=== PATIENT | male | born 1955 | race Caucasian/White ===

== ENCOUNTER → 2020-02-21 11:11 | Outpatient (BNVA) | payer MEDICARE, MEDICAID, SELFPAY | PROVIDERS: PCP Internal Medicine; Visit Provider Urology | DX: R97.20 Elevated prostate specific antigen [PSA] (principal); N40.0 Benign prostatic hyperplasia without lower urinary tract symptoms | CPT/HCPCS: 84153 ==

== ENCOUNTER 2020-08-17 19:28 | Inpatient (IN) | payer MEDICARE, MEDICAID, SELFPAY ==
[2020-08-17 19:38] VITALS: BP 152/98; PULSE 106; RESP 22; TEMP 36.5; O2SAT 95; BMI 19.5
--- NOTE | 2020-08-17 20:15 | XRR_ITS ---
PROCEDURE INFORMATION: Exam: XR Abdomen, 1 View Exam date and time: 08/17/2020 8:23 PM Age: 64 years old Clinical indication: Abdominal pain; Generalized; Prior surgery; Surgery date: 6+ months; Surgery type: Hernia; Additional info: Abd pain TECHNIQUE: Imaging protocol: XR of the abdomen. Views: Frontal supine view of the abdomen. 1 View. COMPARISON: CR Upper GI w/ SBS [id number] 11/19/2017 8:17 AM FINDINGS: Gastrointestinal tract: There are dilated loops of small bowel with air-fluid levels compatible with a partial small bowel obstruction. Greatest transverse measurement of the dilated loops of bowel is 5.2 cm. No dilatation of the colon. Bones/joints: Unremarkable. XR/XR KUB portable [id number] IMPRESSION: Partial small bowel obstruction.
[2020-08-17] MEDS: sodium chloride 0.9% 1,000 ML 999 ML IV (20:43)
[2020-08-17 20:49] LABS: Basophils % 0.4 %; Eosinophils % 0.2 %; Hematocrit 44.1 % (42.0-52.0); Hemoglobin 14.5 g/dL (11.7-16.6); Lymphocytes % 18.3 %; Mean Corpuscular HGB Conc 32.9 g/dL (30.0-36.0); Mean Corpuscular Hemoglobin 32.6 pg (28.0-34.0); Mean Corpuscular Volume 99.1 fL (80-94); Mean Platelet Volume 10.4 fL (7.4-10.4); Monocytes # 0.6 10^3/uL (0.2-0.9); Monocytes % 10.5 %; Neutrophils # 3.96 10^3/uL (1.8-7.7); Neutrophils % 70.4 %; Nucleated Red Blood Cells % 0 %; Platelet Count 190 10^3/cmm (130-400); Red Blood Count 4.45 10^6/uL (4.1-5.3); Red Cell Distribution Width 11.8 % (12.1-15.1); White Blood Count 5.6 10^3/uL (4.0-10.0)
[2020-08-17 21:02] VITALS: BP 146/83; PULSE 86; RESP 18; O2SAT 93
[2020-08-17 21:06] LABS: Alanine Aminotransferase 18 U/L (0-41); Alkaline Phosphatase 108 IU/L (40-130); Anion Gap 13.8 (5-19); Aspartate Amino Transferase 18 U/L (0-40); Blood Urea Nitrogen 40 mg/dL (8-23); Calcium 9.5 mg/dL (8.5-10.5); Carbon Dioxide 29 mmol/L (22-29); Chloride 103 mmol/L (98-107); Globulin 3.1 g/dL (1.3-4.6); Glomerular Filtration Rate 97.3 mL/min (90-130); Glucose 133 mg/dL (65-115); Lipase 27 U/L (13-60); Osmolality Calculated 306 mOsm/kg (285-295); Potassium 3.8 mmol/L (3.5-5.1); Sodium 142 mmol/L (136-145); Total Bilirubin 0.7 mg/dL (0.15-1.2); Total Protein 7.1 g/dL (6.6-8.7)
--- NOTE | 2020-08-17 21:08 | PC.NURSE ---
attempt to void, with caregiver. Pt unable to void. Notified provider Pt receiving IV fluids
[2020-08-17 22:02] VITALS: BP 213/86; PULSE 78; RESP 18; O2SAT 97
--- NOTE | 2020-08-17 22:22 | PC.NURSE ---
caregiver at bedside
--- NOTE | 2020-08-17 22:29 | CTR_ITS ---
PROCEDURE INFORMATION: Exam: CT Abdomen And Pelvis With Contrast Exam date and time: 08/17/2020 10:46 PM Age: 64 years old Clinical indication: Nausea and vomiting; Prior surgery; Surgery date: 6+ months; Surgery type: Hernia; Patient HX: N/v fever; Additional info: Concerns for bowel obstruction TECHNIQUE: Imaging protocol: Computed tomography of the abdomen and pelvis with intravenous contrast. Radiation optimization: All CT scans at this facility use at least one of these dose optimization techniques: automated exposure control; mA and/or kV adjustment per patient size (includes targeted exams where dose is matched to clinical indication); or iterative reconstruction. Contrast material: OMNI 30; Contrast volume: 95 ml; Contrast route: INTRAVENOUS (IV); COMPARISON: CT Chest/Abdomen/Pelvis w IV* 10/13/2017 11:01 AM RADIATION DOSE METRICS: Total DLP (mGy-cm): 334.25 FINDINGS: Lungs: Nonspecific bibasilar ground-glass opacity is present, consistent with atelectasis, edema, or pneumonia. Liver: Unremarkable.No mass. Gallbladder and bile ducts: Normal. No calcified stones. No ductal dilation. Pancreas: Normal. No ductal dilation. Spleen: Normal. No splenomegaly. Adrenal glands: Normal. No mass. Kidneys and ureters: There is no evidence of hydronephrosis. There is no evidence of renal calcifications. Stomach and bowel: There are dilated loops of small bowel with air-fluid levels compatible with a partial small bowel obstruction with a greatest transverse measurement of 4.5 cm. There is an abrupt caliber change in the right upper abdomen where there is a probable internal hernia with loops of small bowel displaced lateral and superior to the hepatic flexure of the colon. There is a stretched appearance of the mesenteric vessels coronal image 36 and sagittal image 56 and exiting loops of bowel are not distended. No dilatation of the colon. There is a small quantity of stool. Appendix: The appendix is unremarkable. Intraperitoneal space: There is a small or old appearance of the mesenteric vessels extending into the hernia with a jacqui-cross sign indicating a twist of the mesenteric vessels into the hernia. Vasculature: Unremarkable.No abdominal aortic aneurysm. Lymph nodes: Unremarkable.No enlarged lymph nodes. Urinary bladder: There is nonspecific bladder wall thickening. This may be related to incomplete distention. Reproductive: The prostate demonstrates moderate nonspecific enlargement. The seminal vesicles are normal. Bones/joints: Unremarkable. No acute fracture. Soft tissues: Unremarkable. CT/CT abdomen pelvis w con* [id number] IMPRESSION: 1. Partial small bowel obstruction with transition zone right upper quadrant within an internal hernia. No pneumatosis or free air. 2. Nonspecific bibasilar ground-glass opacity is present, consistent with atelectasis, edema, or pneumonia. Radiation Dose CTDIVOL = (mGy): DLP = 334.25 (mGy-cm)
--- NOTE | 2020-08-17 22:36 | ED_ITS ---
Documented by User: Salbador Hernandez 08/17/20 23:58 HPI - Nausea/Vomiting/Diarrhea General: Chief complaint: Nausea/Vomiting/Diarrhea Stated complaint: n/v Time Seen by Provider: 08/17/20 19:36 Source: family and other (Caregiver) Mode of arrival: ambulatory Limitations: no limitations History of Present Illness: HPI Narrative: 64-year-old male presents to emergency room chief complaint of appetite reduction and reduced appetite with abdominal pain. Patient presents from a long term facility as he has developmental delay. Per his caregivers he is nonverbal however he reported to have reduced appetite oral intake as well as reduced urination. Per the caregiver the patient has not had any recent fever or chills he has not had any shortness of breath or any obvious infections. Patient has previously had a couple urinary tract infections. The patient did have 1 bowel prior to arrival as witnessed by the caregiver that it was nonbloody in nature. Associated nausea: Yes Associated abdominal pain: Yes Associated symtoms: Reports altered mental status (Chronically altered at baseline per caregiver) and nausea; Denies anxiety, change in vision, chest pain, fatigue, headache(s), malaise or palpitations Review of Systems General: Reports: 10 or more systems reviewed and unremarkable except in HPI and below Const: Denies: fever(s), chills, fatigue or malaise Eyes: Denies: change in vision or blurry vision Card: Denies: chest pain or palpitations Resp: Denies: dyspnea or productive cough GI: Reports: abdominal pain and nausea; Denies: vomiting : Reports: oliguria; Denies: flank pain Musc: Denies: extremity pain or extremity swelling Skin/Breast: Denies: rash or pruritus Neuro: Denies: headache(s) Psych: Denies: anxiety or depression [place]/Lymph: Denies: easy bleeding All/Imm: Denies: urticaria, throat swelling or facial swelling PFSH ED PFSH: Medical History Atherosclerosis Bladder wall thickening Elevated PSA Gross hematuria HTN (hypertension) Mental disorder Nonverbal Prostate enlargement Type 2 diabetes mellitus Surgical History Hx of inguinal hernia repair Family History (Updated 08/18/20 @ 01:52 by Nilesh Briseno MD) Brother Intellectual disability Social History Smoking and tobacco status: never smoked Alcohol intake: never Adopted: Yes Lives independently: No Housing: Assisted Living Facility Marital status: Single Current occupational status: disabled History of recent travel: No Physical Exam Narrative: EXAM NARRATIVE: Patient appears to be in mild discomfort he is non- verbal at baseline per caregiver with no focal neuro deficits noted. Const: COMMON NORMALS: no acute distress, patient oriented x3 and healthy appearing EXAM LIMITATIONS: altered mental status (Chronically altered at baseline per caregiver) HENMT: COMMON NORMALS: normocephalic and atraumatic HEAD & SCALP: normocephalic and atraumatic Eye: COMMON NORMALS: Equal, round and reactive pupils present and EOMs intact bilaterally PUPIL: Yes Equal, round and reactive pupils present Neck/C-Spine: COMMON NORMALS: full ROM, supple and no JVD Lymph: LYMPHATIC: no lymphadenopathy noted Chest: COMMONS NORMALS: normal inspection of the chest Resp: COMMON NORMALS: normal respiratory effort, No retractions and clear to auscultation bilaterally EFFORT & INSPECTION: Yes able to speak in complete sentences and Yes symmetric chest movement AUSCULTATION: clear to auscultation bilaterally Cardio: COMMON NORMALS: no JVD, regular rate and regular rhythm RATE: regular rate RHYTHM: regular rhythm GI: COMMON NORMALS: Soft to palpation and non-tender INSPECTION: Yes normal to inspection AUSCULTATION: Yes Hypoactive bowel sounds present and No High- pitched bowel sounds present PALPATION: Yes Soft to palpation and Yes Guarding due to palpation present (GI) (Guarding noted with mild distention negative McBurney's point tenderness ap) RECTAL EXAM: Yes deferred : COMMON NORMALS: Yes no CVA tenderness BLADDER/KIDNEY EXAM: Yes no CVA tenderness Back/Pelvis: COMMON NORMALS: no CVA tenderness Extremity: COMMON NORMALS: normal to inspection and full ROM Neuro: COMMON NORMALS: patient oriented x3, CN's II-XII intact bilaterally, moves all extremities and no focal motor deficits Psych: COMMON NORMALS: mental status grossly normal, Normal thought process present, cooperative and normal affect THOUGHT PROCESS: Normal thought process present Skin: COMMON NORMALS: no rashes or lesions noted GENERAL SKIN EXAM: no rashes or lesions noted Course Vital Signs: Vital signs: Vital Signs Temperature 97.6 F 08/18/20 02:09 Pulse Rate 84 08/18/20 02:09 Respiratory Rate 18 08/18/20 02:09 Blood Pressure 136/62 08/18/20 02:09 Pulse Oximetry 97 08/18/20 02:09 MDM - Nausea/Vomiting/Diarrhea MDM Narrative: Medical decision making narrative: Due to patient symptom condition IV is established lab work and imaging was obtained underlying concerns of constipation versus abdominal pain versus 1 more to many different things as prominent x-ray imaging was evaluated that reveals ileus versus potential obstruction lots of air in the colon with dilation. At this time lab work looks unremarkable borderline concerns of the of his abdominal distention could be obtundation I will be obtaining a CT of the abdomen pelvis with IV and oral contrast if earlier look into this matter. Patient was found to have a small bowel obstruction due to concerns of internal hernia I spoke to Dr. Wood on-call surgeon who recommends to obtain another CT with triple contrast which the patient possibly may have a malformation congenital contribute to his symptoms which recommends admission to the hospitalist with a consult. Currently waiting on to speak with Dr. Briseno on for the hospitalist service. This patient was signed out to my colleague Dr. Baird at [id number] Lab Data: Labs: Lab Results 08/17/20 08/17/20 08/17/20 Range/Units 20:42 20:42 20:51 WBC 5.6 (4.0-10.0) 10^3/ uL RBC 4.45 (4.1-5.3) 10^6/u L Hgb 14.5 (11.7-16.6) g/dL Hct 44.1 (42.0-52.0) % MCV 99.1 H (80-94) fL MCH 32.6 (28.0-34.0) pg MCHC 32.9 (30.0-36.0) g/dL RDW 11.8 L (12.1-15.1) % Plt Count 190 (130-400) 10^3/c mm MPV 10.4 (7.4-10.4) fL Neut % (Auto) 70.4 % Lymph % (Auto) 18.3 % Newton % (Auto) 10.5 % Eos % (Auto) 0.2 % Baso % (Auto) 0.4 % Neut # (Auto) 3.96 (1.8-7.7) 10^3/u L Lymph # (Auto) 1.0 (0.8-4.8) 10^3/u L Newton # (Auto) 0.6 (0.2-0.9) 10^3/u L Eos # (Auto) 0.0 (0.0-0.8) 10^3/u L Baso # (Auto) 0.0 (0.0-0.1) 10^3/u L Nucleated RBC % (a uto) 0 % Nucleated RBCs # 0.0 /100WBC Sodium 142 (136-145) mmol/L Potassium 3.8 (3.5-5.1) mmol/L Chloride 103 (98-107) mmol/L Carbon Dioxide 29 (22-29) mmol/L Anion Gap 13.8 (5-19) BUN 40 H (8-23) mg/dL Creatinine 0.8 (0.7-1.2) mg/dL GFR Calculation 97.3 (90-130) mL/min Glucose 133 H (65-115) mg/dL Calculated Osmolal ity 306 H (285-295) mOsm/k g Lactate 1.0 (0.5-2.2) mmol/L Calcium 9.5 (8.5-10.5) mg/dL Total Bilirubin 0.7 (0.15-1.2) mg/dL AST 18 (0-40) U/L ALT 18 (0-41) U/L Alkaline Phosphata se 108 (40-130) IU/L Total Protein 7.1 (6.6-8.7) g/dL Albumin 4.0 (3.5-5.2) g/dL Globulin 3.1 (1.3-4.6) g/dL Lipase 27 (13-60) U/L Urine Color (Yellow) Urine Appearance (CLEAR) Urine pH (5-7) Ur Specific Gravit y (1.005-1.030) Urine Protein (Negative) Urine Glucose (UA) (Normal) Urine Ketones (Negative) Urine Blood (Negative) Urine Nitrate (Negative) Urine Bilirubin (Negative) Urine Urobilinogen (Negative) mg/dL Ur Leukocyte Paulien ase (Negative) 08/17/20 Range/Units 22:12 WBC (4.0-10.0) 10^3/ uL RBC (4.1-5.3) 10^6/u L Hgb (11.7-16.6) g/dL Hct (42.0-52.0) % MCV (80-94) fL MCH (28.0-34.0) pg MCHC (30.0-36.0) g/dL RDW (12.1-15.1) % Plt Count (130-400) 10^3/c mm MPV (7.4-10.4) fL Neut % (Auto) % Lymph % (Auto) % Newton % (Auto) % Eos % (Auto) % Baso % (Auto) % Neut # (Auto) (1.8-7.7) 10^3/u L Lymph # (Auto) (0.8-4.8) 10^3/u L Newton # (Auto) (0.2-0.9) 10^3/u L Eos # (Auto) (0.0-0.8) 10^3/u L Baso # (Auto) (0.0-0.1) 10^3/u L Nucleated RBC % (a uto) % Nucleated RBCs # /100WBC Sodium (136-145) mmol/L Potassium (3.5-5.1) mmol/L Chloride (98-107) mmol/L Carbon Dioxide (22-29) mmol/L Anion Gap (5-19) BUN (8-23) mg/dL Creatinine (0.7-1.2) mg/dL GFR Calculation (90-130) mL/min Glucose (65-115) mg/dL Calculated Osmolal ity (285-295) mOsm/k g Lactate (0.5-2.2) mmol/L Calcium (8.5-10.5) mg/dL Total Bilirubin (0.15-1.2) mg/dL AST (0-40) U/L ALT (0-41) U/L Alkaline Phosphata se (40-130) IU/L Total Protein (6.6-8.7) g/dL Albumin (3.5-5.2) g/dL Globulin (1.3-4.6) g/dL Lipase (13-60) U/L Urine Color Yellow (Yellow) Urine Appearance Clear (CLEAR) Urine pH 5 (5-7) Ur Specific Gravit y 1.020 (1.005-1.030) Urine Protein Neg (Negative) Urine Glucose (UA) Norm (Normal) Urine Ketones Negative (Negative) Urine Blood Neg (Negative) Urine Nitrate Negative (Negative) Urine Bilirubin 1+ H (Negative) Urine Urobilinogen 4 H (Negative) mg/dL Ur Leukocyte Pauline ase Negative (Negative) Discharge Plan Discharge Patient Disposition: Admitted As Inpatient Admit Provider: Nilesh Briseno Clinical Impression: Obstructed internal hernia, Partial small bowel obstruction Condition: Stable Coding Level of Care Code ED Medical Territory Manager for Chg Fwd Exam Comprehensive Documented by User: Davy Baird DO 08/18/20 03:36 HPI - Nausea/Vomiting/Diarrhea General: Chief complaint: Nausea/Vomiting/Diarrhea Stated complaint: n/v Time Seen by Provider: 08/17/20 19:36 PFSH ED PFSH: Medical History Atherosclerosis Bladder wall thickening Elevated PSA Gross hematuria HTN (hypertension) Mental disorder Nonverbal Prostate enlargement Type 2 diabetes mellitus Surgical History Hx of inguinal hernia repair Family History (Updated 08/18/20 @ 01:52 by Nilesh Briseno MD) Brother Intellectual disability Social History Smoking and tobacco status: never smoked Alcohol intake: never Adopted: Yes Lives independently: No Housing: Assisted Living Facility Marital status: Single Current occupational status: disabled History of recent travel: No Course Vital Signs: Vital signs: Vital Signs Temperature 97.6 F 08/18/20 02:09 Pulse Rate 84 08/18/20 02:09 Respiratory Rate 18 08/18/20 02:09 Blood Pressure 136/62 08/18/20 02:09 Pulse Oximetry 97 08/18/20 02:09 MDM - Nausea/Vomiting/Diarrhea MDM Narrative: Medical decision making narrative: 64-year-old gentleman checked out to me by Dr. Zamarripa. This patient is nonverbal. History is tough. He appears to have a bowel obstruction by CT. Surgery who was consulted requested an oral contrast CT, which shows similar findings with dilated loops of small bowel proximally distended stomach, and a decompressed distal small bowel. NG tube was placed in the emergency department with good output. He is admitted to the hospitalist service with surgical consultation. Lab Data: Labs: Lab Results 08/17/20 08/17/20 08/17/20 Range/Units 20:42 20:42 20:51 WBC 5.6 (4.0-10.0) 10^3/ uL RBC 4.45 (4.1-5.3) 10^6/u L Hgb 14.5 (11.7-16.6) g/dL Hct 44.1 (42.0-52.0) % MCV 99.1 H (80-94) fL MCH 32.6 (28.0-34.0) pg MCHC 32.9 (30.0-36.0) g/dL RDW 11.8 L (12.1-15.1) % Plt Count 190 (130-400) 10^3/c mm MPV 10.4 (7.4-10.4) fL Neut % (Auto) 70.4 % Lymph % (Auto) 18.3 % Newton % (Auto) 10.5 % Eos % (Auto) 0.2 % Baso % (Auto) 0.4 % Neut # (Auto) 3.96 (1.8-7.7) 10^3/u L Lymph # (Auto) 1.0 (0.8-4.8) 10^3/u L Newton # (Auto) 0.6 (0.2-0.9) 10^3/u L Eos # (Auto) 0.0 (0.0-0.8) 10^3/u L Baso # (Auto) 0.0 (0.0-0.1) 10^3/u L Nucleated RBC % (a uto) 0 % Nucleated RBCs # 0.0 /100WBC Sodium 142 (136-145) mmol/L Potassium 3.8 (3.5-5.1) mmol/L Chloride 103 (98-107) mmol/L Carbon Dioxide 29 (22-29) mmol/L Anion Gap 13.8 (5-19) BUN 40 H (8-23) mg/dL Creatinine 0.8 (0.7-1.2) mg/dL GFR Calculation 97.3 (90-130) mL/min Glucose 133 H (65-115) mg/dL Calculated Osmolal ity 306 H (285-295) mOsm/k g Lactate 1.0 (0.5-2.2) mmol/L Calcium 9.5 (8.5-10.5) mg/dL Total Bilirubin 0.7 (0.15-1.2) mg/dL AST 18 (0-40) U/L ALT 18 (0-41) U/L Alkaline Phosphata se 108 (40-130) IU/L Total Protein 7.1 (6.6-8.7) g/dL Albumin 4.0 (3.5-5.2) g/dL Globulin 3.1 (1.3-4.6) g/dL Lipase 27 (13-60) U/L Urine Color (Yellow) Urine Appearance (CLEAR) Urine pH (5-7) Ur Specific Gravit y (1.005-1.030) Urine Protein (Negative) Urine Glucose (UA) (Normal) Urine Ketones (Negative) Urine Blood (Negative) Urine Nitrate (Negative) Urine Bilirubin (Negative) Urine Urobilinogen (Negative) mg/dL Ur Leukocyte Pauline ase (Negative) 08/17/20 Range/Units 22:12 WBC (4.0-10.0) 10^3/ uL RBC (4.1-5.3) 10^6/u L Hgb (11.7-16.6) g/dL Hct (42.0-52.0) % MCV (80-94) fL MCH (28.0-34.0) pg MCHC (30.0-36.0) g/dL RDW (12.1-15.1) % Plt Count (130-400) 10^3/c mm MPV (7.4-10.4) fL Neut % (Auto) % Lymph % (Auto) % Newton % (Auto) % Eos % (Auto) % Baso % (Auto) % Neut # (Auto) (1.8-7.7) 10^3/u L Lymph # (Auto) (0.8-4.8) 10^3/u L Newton # (Auto) (0.2-0.9) 10^3/u L Eos # (Auto) (0.0-0.8) 10^3/u L Baso # (Auto) (0.0-0.1) 10^3/u L Nucleated RBC % (a uto) % Nucleated RBCs # /100WBC Sodium (136-145) mmol/L Potassium (3.5-5.1) mmol/L Chloride (98-107) mmol/L Carbon Dioxide (22-29) mmol/L Anion Gap (5-19) BUN (8-23) mg/dL Creatinine (0.7-1.2) mg/dL GFR Calculation (90-130) mL/min Glucose (65-115) mg/dL Calculated Osmolal ity (285-295) mOsm/k g Lactate (0.5-2.2) mmol/L Calcium (8.5-10.5) mg/dL Total Bilirubin (0.15-1.2) mg/dL AST (0-40) U/L ALT (0-41) U/L Alkaline Phosphata se (40-130) IU/L Total Protein (6.6-8.7) g/dL Albumin (3.5-5.2) g/dL Globulin (1.3-4.6) g/dL Lipase (13-60) U/L Urine Color Yellow (Yellow) Urine Appearance Clear (CLEAR) Urine pH 5 (5-7) Ur Specific Gravit y 1.020 (1.005-1.030) Urine Protein Neg (Negative) Urine Glucose (UA) Norm (Normal) Urine Ketones Negative (Negative) Urine Blood Neg (Negative) Urine Nitrate Negative (Negative) Urine Bilirubin 1+ H (Negative) Urine Urobilinogen 4 H (Negative) mg/dL Ur Leukocyte Pauline ase Negative (Negative) Discharge Plan Discharge Patient Disposition: Admitted As Inpatient Admit Provider: Nilesh Briseno Clinical Impression: Obstructed internal hernia, Partial small bowel obstruction Condition: Stable Coding Level of Care Code ED Medical Territory Manager for Chg Fwd Exam Comprehensive
[2020-08-17 22:42] LABS: Add Urine Microscopic? NO
[2020-08-17 22:52] LABS: Bilirubin Urine 1+ (Negative); Blood Urine Neg (Negative); Glucose Urine UA Norm (Normal); Ketones Urine Negative (Negative); Leukocyte Esterase Urine Negative (Negative); Nitrate Urine Negative (Negative); Protein Urine Neg (Negative); Urine Appearance Clear (CLEAR); Urine Color Yellow (Yellow); Urobilinogen Urine 4 mg/dL (Negative); pH Urine 5 (5-7)
[2020-08-17 23:00] VITALS: BP 133/86; PULSE 86; RESP 18; O2SAT 97
[2020-08-17] MEDS: iohexol 300 mg/mL 100 mL Btl IV (23:01)
--- NOTE | 2020-08-17 23:44 | CTR_ITS ---
PROCEDURE INFORMATION: Exam: CT Abdomen And Pelvis Without Contrast Exam date and time: 08/17/2020 12:05 AM Age: 64 years old Clinical indication: Other: Bowel obstruction TECHNIQUE: Imaging protocol: Computed tomography of the abdomen and pelvis without contrast. Radiation optimization: All CT scans at this facility use at least one of these dose optimization techniques: automated exposure control; mA and/or kV adjustment per patient size (includes targeted exams where dose is matched to clinical indication); or iterative reconstruction. COMPARISON: CT abdomen pelvis w con* [id number] 08/17/2020 10:49 PM RADIATION DOSE METRICS: Total DLP (mGy-cm): 458.27 FINDINGS: Lungs: There is subsegmental atelectasis in the lung bases. Liver: The liver is normal. Gallbladder and bile ducts: Cholelithiasis is present. There is no sign of cholecystitis. Pancreas: There is mild atrophy of the pancreas. Spleen: The spleen is unremarkable. Adrenal glands: The adrenal glands are unremarkable. Kidneys and ureters: The kidneys are unremarkable. No hydronephrosis or stones. No ureteral dilation. Stomach and bowel: The stomach is distended and thin walled. There is a long segment of moderately dilated small-bowel similar to the findings on 08/17/2020. The terminal ileum is decompressed. The colon is unremarkable. Appendix: The appendix is normal. Intraperitoneal space: There is no free air or significant intraperitoneal free fluid. Vasculature: There is mild aortic atherosclerotic disease. Lymph nodes: There is no lymphadenopathy in the retroperitoneum, mesentery, pelvis or inguinal regions. Urinary bladder: The urinary bladder is unremarkable. Reproductive: The prostate and seminal vesicles are unremarkable. Bones/joints: There is mild degenerative disease in the lumbar spine. The pelvis and hips are intact. Soft tissues: The abdominal wall is intact. CT/CT abdomen pelvis wo con [id number] IMPRESSION: Distal small-bowel obstruction with unchanged bowel dilation since yesterday. Radiation Dose CTDIVOL = (mGy): DLP = 458.27 (mGy-cm)
[2020-08-18] VITALS (22 sets, daily range): BP systolic 133–187; BP diastolic 62–98; PULSE 69–99; RESP 16–20; TEMP 36.4–37.3; O2SAT 90–100
--- NOTE | 2020-08-18 00:05 | PC.NURSE ---
Pt drinking contrast dye. Review with provider, hold NG tube till after 2nd CT scan. Notified caregiver.
--- NOTE | 2020-08-18 00:12 | PM.HP ---
Providers/Chief Complaint Primary Care Provider: Shu Anders MD Chief Complaint: n/v History of Present Illness Grady Britton is a 64 year old male who has history of inguinal hernia repair, intellectual disability, was brought into the hospital for chief complaint of emesis, fever and discomfort. Patient is nonverbal, caregiver is at the bedside who is endorsing that since he has had total 6 episodes of emesis, no blood was noticed, fever 101 was noted yesterday and today, today caregiver noticed that he was hunching forward with his hands around right upper quadrant area. No recent diarrhea was noticed, his recent bowel movement was today which was small caliber, yesterday his bowel movement was regular. He does get bowel regimen for constipation. At baseline he is able to walk on his own, eats regular diet, mostly flaps his arms and clap his hand. Follows up with Dr. Dudley for BPH. Diagnosis in the ER revealed normal hemodynamics, no leukocytosis, normal lactic acid, abdomen is not consistent with any mesenteric ischemia or colitis however CT abdomen revealed small bowel obstruction with hernia, Dr. Wood has been notified who has requested CT abdomen with contrast and Zosyn antibiotic Review of Systems General: Reports: ROS unobtainable due to medical condition (Intellectual disability) Medications/Allergies Home Medications Medication Instructions Recorded Confirmed Last Taken Type acetaminophen 325 mg capsule 325 mg PO .COMPLEX PRN 02/21/20 02/21/20 Unknown History bisacodyl 10 mg rectal suppository 10 mg MO DAILY PRN 02/21/20 02/21/20 Unknown History bismuth subsalicylate 525 mg/15 mL 525 mg PO Q30M PRN 02/21/20 02/21/20 Unknown History oral suspension dextromethorphan 5 mg-guaifenesin 20 ml PO .prn ml 02/21/20 02/21/20 Unknown History 50 mg/5 mL oral liquid ibuprofen 100 mg/5 mL oral 400 mg PO Q6H 02/21/20 02/21/20 Unknown History suspension lactulose 10 gram/15 mL oral 10 gm PO .prn ml 02/21/20 02/21/20 Unknown History solution loperamide 2 mg tablet 4 mg PO Q4H tab 02/21/20 02/21/20 Unknown History lovastatin 10 mg tablet 10 mg PO DAILY 02/21/20 02/21/20 Unknown History melatonin 10 mg capsule 10 mg PO .prn cap 02/21/20 02/21/20 Unknown History neomycin 3.5 mg-bacitracn Zn 400 gm TOPICAL 02/21/20 02/21/20 Unknown History unit-polymyxin 5,000 unit/g top spray ondansetron 4 mg disintegrating 4 mg PO .prn tab 02/21/20 02/21/20 Unknown History tablet polyethylene glycol 3350 17 17 gm PO DAILY 02/21/20 02/21/20 Unknown History gram/dose oral powder promethazine 25 mg tablet 25 mg PO TID PRN 02/21/20 02/21/20 Unknown History promethazine-DM 6.25 mg-15 mg/5 mL 5 ml PO Q6H PRN 02/21/20 02/21/20 Unknown History oral syrup Allergies Allergy/AdvReac Type Severity Reaction Status Date / Time No Known Allergies Allergy Unverified 02/21/20 11:01 PFSH Acute PFSH: Medical History Atherosclerosis Bladder wall thickening Elevated PSA Gross hematuria HTN (hypertension) Mental disorder Nonverbal Prostate enlargement Type 2 diabetes mellitus Surgical History Hx of inguinal hernia repair Family History (Updated 08/18/20 @ 01:52 by Nilesh Briseno MD) Brother Intellectual disability Social History Smoking and tobacco status: never smoked Alcohol intake: never Adopted: Yes Lives independently: No Housing: Assisted Living Facility Marital status: Single Current occupational status: disabled History of recent travel: No Vitals/I&O/Wt Last Vital Signs Temp 97.7 F 08/17/20 19:38 Pulse 74 08/18/20 00:00 Resp 20 H 08/18/20 00:00 BP 133/84 08/18/20 00:00 Pulse Ox 98 08/18/20 00:00 08/17/20 08/17/20 08/18/20 14:59 22:59 06:59 Intake Total 1000 / 1000 Balance 1000 / 1000 Weight last 48 hrs Weight 63.503 kg Physical Exam Narrative: EXAM NARRATIVE: Middle-age male Thin built He mostly flaps his arms and claps Not able to tell me about his abdominal pain however no facial grimacing noticed on deep palpation of his abdomen Hyperactive bowel sounds noted in all quadrants, very mild abdominal bloating S1, S2 no tachycardia or signs of heart failure Bilateral breath sounds without adventitious rhonchi or crackles Lower extremity no edema gangrene ulcer, Thin lower extremities, muscle mass loss Neuro exam limited due to intellectual disability however he is moving all 4 extremities, I do not see any strokelike symptoms Clinically looks slightly dehydrated As per the caregiver his mood is at baseline, patient was smiling during my evaluation Data : 08/17/20 20:42 08/17/20 20:42 A&P Assessment and plan (1) Obstructed internal hernia: Status: Acute (2) Partial small bowel obstruction: Status: Acute Additional A&P Information Distal small bowel obstruction Patient is currently awaiting contrast study No signs of ischemic colitis or mesenteric ischemia, incarcerated hernia not ruled out however no pneumatosis or signs of peritonitis There is no leukocytosis, lactic acid is normal, normal hemodynamics We will place NG tube to low intermittent suction Keep him n.p.o. D5 half-normal fluid maintenance rate General surgery has been consulted and updated, Dr. Siddiqui has requested Zosyn and abdominal pelvis CT scan with contrast: Contrast study revealed severe distended stomach small bowel with no contrast transitioning to colon, will ask ERnurse to place nasogastric tube to low intermittent suction Coles catheter will be placed Considering intellectual disability he might not cooperate for the procedure, would request one-to-one sitter If he starts having loose stool more than 3 episodes in the day then would request Cdiff panel DVT prophylaxis SCDs, avoid anticoagulation in case he required intervention N.p.o. Full code Attestations Medical Necessity Statement*: Anticipating stay in the hospital course more than 2 midnights, he needs management for partial small bowel obstruction, Time Spent in Patient Care: (>than 50% of time spent in counselling and/or direct pt care on unit). 40mins Coding Level of Care Code Acute Senior Materials Analyst for Chg Fwd Diagnoses Obstructed internal hernia K45.0 Partial small bowel obstruction K56.600
[2020-08-18] MEDS: piperacillin-tazobactam 3.375 GM in sodium chloride 0.9% (plus) 50 ML IV ×3 (01:54→20:19)
[2020-08-18] MEDS: midazolam 1 mg/mL INJ 2 mL 2 MG IVP (02:17)
[2020-08-18] MEDS: cetacaine Spray 5 gm Can 1 SPRAY TOPICAL (02:17)
--- NOTE | 2020-08-18 02:32 | XRR_ITS ---
PROCEDURE INFORMATION: Exam: XR Chest, 1 View Exam date and time: 08/18/2020 2:32 AM Age: 64 years old Clinical indication: Device placement; Ng tube TECHNIQUE: Imaging protocol: XR of the chest Views: 1 view. COMPARISON: CT chest con [id number] 04/15/2018 10:26 AM FINDINGS: Lungs: Unremarkable. No consolidation. Pleural space: Unremarkable. No pleural effusion. No pneumothorax. Heart/Mediastinum: Unremarkable. No cardiomegaly. Bones/joints: Unremarkable. Gastrointestinal tract: Dilated small bowel loop is seen under the right hemidiaphragm. An NG tube is seen with the tip in the stomach. XR/XR chest 1V portable [id number] IMPRESSION: 1. The NG tube tip is in the stomach. 2. Dilated small bowel loops is seen under the right hemidiaphragm.
[2020-08-18] MEDS: D5-NS 0.45% + KCL 20 mEq 20 MEQ/1,000 ML BAG 75 MEQ IV (04:55)
[2020-08-18] MEDS: morphine 4 mg/mL SDV 1 mL 2 MG IVP ×4 (05:02→20:24)
[2020-08-18 05:50] LABS: Basophils % 0.4 %; Eosinophils % 0.2 %; Hematocrit 43.4 % (42.0-52.0); Hemoglobin 13.9 g/dL (11.7-16.6); Lymphocytes % 18.7 %; Mean Corpuscular Hemoglobin 32.5 pg (28.0-34.0); Mean Corpuscular Volume 101.4 fL (80-94); Mean Platelet Volume 10.4 fL (7.4-10.4); Monocytes # 0.4 10^3/uL (0.2-0.9); Monocytes % 7.9 %; Neutrophils # 3.97 10^3/uL (1.8-7.7); Neutrophils % 72.8 %; Nucleated Red Blood Cells % 0 %; Platelet Count 169 10^3/cmm (130-400); Red Blood Count 4.28 10^6/uL (4.1-5.3); Red Cell Distribution Width 11.9 % (12.1-15.1); White Blood Count 5.5 10^3/uL (4.0-10.0)
--- NOTE | 2020-08-18 06:04 | P.CONIM_ITS ---
Providers/Reason For Consult Consulting Physican/Specialty*: Mir Siddiqui MD Reason for Consult*: Bowel obstruction Attending Physician: Nilesh Briseno MD Primary Care Provider: Shu Anders MD History of Present Illness History of Present Illness Grady Britton is a 64 year old male none verbal patient does have intellectual disability he came to the hospital with history of vomiting fever and discomfort. Patient had history of surgical intervention of the abdomen via lower abdominal incision which is not clear per records what kind of surgery that the patient had. Last patient had total episodes of 6 of vomiting and had a fever of 101 yesterday. Patient had previous urological intervention in the form of cystoscopy and an enlarged prostate. Further work-up in the emergency department found to have normal labs that the CT scan of the abdomen and pelvis without oral contrast was done that showed: 1. Partial small bowel obstruction with transition zone right upper quadrant within an internal hernia. No pneumatosis or free air. 2. Nonspecific bibasilar ground-glass opacity is present, consistent with atelectasis, edema, or pneumonia. I was contacted by those findings and I elected to send the patient for CT scan with oral contrast to have a better understanding of the underlying surgical anatomy and a repeat CT scan showed: Distal small-bowel obstruction with unchanged bowel dilation since yesterday. Patient had an NG tube placement and had about 600 mL out including some of the oral contrast After further history obtained from patient's legal guardian Ms. Yesika Britton patient's sister she mentioned that the patient had an umbilical hernia and an inguinal hernia in the past back in 2001 and the mesh was placed but she does not remember what was the location of the mesh. Review of Systems General: Reports: ROS unobtainable due to medical condition Meds/Allergies Home Medications and Allergies Home Medications Medication Instructions Recorded Confirmed Last Taken Type acetaminophen 325 mg capsule 650 mg PO Q4H PRN 02/21/20 08/18/20 Unknown History bisacodyl 10 mg rectal suppository 10 mg DC DAILY PRN 02/21/20 08/18/20 Unknown History bismuth subsalicylate 525 mg/15 mL 525 mg PO Q4H PRN 02/21/20 08/18/20 Unknown History oral suspension ibuprofen 100 mg/5 mL oral 400 mg PO Q6H 02/21/20 08/18/20 Unknown History suspension lactulose 10 gram/15 mL oral 10 gm PO DAILY PRN ml 02/21/20 08/18/20 Unknown History solution loperamide 2 mg tablet 4 mg PO Q4H PRN tab 02/21/20 08/18/20 Unknown History lovastatin 10 mg tablet 10 mg PO DAILY 02/21/20 08/18/20 08/16/20 20:00 History melatonin 10 mg capsule 10 mg PO BEDTIME PRN cap 02/21/20 08/18/20 08/02/20 20:00 History neomycin 3.5 mg-bacitracn Zn 400 1 gm TOPICAL PRN 02/21/20 08/18/20 Unknown History unit-polymyxin 5,000 unit/g top spray ondansetron 4 mg disintegrating 4 mg PO Q6H PRN tab 02/21/20 08/18/20 Unknown History tablet polyethylene glycol 3350 17 17 gm PO DAILY 02/21/20 08/18/20 08/17/20 08:00 History gram/dose oral powder promethazine 25 mg tablet 25 mg PO Q6H PRN 02/21/20 08/18/20 Unknown History promethazine-DM 6.25 mg-15 mg/5 mL 5 ml PO Q6H PRN 02/21/20 08/18/20 Unknown History oral syrup Allergies Allergy/AdvReac Type Severity Reaction Status Date / Time No Known Allergies Allergy Unverified 08/18/20 06:22 Current Medications Current Medications Generic Name Dose Route Start Last Admin Trade Name Freq PRN Reason Stop Dose Admin Potassium Chloride/Dextrose/Sod Cl 20 meq in 1,000 mls @ 75 mls/hr 08/18/20 03:35 08/18/20 04:55 D5-Ns 0.45% + Kcl 20 Meq IV 75 mls/hr .[id number] EVELYN Administration Morphine Sulfate 2 mg 08/18/20 03:35 08/18/20 05:02 Morphine 4 Mg/Ml Sdv 1 Ml IVP 2 mg Q4H EVELYN Administration PFSH Acute PFSH: Medical History Atherosclerosis Bladder wall thickening Elevated PSA Gross hematuria HTN (hypertension) Mental disorder Nonverbal Prostate enlargement Type 2 diabetes mellitus Surgical History Hx of inguinal hernia repair Family History Brother Intellectual disability Social History Smoking and tobacco status: never smoked Alcohol intake: never Adopted: Yes Lives independently: No Housing: Assisted Living Facility Marital status: Single Current occupational status: disabled History of recent travel: No Vitals/I&O/Wt Last Vital Signs Temp 98.6 F 08/18/20 03:59 Pulse 72 08/18/20 03:59 Resp 18 08/18/20 05:02 BP 135/72 08/18/20 03:59 Pulse Ox 94 08/18/20 03:59 08/17/20 08/17/20 08/18/20 14:59 22:59 06:59 Intake Total 1000 / 1000 Output Total 800 / 800 Balance 1000 / 1000 -800 / 200 Weight last 48 hrs Weight 140 lb Physical Exam Narrative: EXAM NARRATIVE: Patient is conscious alert/intellectually disabled. NG in place with gastric content BMI 19.5 Head and neck examination PERRLA no masses no cervical lymphadenopathy no jaundice Cardiac examination audible S1-S2 no murmurs no gallops no arrhythmias Chest is clear bilateral,abscence of Rhonchi or wheezes,no surgical emphysema Abdomen nontender nondistended soft no organomegaly guarding or rigidity/no signs of peritonitis Lower midline suprapubic scar Extremities no cyanosis no clubbing no edema A&P Assessment and plan (1) Partial small bowel obstruction: After limited history physical examination and reviewing the chart and images with my personal interpretation, we will have the patient NG to low intermittent wall suction. Repeated physical examination Switch the fluids to normal saline for resuscitation in the form of 125 mL/h Strict I's and O's We will plan to review the CT scan images radiologist clinical education specialist. After reviewing the CT scan images with the radiologist clinical education specialist and in comparison to previous CT scan that was done back in 2018, the appearance of the small bowel being trapped in the right upper quadrant was not there before and thus likely the patient have adhesive band or some sort of incarceration that developed over time, at this point with concern of internal herniation as mentioned on the CT scan. my plan is to take the patient for surgery in the form of diagnostic laparoscopy possible laparotomy possible bowel resection and possible colostomy. Discussion with Ms. Yesika Britton patient's sister and guardian over the phone [phone]. In the presence of patient's nurse Shola, I did discuss in length and in depth about the procedure and options of treatment including nonsurgical option which may increase her risk of mortality and morbidity. Surgery in the form of diagnostic laparoscopy, possible laparotomy, possible bowel resection possible colostomy and Ms. Napoles gave us an informed consent and she understands the perioperative mortality and morbidity associated with this procedure and the challenges that the patient may encounter due to his mental status postoperatively. An informed consent per chart Status: Acute (2) Obstructed internal hernia: Diagnostic laparoscopy possible laparotomy possible bowel resection and possible colostomy. Informed consent per chart obtained from patient's legal guardian Ms. Yesika Britton and witnessed by patient's nurse Shola Status: Acute Consult Attestations Medical Necessity Statement: Continue hospitalization for medical and surgical care Time Spent in Patient Care: 16 - 35 minutes (>than 50% of time spent in counselling and/or direct pt care on unit) . Coding Level of Care Code Acute Courier Driver for Chg Fwd Diagnoses Partial small bowel obstruction K56.600 Obstructed internal hernia K45.0
[2020-08-18 06:18] LABS: Anion Gap 10.6 (5-19); Blood Urea Nitrogen 33 mg/dL (8-23); Calcium 9.1 mg/dL (8.5-10.5); Carbon Dioxide 32 mmol/L (22-29); Chloride 104 mmol/L (98-107); Glomerular Filtration Rate 97.3 mL/min (90-130); Glucose 104 mg/dL (65-115); Osmolality Calculated 304 mOsm/kg (285-295); Potassium 3.6 mmol/L (3.5-5.1); Sodium 143 mmol/L (136-145)
[2020-08-18] MEDS: sodium chloride 0.9% 1,000 ML 125 ML IV ×2 (07:22→14:11)
[2020-08-18 07:27] LABS: Glucose Point of Care 85 mg/dL (70-110)
--- NOTE | 2020-08-18 07:42 | PC.NURSE ---
AFTER DR. SPENCER EXPLAINED TO THE PATIENT'S GUARDIAN, WHO IS ALSO HIS SISTER, THIS NURSE CONFIRMED HER UNDERSTANDING. SHE ASKED TO HAVE THE PROCEDURE AND PROCESS EXPLAINED AGAIN. THIS NURSE WENT INTO DETAIL OF THE POSSIBLE SURGERY AND THE STEPS THAT DR. RUSS WOULD TAKE. THE RISKS WERE ALSO EXPLAINED. THE SISTER GAVE VERBAL CONSENT TO PERFORM THE PROCEDURE TO THIS NURSE AND ALSO DR. RUSS. AT THIS TIME THE SISTER/ GUARDIAN ALSO CHANGED THE PATIENT'S CODE STATUS FROM FULL TO ALLOW NATURAL . THIS WAS UPDATED IN PATIENT CHART.
--- NOTE | 2020-08-18 09:29 | ANES.PREANE2 ---
Pre-Anesthetic Assessment Pre-Anesthetic Assessment: Height/Weight: Height 1.8 m Weight 63.503 kg Temp Pulse Resp BP Pulse Ox 97.7 F 80 18 156/89 95 08/18/20 07:41 08/18/20 07:41 08/18/20 07:41 08/18/20 07:41 08/18/20 07:41 Proposed Procedure: Operation Date: 08/18/20 11:05 Proposed Procedures p Diagnostic Laparoscopy, possible laparotomy, possible bowel resection, possible colostomy(Not Applicable) - Mir Siddiqui MD Was Beta Ritesh taken within 24 hours: N/A Social: Social History: No tobacco Exam: Pre-Anes Outpt Exam: alert, oriented x 3, clear to auscultation bilaterally and regular rate & rhythm Airway: Submandibular: WNL Cervical ROM: WNL MP: 2 Additional comments: Edentulous CV/HEM: CV/HEM: None reported : : None reported Hepatic: Hepatic: None reported GI: Comments: SBO Metabolic: Metabolic: None reported Musc/skel: Musc/skel: None reported Neuropsych: Comments: Mental deficiency Anesthetic Plan: ASA status: 2E Anesthesia: General Other: RSI Risk of > 500 ml blood loss (7ml/kg in children): No Meds/Allergies Current Medications: Current Medications Generic Name Dose Route Start Last Admin Trade Name Freq PRN Reason Stop Dose Admin Sodium Chloride 1,000 mls @ 125 m ls/hr 08/18/20 06:15 08/18/20 07:22 Sodium Chloride 0.9% IV 125 mls/hr .Q8H EVELYN Administration Morphine Sulfate 2 mg 08/18/20 03:35 08/18/20 08:34 Morphine 4 Mg/Ml Sdv 1 Ml IVP 2 mg Q4H EVELYN Administration PFSH Anesthesia PFSH: Medical History Atherosclerosis Bladder wall thickening Elevated PSA Gross hematuria HTN (hypertension) Mental disorder Nonverbal Prostate enlargement Type 2 diabetes mellitus Surgical History Hx of inguinal hernia repair Family History Brother Intellectual disability Social History Smoking and tobacco status: never smoked Alcohol intake: never Adopted: Yes Lives independently: No Housing: Assisted Living Facility Marital status: Single Current occupational status: disabled History of recent travel: No Data Anesthesia CBC & Chem 7: 08/18/20 05:40 08/18/20 05:40 Other Labs: Laboratory Results - last 48 hr 08/17/20 08/17/20 08/17/20 20:42 20:42 20:51 WBC 5.6 RBC 4.45 Hgb 14.5 Hct 44.1 MCV 99.1 H MCH 32.6 MCHC 32.9 RDW 11.8 L Plt Count 190 MPV 10.4 Neut % (Auto) 70.4 Lymph % (Auto) 18.3 [place] % (Auto) 10.5 Eos % (Auto) 0.2 Baso % (Auto) 0.4 Neut # (Auto) 3.96 Lymph # (Auto) 1.0 [place] # (Auto) 0.6 Eos # (Auto) 0.0 Baso # (Auto) 0.0 Nucleated RBC % (auto) 0 Nucleated RBCs # 0.0 Sodium 142 Potassium 3.8 Chloride 103 Carbon Dioxide 29 Anion Gap 13.8 BUN 40 H Creatinine 0.8 GFR Calculation 97.3 Glucose 133 H POC Glucose Calculated Osmolality 306 H Lactate 1.0 Calcium 9.5 Total Bilirubin 0.7 AST 18 ALT 18 Alkaline Phosphatase 108 Total Protein 7.1 Albumin 4.0 Globulin 3.1 Lipase 27 Urine Color Urine Appearance Urine pH Ur Specific [place] Urine Protein Urine Glucose (UA) Urine Ketones Urine Blood Urine Nitrate Urine Bilirubin Urine Urobilinogen Ur Leukocyte Esterase 08/17/20 08/18/20 08/18/20 22:12 05:40 05:40 WBC 5.5 RBC 4.28 Hgb 13.9 Hct 43.4 MCV 101.4 H MCH 32.5 MCHC 32.0 RDW 11.9 L Plt Count 169 MPV 10.4 Neut % (Auto) 72.8 Lymph % (Auto) 18.7 [place] % (Auto) 7.9 Eos % (Auto) 0.2 Baso % (Auto) 0.4 Neut # (Auto) 3.97 Lymph # (Auto) 1.0 [place] # (Auto) 0.4 Eos # (Auto) 0.0 Baso # (Auto) 0.0 Nucleated RBC % (auto) 0 Nucleated RBCs # 0.0 Sodium 143 Potassium 3.6 Chloride 104 Carbon Dioxide 32 H Anion Gap 10.6 BUN 33 H Creatinine 0.8 GFR Calculation 97.3 Glucose 104 POC Glucose Calculated Osmolality 304 H Lactate Calcium 9.1 Total Bilirubin AST ALT Alkaline Phosphatase Total Protein Albumin Globulin Lipase Urine Color Yellow Urine Appearance Clear Urine pH 5 Ur Specific [place] 1.020 Urine Protein Neg Urine Glucose (UA) Norm Urine Ketones Negative Urine Blood Neg Urine Nitrate Negative Urine Bilirubin 1+ H Urine Urobilinogen 4 H Ur Leukocyte Esterase Negative 08/18/20 08/18/20 05:40 07:19 WBC RBC Hgb Hct MCV MCH MCHC RDW Plt Count MPV Neut % (Auto) Lymph % (Auto) [place] % (Auto) Eos % (Auto) Baso % (Auto) Neut # (Auto) Lymph # (Auto) [place] # (Auto) Eos # (Auto) Baso # (Auto) Nucleated RBC % (auto) Nucleated RBCs # Sodium Potassium Chloride Carbon Dioxide Anion Gap BUN Creatinine GFR Calculation Glucose POC Glucose 85 Calculated Osmolality Lactate 1.0 Calcium Total Bilirubin AST ALT Alkaline Phosphatase Total Protein Albumin Globulin Lipase Urine Color Urine Appearance Urine pH Ur Specific [place] Urine Protein Urine Glucose (UA) Urine Ketones Urine Blood Urine Nitrate Urine Bilirubin Urine Urobilinogen Ur Leukocyte Esterase Cardiac Studies: No Data to Display
[2020-08-18] MEDS: heparin 5,000 unit/mL INJ 1 mL 2000 UNIT SUBCUT (10:51)
[2020-08-18] MEDS: ceFAZolin 1,000 mg SDV 2000 MG IVP (11:44)
[2020-08-18] MEDS: lidocaine 2% INJ 20 mL INJECTION (12:06)
--- NOTE | 2020-08-18 12:36 | SUR.OPER ---
Family Notified Of Patient's Status Via Phone.
--- NOTE | 2020-08-18 13:15 | P.OP_ITS ---
Operative Report Date of procedure: August 18, 2020 Pre-op Diagnosis: Internal herniation Post-op Diagnosis: Intra-abdominal adhesions creating internal herniation particularly towards the right side of the abdomen were omental bands had a small bowel loop herniated through yet still viable Procedure Done: Diagnostic laparoscopy with intra-abdominal adhesiolysis Specimens removed/disposition: Omental band Surgeon: Mir Siddiqui Biochemistry Technologist: Surgical techs Kit duarte and Sabrina Circulating nurses Jorge and Vika PRO Anesthesia: General (Leonel Dowling and Dr. Wu) Estimated blood loss (mL): 15 IV fluids (mL): 800 Urine output (mL): 500 Condition: stable Disposition: floor Brief History: Full H&P per chart Pleasant 64 years old gentleman with findings concerning of internal herniation of the bowel Procedure: After identifying the patient in the holding area, was taken to the operating room, placed in supine position, intubated by anesthesia, prophylactic IV antibiotics were given per protocol. Heparin subcu was given to the patient for prophylaxis prior to surgery. Coles catheter was inserted by the circulating nurse revealing clear urine,time- out was done verifying the patient's name/date of /planned procedure and destination after the procedure, all were in agreement.Anesthesia was asked to introduce a Nasogastric tube for stomach decompression. Patient was appropriately secured to the table, all pressure points were padded Prep and drape of the abdomen was done under the usual sterile technique, a Cardoza trocar technique was used through a supraumbilical skin incision avoiding the lower midline scar at the infraumbilical area, two stay sutures were applied to the fascia, and safe entrance to the abdominal cavity was achieved, low flow followed by high flow of CO2 gas, started by 0 scope 10 mm, no injuries were detected, followed by that a 30? millimeter scope was inserted a. A 5 mm trocar was inserted under direct vision in the right upper quadrant, followed by a right lower quadrant, and another two 5 mm trocars were inserted as a mirror image from the first 2 but on the left side, to enable running the small bowel, from each side of the operating table. Position of the patient was done in T Valenzuela and reversed T Valenzuela so I was able to inspect the whole abdominal cavity safely Patient was noticed to have intra-abdominal adhesions towards the right upper quadrant and there was a band of adhesion to the right side of the abdomen were a bowel loop likely jejunum was herniated through yet maintained to be viable.That band with the internal herniation represented a transition point, proximal dilation of the bowel was noticed with distal collapse.I was able to take those adhesions down using LigaSure under direct visualization. Following that the patient was placed in T Valenzuela, the omentum was lifted up, given to try to was identified, I was standing at the right side table, the bowel was then all the way to the proximal ileum, then I switched it and went to the other side of the table, the remaining of the bowel were again to the ileocecal junction. There were additional adhesions towards the lower midline that were taken down as well under direct visualization I was able to check on the entire colon didn't show any pathological changes, rest of the viscera looked normal.there was an inadvertent mesenteric tear towards the ileal bowel loops that was sutured with figure of eight 2-0 silk under direct visualization for hemostasis without jeopardizing the blood supply to the small bowel. I was able to be run the bowel again from the ligament of Treitz to the ileocecal junction, there were no abnormalities detected continued to have viable bowel, final laparoscopy showed no injuries or bleeding The supraumbilical fascial defect was closed using #1 PDS sutures under direct visualization using fascial closure device.Gas was allowed to escape all trocars were taken out, Cardoza trocar entrance site was closed by additional interrupted 0 Vicryl under direct visualization. Skin was then closed by 3-0 Vicryl followed by 4-0 subcuticular Monocryl and followed by application of surgical glue. The Naso gastric tube and Coles catheter were taken out at the end of the proce dure. Patient tolerated the procedure well and got extubated, was taken to the recovery area in stable condition Count of instruments and sponges were completed at the end of the procedure I was present for the whole entire procedure
--- NOTE | 2020-08-18 14:14 | PC.NURSE ---
pt back from surgery. fluids running and pt resting.
--- NOTE | 2020-08-18 14:44 | PM.PN ---
Subjective Subjective: Interval history: s/p OR earlier today , underwent Diagnostic laparoscopy with intra-abdominal adhesiolysis , bowel otherwise viable. Post op noted to be hypertensive, If persistent, will use antihypertensives Medications: Reviewed: Yes Vitals/I&O/Wt Last Vital Signs Temp 98.1 F 08/18/20 13:45 Pulse 82 08/18/20 13:45 Resp 17 08/18/20 13:45 BP 176/88 08/18/20 13:45 Pulse Ox 96 08/18/20 13:45 08/17/20 08/18/20 08/18/20 22:59 06:59 14:59 Intake Total 1000 / 1000 952.083 / 952.083 Output Total 800 / 800 1020 / 1020 Balance 1000 / 1000 -800 / 200 -67.917 / -67.917 Weight last 48 hrs Weight 63.503 kg Physical Exam Narrative: EXAM NARRATIVE: GEN: Awake CVS: S1S2 N RS: CTA B/L Abd: not examined as post op Urinary Catheter Management^: Coles: Cath Placed During This Visit: yes, but has since been removed by the nurse Urinary Catheter Date of Insertion: 08/18/20 Urinary Catheter Time of Insertion: 11:30 Date Urinary Catheter Removed: 08/18/20 Time Urinary Catheter Discontinued: 13:20 Data : 08/18/20 05:40 08/18/20 05:40 A&P Assessment and plan (1) Obstructed internal hernia: Status: Acute (2) Partial small bowel obstruction: Status: Acute Additional A&P Information Distal small bowel obstruction s/p Diagnostic laparoscopy with intra-abdominal adhesiolysis POD 0 NGT removed Continue IVF Continue Zosyn Coles catheter has been removed Hypertensive post procedure, may be related to pain, if persistent will add antihypertensives N.p.o. Full code Attestations Medical Necessity Statement*: post op day 0., needs ongoing monitoring, await return of bowel function Coding Level of Care Code Acute Physical Science Teacher for [facility] Fwd Diagnoses Obstructed internal hernia K45.0 Partial small bowel obstruction K56.600
--- NOTE | 2020-08-18 16:51 | PC.NURSE ---
pt urinated. covers and gown was soaked. unable to measure amount.
[2020-08-18] MEDS: labetalol 5 mg/mL SDV 20mL IVP (18:18)
--- NOTE | 2020-08-18 18:43 | ANE.PACU2 ---
Inpatient post-anesthesia follow up: Airway intact: Yes Vital signs: Temperature 98.1 F Pulse Rate [Monito r] 106 Pulse Rate 76 Respiratory Rate 16 Blood Pressure [Ri ght Calf] 152/98 Blood Pressure 176/88 Pulse Oximetry 95 Oxygen Delivery Me thod Room Air Oxygen Flow Rate 8 Fraction of Inspir ed Oxygen Hydration adequate: Yes Nausea and vomiting: No Pain level: 4 Mental status: Baseline
[2020-08-19] VITALS (8 sets, daily range): BP systolic 114–157; BP diastolic 60–80; PULSE 53–76; RESP 14–18; TEMP 36.3–36.9; O2SAT 93–98
[2020-08-19] MEDS: morphine 4 mg/mL SDV 1 mL 2 MG IVP ×6 (00:25→20:04)
[2020-08-19] MEDS: piperacillin-tazobactam 3.375 GM in sodium chloride 0.9% (plus) 50 ML IV ×3 (04:15→20:50)
--- NOTE | 2020-08-19 05:39 | PM.PN ---
Subjective Subjective: Interval history: 5:30 AM patient overall is doing well, no acute events overnight Labs are pending Per nursing report patient had some smears Vitals/I&O/Wt Last Vital Signs Temp 98.3 F 08/19/20 03:49 Pulse 62 08/19/20 03:49 Resp 18 08/19/20 03:49 BP 137/71 08/19/20 03:49 Pulse Ox 93 08/19/20 03:49 08/18/20 08/18/20 08/19/20 14:59 22:59 06:59 Intake Total 952.083 / 952.083 50 / 1002.083 Output Total 1020 / 1020 Balance -67.917 / -67.917 50 / -17.917 Weight last 48 hrs Weight 140 lb Physical Exam Narrative: EXAM NARRATIVE: Patient is conscious alert oriented X3 BMI 19.5 Head and neck examination PERRLA no masses no cervical lymphadenopathy no jaundice Cardiac examination audible S1-S2 no murmurs no gallops no arrhythmias Chest is clear bilateral,abscence of Rhonchi or wheezes,no surgical emphysema Abdomen nontender except slightly at the incision site nondistended soft no organomegaly guarding or rigidity/no signs of peritonitis, mild surgical crepitus towards the right side of the abdomen likely due to laparoscopy and gas insufflation, otherwise incisions are clean dry and intact Extremities no cyanosis no clubbing no edema Urinary Catheter Management^: Coles: Cath Placed During This Visit: yes, but has since been removed by the nurse Urinary Catheter Date of Insertion: 08/18/20 Urinary Catheter Time of Insertion: 11:30 Date Urinary Catheter Removed: 08/18/20 Time Urinary Catheter Discontinued: 13:20 Data : 08/19/20 05:30 08/18/20 05:40 A&P Assessment and plan (1) Partial small bowel obstruction: Patient is status post diagnostic laparoscopy and adhesiolysis with reduction of internal herniation of the small bowel 08/18/2020 . As condition resolved we will start the patient on clear liquid diet slowly Once patient starts passing more gas and having bowel movement can advance as tolerated Assurance and education All questions have been answered and all concerns have been addressed to patient's satisfaction. Status: Acute (2) Obstructed internal hernia: Condition resolved and patient is making appropriate clinical progress Family updated postoperatively yesterday with surgery We will continue to follow on the patient Thank you for consulting general surgery to participate taking care Mr. Britton Status: Acute Attestations Medical Necessity Statement*: Requiring inpatient hospitalization for medical and surgical care Time Spent in Patient Care: (>than 50% of time spent in counselling and/or direct pt care on unit). Coding Level of Care Code Acute Advertising Account Representative for [facility] Fwd Diagnoses Partial small bowel obstruction K56.600 Obstructed internal hernia K45.0
[2020-08-19 05:53] LABS: Hematocrit 38.6 % (42.0-52.0); Hemoglobin 12.5 g/dL (11.7-16.6)
[2020-08-19 06:15] LABS: Anion Gap 12.1 (5-19); Blood Urea Nitrogen 20 mg/dL (8-23); Calcium 8.4 mg/dL (8.5-10.5); Carbon Dioxide 28 mmol/L (22-29); Chloride 106 mmol/L (98-107); Glomerular Filtration Rate 113.5 mL/min (90-130); Glucose 86 mg/dL (65-115); Osmolality Calculated 296 mOsm/kg (285-295); Potassium 4.1 mmol/L (3.5-5.1); Sodium 142 mmol/L (136-145)
--- NOTE | 2020-08-19 09:40 | PC.CHAP ---
Pastoral Care Encounter/Spiritual Assessment Type of Contact [] Declined planer hand visit [] Patient/Family/Request visit [] Outpatient visit [] Follow-up visit [] Physician referral [] Code/Alert [] Routine visit [] Staff referral [] Actively dying [] Patient sleeping [] Family support [] [] Out of room [] Palliative care [] [x] Receiving care in room [] Pre-surgical visit [] Trauma [] Long length of stay [] ICU visit [] Other: Relational/Emotional Strength [] Patient feels connected with others/family/visitors/staff [] Distress [] Loneliness/isolation [] Abandonment Spirituality of Patient [] Person of Patria [] Attends Alevism of their Patria [] Believes in Prayer [] Reads Bible or Anabaptist materials [] There are Spiritual issues to be addressed Grease Buffer Interventions [] Prayer [] Active listening [] Non-anxious presence [] Spiritual/emotional support [] Crisis/trauma care [] Spiritual counseling [] Bereavement support [] Provided bereavement packet [] Provided Bible/devotional materials [] Provided toy/stuffed animal, coloring book to patient or family member [] Provided Communion [] Anointing/[place] [] Salvation [] Completed spiritual assessment [] Other: Impact on Illness or Injury [] Angry [] Fearful [] Anxious [] Often cries [] Exhaustion [] Unable to work [] Unable to attend oriental orthodox [] Unable to walk/stand [] Unable to read [] Unable to drive [] Unable to eat/drink [] Unable to sleep [] Unable to be with family [] Patient intubated [] Other: Summary Time spent with patient
[2020-08-19] MEDS: sodium chloride 0.9% 1,000 ML 125 ML IV ×2 (12:33→20:49)
--- NOTE | 2020-08-19 17:56 | PM.PN ---
Subjective Subjective: Interval history: no acute overnight events, remains stable, started on clears Medications: Reviewed: Yes Vitals/I&O/Wt Last Vital Signs Temp 97.4 F L 08/19/20 12:00 Pulse 76 08/19/20 12:00 Resp 15 08/19/20 12:00 BP 157/80 08/19/20 12:00 Pulse Ox 98 08/19/20 12:00 08/19/20 08/19/20 08/19/20 06:59 14:59 22:59 Intake Total 50 2001.083 220 / 220 Balance 50 .083 220 / 220 Weight last 48 hrs Weight 63.503 kg Physical Exam Narrative: EXAM NARRATIVE: GEN: Awake , no obvious distress CVS: S1S2 N RS: CTA B/L Abd: not examined as post op Urinary Catheter Management^: Coles: Cath Placed During This Visit: yes, but has since been removed by the nurse Urinary Catheter Date of Insertion: 08/18/20 Urinary Catheter Time of Insertion: 11:30 Date Urinary Catheter Removed: 08/18/20 Time Urinary Catheter Discontinued: 13:20 Data : 08/19/20 05:30 08/19/20 05:30 A&P Assessment and plan (1) Obstructed internal hernia: Status: Acute (2) Partial small bowel obstruction: Status: Acute Additional A&P Information Distal small bowel obstruction s/p Diagnostic laparoscopy with intra-abdominal adhesiolysis POD 1 NGT removed Continue IVF Continue Zosyn Coles catheter has been removed started on clears today Hypertensive post procedure, improved today N.p.o. Full code Attestations Medical Necessity Statement*: continued post op monitoring, awaiting bowel function Coding Level of Care Code Acute Lead Pastor for [facility] Fwd Diagnoses Obstructed internal hernia K45.0 Partial small bowel obstruction K56.600
[2020-08-20] VITALS (9 sets, daily range): BP systolic 145–170; BP diastolic 81–92; PULSE 65–75; RESP 14–20; TEMP 36.8–37.5; O2SAT 94–96
[2020-08-20] MEDS: morphine 4 mg/mL SDV 1 mL 2 MG IVP ×4 (01:03→11:24)
[2020-08-20] MEDS: piperacillin-tazobactam 3.375 GM in sodium chloride 0.9% (plus) 50 ML IV ×2 (04:43→11:25)
[2020-08-20] MEDS: sodium chloride 0.9% 1,000 ML 125 ML IV ×2 (04:56→13:18)
--- NOTE | 2020-08-20 06:19 | P.PN_ITS ---
Subjective Subjective: Interval history: Patient overall doing well and had bowel movement, no acute events overnight Vitals/I&O/Wt Last Vital Signs Temp 98.3 F 08/20/20 05:52 Pulse 68 08/20/20 05:52 Resp 18 08/20/20 05:52 BP 151/84 08/20/20 05:52 Pulse Ox 95 08/20/20 05:52 08/19/20 08/19/20 08/20/20 14:59 22:59 06:59 Intake Total 220 / 220 1769 1050 / 3040 Balance 220 / 220 1769 1050 / 3040 Physical Exam Narrative: EXAM NARRATIVE: Patient is conscious alert BMI 19.5 Head and neck examination PERRLA no masses no cervical lymphadenopathy no jaundice Abdomen nontender nondistended soft no organomegaly guarding or rigidity/no signs of peritonitis, incisions are clean dry and intact Unfortunately patient is soaked in urine Extremities no cyanosis no clubbing no edema Urinary Catheter Management^: Coles: Cath Placed During This Visit: yes, but has since been removed by the nurse Urinary Catheter Date of Insertion: 08/18/20 Urinary Catheter Time of Insertion: 11:30 Date Urinary Catheter Removed: 08/18/20 Time Urinary Catheter Discontinued: 13:20 Data : 08/19/20 05:30 08/19/20 05:30 A&P Assessment and plan (1) Partial small bowel obstruction: Patient is status post diagnostic laparoscopy and adhesiolysis with reduction of internal herniation of the small bowel 08/18/2020 . Advance diet as tolerated Well patient continues to tolerate p.o. intake can be discharged Return to surgery office in 2-week Assurance and education All questions have been answered and all concerns have been addressed to patient's satisfaction. Status: Acute (2) Obstructed internal hernia: Condition resolved and patient is making appropriate clinical progress Thank you for consulting general surgery to participate taking care Mr. Britton Status: Acute Attestations Medical Necessity Statement*: Inpatient hospitalization for medical and alexandra gical care Time Spent in Patient Care: (>than 50% of time spent in counselling and/or direct pt care on unit) . Coding Level of Care Code Acute Adult Basic Education Teacher for Santino Stringer Diagnoses Partial small bowel obstruction K56.600 Obstructed internal hernia K45.0
--- NOTE | 2020-08-20 15:07 | P.DS_ITS ---
Discharge Providers Date of Admission: 08/18/20 01:44 Date of Discharge: August 20, 2020 Attending Provider at Admission: Nilesh Briseno MD Attending Provider at Discharge: Chiquita Uriostegui MD Primary Care Provider: Shu Anders MD Diagnoses at Discharge Discharge Diagnosis (1) Partial small bowel obstruction: Status: Acute (2) Obstructed internal hernia: Status: Acute Reason for Visit Reason for Visit: n/v Hospital Course Hospital Course Grady Britton is a 64 year old male who has history of inguinal hernia repair, intellectual disability, was brought into the hospital for chief complaint of emesis, fever and discomfort.Diagnosis in the ER revealed normal hemodynamics, no leukocytosis, normal lactic acid, abdomen is not consistent with any mesenteric ischemia or colitis however CT abdomen revealed small bowel obstruction with hernia. On August 18 he underwent diagnostic laparoscopy with intra-abdominal adhesiolysis with Dr. Woodward. Entire length of the bowel was noted to be viable intraoperatively. He was monitored postoperatively until today, his bowel function has returned, he is passing both flatus and feces and tolerating an oral diet at this present time. He is stable for discharge today. Antibiotics have been discontinued at discharge as no signs of bowel ischemia were noted, patient remains hemodynamically stable and afebrile. Physical Exam Narrative: EXAM NARRATIVE: GEN: Awake , no obvious distress CVS: S1S2 N RS: CTA B/L Abdomen soft nondistended bowel sounds heard laparotomy site noted to be healthy-appearing without any gross signs of cellulitis. Urinary Catheter Management^: Coles: Cath Placed During This Visit: yes, but has since been removed by the nurse Urinary Catheter Date of Insertion: 08/18/20 Urinary Catheter Time of Insertion: 11:30 Date Urinary Catheter Removed: 08/18/20 Time Urinary Catheter Discontinued: 13:20 Discharge Data Data Completed and Pending: Completed Studies During Hospitalization Category Date Time Status CT abdomen pelvis w con* [id number] Urge nt Cat Scan 08/17/20 22:[address] abdomen pelvis wo con [id number] Urge nt Cat Scan 08/17/20 23:44 Completed XR KUB portable 7 [id number] Urgent Exams 08/17/20 20:15 Completed XR chest 1V abraham ble [id number] Routine Exams 08/18/20 02:32 Completed Pathology: Surgic al [PTH] Routine Pth 08/18/20 13:28 Completed Pending at discharge Category Date Time Status ES surgery / GI i mages Routine Exams 08/18/20 08:41 Taken Vitals: Last Vital Signs Temp 99.5 F 08/20/20 11:34 Pulse 74 08/20/20 11:34 Resp 17 08/20/20 11:34 BP 162/92 08/20/20 11:34 Pulse Ox 96 08/20/20 11:34 Discharge Plan Discharge Patient Disposition: Xfer SNF Condition: Stable Prescriptions: Continued polyethylene glycol 3350 17 gram/dose powder 17 gm PO DAILY RF: 0 lovastatin 10 mg tablet 10 mg PO DAILY RF: 0 acetaminophen 325 mg capsule 650 mg PO Q4H PRN (Reason: Pain) RF: 0 Pepto-Bismol Max St 525 mg/15 mL suspension 525 mg PO Q4H PRN (Reason: Indigestion) RF: 0 melatonin 10 mg capsule 10 mg PO BEDTIME PRN (Reason: Insomnia) RF: 0 ibuprofen 100 mg/5 mL suspension 400 mg PO Q6H RF: 0 promethazine-DM 6.25-15 mg/5 mL syrup 5 ml PO Q6H PRN (Reason: to affected area) RF: 0 promethazine 25 mg tablet 25 mg PO Q6H PRN (Reason: Nausea) RF: 0 ondansetron 4 mg tablet,disintegrating 4 mg PO Q6H PRN (Reason: Nausea) RF: 0 lactulose [Constulose] 10 gram/15 mL solution 10 gm PO DAILY PRN (Reason: Constipation) RF: 0 bisacodyl [Dulcolax (bisacodyl)] 10 mg suppository 10 mg AL DAILY PRN (Reason: Constipation) RF: 0 Triple Antibiotic 3.5-400-5,000 [id number] aerosol,spray 1 gm TOPICAL PRN RF: 0 loperamide 2 mg tablet 4 mg PO Q4H PRN (Reason: Diarrhea) RF: 0 Discharge Orders: Discharge Order (Routine); Ordered 08/20/20 Ordered By: Chiquita Uriostegui Referrals: Shu Anders MD [Primary Care Provider] - 08/26/20 11:15 am Mir Siddiqui MD [Physician] - 09/04/20 1:00 pm (Return to surgery office in 2-week) Discharge Diet: Advance as tolerated Discharge Activity: Increase activity as tolerated Patient Instructions: Laparoscopic Bowel Resection (DC) Activity Restrictions/Additional Instructions: 1. Patient can shower after 48 hours from surgery 2. Remove Dermabond 7 to 10 days after surgery, if there is a secondary dressing can take down after 48 hours. 3. Up and walking as tolerated 4. Do lift more than 5 pounds first 2 weeks after surgery and not more than 25 pounds 6 to 8 weeks after surgery. 5. Do not operate heavy machinery or drive while using pain medications. 6.Contact the office or return to the ER for worsening nausea vomiting fevers or chills, or noticing any redness around incision sites or discharge. Discharge Attestations Time Spent in Discharge Care*: greater than 30 min Quality Metrics Clinical Quality Measures During this hospital stay, did patient experience: None Coding Level of Care Code Acute Box Blank Machine Operator Helper for [facility] Fwd Diagnoses Partial small bowel obstruction K56.600 Obstructed internal hernia K45.0
--- NOTE | 2020-08-20 17:37 | PC.NURSE ---
REPORT TO HEBERT'S REPORT CALLED TO TERRY AT [facility]
== END 2020-08-20 17:35 | disposition skilled nursing facility (03) | DRG 336 ==
LOC: ER 08-18 00:19 → MEDSURG 08-18 02:00
PROVIDERS: Emergency Medicine; Surgery; Admitting Provider Internal Medicine; Emergency Provider Emergency Medicine; PCP Internal Medicine; Visit Provider Student in an Organized Health Care Education/Training Program
PROC: 0DN84ZZ Release Small Intestine, Percutaneous Endoscopic Approach (ICD-10-PCS; CPT 49320; principal; 2020-08-18 10:45)
DX: K56.51 Intestinal adhesions [bands], with partial obstruction (principal); K45.0 Other specified abdominal hernia with obstruction, without gangrene; F79 Unspecified intellectual disabilities; I25.10 Atherosclerotic heart disease of native coronary artery without angina pectoris; R97.20 Elevated prostate specific antigen [PSA]; I10 Essential (primary) hypertension; N40.0 Benign prostatic hyperplasia without lower urinary tract symptoms; E11.9 Type 2 diabetes mellitus without complications
CPT/HCPCS: 12345; 36415; 36416; 51702; 71045; 74018; 74176; 74177; 80048; 80053; 81003; 82962; 83605; 83690; 85014; 85018; 85025; 88305; 96372; 99283; J0131; J0330; J0690; J1100; J1644; J2250; J2270; J2405; J2543; J2704; J2710; J3010; J3490; J7030; Q9967

== ENCOUNTER → 2021-02-26 10:44 | Outpatient (BNVA) | payer MEDICARE, MEDICAID, SELFPAY | PROVIDERS: PCP Internal Medicine; Visit Provider Nurse Practitioner Family | DX: Z20.822 Contact with and (suspected) exposure to COVID-19 (principal) | CPT/HCPCS: 87635 ==

== ENCOUNTER 2021-08-16 18:22 | Emergency (ER) | payer MEDICARE, MEDICAID, SELFPAY ==
--- NOTE | 2021-08-16 18:26 | CTR_ITS ---
PROCEDURE INFORMATION: Exam: CT Abdomen And Pelvis With Contrast Exam date and time: 08/16/2021 6:26 PM Age: 65 years old Clinical indication: Abdominal pain; Generalized; Prior surgery; Surgery type: Hernia x 2 , bowel resection; Additional info: Eval for bowel obstruction TECHNIQUE: Imaging protocol: Computed tomography of the abdomen and pelvis with contrast. Radiation optimization: All CT scans at this facility use at least one of these dose optimization techniques: automated exposure control; mA and/or kV adjustment per patient size (includes targeted exams where dose is matched to clinical indication); or iterative reconstruction. Contrast material: VISI 320; Contrast volume: 95 ml; Contrast route: INTRAVENOUS (IV); COMPARISON: CT abdomen pelvis wo con [id number] 08/18/2020 1:24 AM RADIATION DOSE METRICS: Total DLP (mGy-cm): 1245.67 FINDINGS: Liver: Normal. No mass. Gallbladder and bile ducts: Partially contracted gallbladder with probable calculus. The bile ducts are normal. Pancreas: Normal. No ductal dilation. Spleen: Normal. No splenomegaly. Adrenal glands: Normal. No mass. Kidneys and ureters: Normal. No hydronephrosis. Stomach and bowel: Stool scattered stool throughout the colon to the rectum. Partial small bowel resection. The stomach and small bowel are unremarkable. No wall thickening or obstruction. Appendix: The appendix is visualized and is normal. Intraperitoneal space: Unremarkable. No free air. No significant fluid collection. Vasculature: 4.2 cm aneurysmal dilatation of the ascending thoracic aorta. Arterial calcifications. No abdominal aortic aneurysm. Lymph nodes: Unremarkable. No enlarged lymph nodes. Urinary bladder: Mild circumferential wall thickening in the urinary bladder. No focal mass identified. Reproductive: Inhomogenous enlarged prostate with coarse calcifications, and an irregular margin which indents the urinary bladder. Bones/joints: Degenerative changes of the spine. No fracture. Soft tissues: Fat containing bilateral inguinal hernias. CT/CT abdomen pelvis w con* [id number] IMPRESSION: 1. Wall thickening in the urinary bladder, suspicious for cystitis. Clinical correlation recommended. 2. No evidence for bowel obstruction. 3. Inhomogenous prostate with an irregular margin which indents the urinary bladder. A neoplasm in the prostate is not excluded.
[2021-08-16 18:32] VITALS: BP 132/69; PULSE 66; RESP 16; TEMP 36.4; O2SAT 98
--- NOTE | 2021-08-16 18:50 | ED_ITS ---
HPI - General Adult General: Chief complaint: Abdominal Pain Stated complaint: ABD PAIN Time Seen by Provider: 08/16/21 18:26 History of Present Illness: HPI narrative: Patient is a 65-year-old male with history of intellectual disability, prior history of small bowel function presenting to emergency room with complaints of 2 days of right-sided abdominal pain. Patient was seen evaluate today by Dr. Anders clinic called EMS and patient was transferred to the emergency room for further evaluation of right side abdominal pain. Dr. Anders was concerned that the patient has had similar episodes abdominal pain in the past was found to have small bowel obstruction. Rest of history limited by cognitive status. Onset:2 days ago Duration:2 days Location:home Severity:moderate Review of Systems Narrative: Constitutional: No fever, no chills. HEENT: No vision changes CV: No chest pain, no palpitations PULM: no cough, no dyspnea. GI: +R sided abdominal pain, no N/V/D. : No dysuria MSKEL: No muscle pain SKIN: No new rashes, no lesions. NEURO: No headache, no focal weakness. HEME: No visible bruises PSYCH: Normal mood PFSH ED PFSH: Medical History (Updated 08/16/21 @ 20:14 by Nita Morelos MD) Atherosclerosis Bladder wall thickening Elevated PSA Gross hematuria HTN (hypertension) Mental disorder Nonverbal Prostate enlargement Type 2 diabetes mellitus Surgical History Hx of inguinal hernia repair Family History Brother Intellectual disability Social History Smoking and tobacco status: never smoked Alcohol intake: never Adopted: Yes Lives independently: No Housing: Assisted Living Facility Marital status: Single Current occupational status: disabled History of recent travel: No Physical Exam Narrative: EXAM NARRATIVE: Head: Atraumatic Eyes: PERRL, conjunctiva without injection ENT: Mucous membrane moist NECK: Supple, ROM intact LUNGS: LCTAB, no crackles/rhonchi CV: RRR ABDOMEN: Soft, no focal TTP. NO guarding rebound, guarding, rigidity. No CVA tenderness to percussion. Neg Mason/Neg McBurney's point tenderness, no suprabupic tenderness to palpation EXTREMITY: Normal ROM SKIN: No rash or erythema NEURO: Awake and alert, no focal motor deficits PSYCH: Normal mood and affect Course Vital Signs: Vital signs: Vital Signs Temperature 97.5 F L 08/16/21 18:32 Pulse Rate 66 08/16/21 18:32 Respiratory Rate 16 08/16/21 18:32 Blood Pressure 132/69 08/16/21 18:32 Pulse Oximetry 98 08/16/21 18:32 MDM - General Adult MDM Narrative: Medical decision making narrative: 65-year-old male presents emergency room with concerns for right side abdominal pain x2 days. On examination patient is in no focal tenderness palpation. Patient is afebrile, no guarding no rebound tenderness. On reassessment at 8:18 PM, patient was found to have cystitis on CT. No other focal pathologies. WBC of 4.6. patient received first dose of Keflex in the emergency room. Patient also received Maalox and tolerated p.o. without any difficulty. No focal abdominal pain or tenderness on exam currently. No suspicion for other acute intra-abdominal pathology including SBO, biliary pathology, appendicitis, diverticulitis, or other emergent condition requiring surgery. Incidental findings of prostate findings discussed extensively with patient's caregiver Natasha today. Patient received a copy of the CT report with the documented findings. Patient is instructed to follow up urgently with specialists. I have given patient follow up with our manager of case management to be seen by Dr. Dudley for prostate findings. Patient aware of a call from our manager of case management to schedule for appointment(s) and verbalizes understanding of the importance of following up. Rx: cephalexin 500mg BID x 7 days for UTI Disposition: Discharge. Patient's caregiver counseled regarding diagnostic impression, treatment plan. Patient's caregiver given ED strict return precautions to return for continuation, worsening, or development of new symptoms. Instructed to f/u w/ PCP regarding symptoms today. Patient's caregiver verbalized understanding. Lab Data: Labs: Lab Results 08/16/21 08/16/21 19:11 19:11 WBC 4.6 10^3/uL 10^3/ uL (4.0-10.0) RBC 4.13 10^6/uL 10^6 /uL (4.1-5.3) Hgb 13.5 g/dL g/dL (11.7-16.6) Hct 40.3 % L % (42.0-52.0) MCV 97.6 fl H fl (80-94) MCH 32.7 pg pg (28.0-34.0) MCHC 33.5 g/dL g/dL (30.0-36.0) RDW 11.9 % L % (12.1-15.1) Plt Count 164 10^3/cmm 10^3 /cmm (130-400) MPV 10.7 fL H fL (7.4-10.4) Neut % (Auto) 55.8 % % Lymph % (Auto) 34.1 % % [place] % (Auto) 7.4 % % Eos % (Auto) 1.8 % % Baso % (Auto) 0.7 % % Neut # (Auto) 2.55 10^3/uL 10^3 /uL (1.8-7.7) Lymph # (Auto) 1.6 10^3/uL 10^3/ uL (0.8-4.8) [place] # (Auto) 0.3 10^3/uL 10^3/ uL (0.2-0.9) Eos # (Auto) 0.1 10^3/uL 10^3/ uL (0.0-0.8) Baso # (Auto) 0.0 10^3/uL 10^3/ uL (0.0-0.1) Nucleated RBC % (a uto) 0 % % Nucleated RBCs # 0.0 /100WBC /100W BC Sodium 141 mmol/L mmol/L (136-145) Potassium 4.1 mmol/L mmol/L (3.5-5.1) Chloride 104 mmol/L mmol/L (98-107) Carbon Dioxide 26 mmol/L mmol/L (22-29) Anion Gap 15.1 (5-19) BUN 20 mg/dL mg/dL (8-23) Creatinine 0.6 mg/dL L mg/dL (0.7-1.2) GFR Calculation 135.2 mL/min H mL /min (90-130) Glucose 106 mg/dL mg/dL (65-115) Calculated Osmolal ity 295 mOsm/kg mOsm/ kg (285-295) Calcium 8.7 mg/dL mg/dL (8.5-10.5) Total Bilirubin 0.3 mg/dL mg/dL (0.15-1.2) AST 14 U/L U/L (0-40) ALT 14 U/L U/L (0-41) Alkaline Phosphata se 100 IU/L IU/L (40-130) Total Protein 6.2 g/dL L g/dL (6.6-8.7) Albumin 3.7 g/dL g/dL (3.5-5.2) Globulin 2.5 g/dL g/dL (1.3-4.6) Lipase 47 U/L U/L (13-60) Imaging Data^: Other Imaging: Radiologist's impression: [facility] [id number] [place] [id number] Scan ReportSigned Patient: Grady Britton #: [id number]: [id number]#:[id number]/Sex: 65 / MADM Date: 08/16/21Loc: ERRoom/Bed:Attending Dr: Ordering Provider/Ordering MD: Nita Morelos MD Date of Service: 08/16/21 Procedure(s): CT abdomen pelvis w con* [id number] Accession Number(s): [id number] Report Number: [id number] PROCEDURE INFORMATION: Exam: CT Abdomen And Pelvis With Contrast Exam date and time: 08/16/2021 6:26 PM Age: 65 years old Clinical indication: Abdominal pain; Generalized; Prior surgery; Surgery type: Hernia x 2 , bowel resection; Additional info: Eval for bowel obstruction TECHNIQUE: Imaging protocol: Computed tomography of the abdomen and pelvis with contrast. Radiation optimization: All CT scans at this facility use at least one of these dose optimization techniques: automated exposure control; mA and/or kV adjustment per patient size (includes targeted exams where dose is matched to clinical indication); or iterative reconstruction. Contrast material: VISI 320; Contrast volume: 95 ml; Contrast route: INTRAVENOUS (IV); COMPARISON: CT abdomen pelvis wo con [id number] 08/18/2020 1:24 AM RADIATION DOSE METRICS: Total DLP (mGy-cm): 1245.67 FINDINGS: Liver: Normal. No mass. Gallbladder and bile ducts: Partially contracted gallbladder with probable calculus. The bile ducts are normal. Pancreas: Normal. No ductal dilation. Spleen: Normal. No splenomegaly. Adrenal glands: Normal. No mass. Kidneys and ureters: Normal. No hydronephrosis. Stomach and bowel: Stool scattered stool throughout the colon to the rectum. Partial small bowel resection. The stomach and small bowel are unremarkable. No wall thickening or obstruction. Appendix: The appendix is visualized and is normal. Intraperitoneal space: Unremarkable. No free air. No significant fluid collection. Vasculature: 4.2 cm aneurysmal dilatation of the ascending thoracic aorta. Arterial calcifications. No abdominal aortic aneurysm. Lymph nodes: Unremarkable. No enlarged lymph nodes. Urinary bladder: Mild circumferential wall thickening in the urinary bladder. No focal mass identified. Reproductive: Inhomogenous enlarged prostate with coarse calcifications, and an irregular margin which indents the urinary bladder. Bones/joints: Degenerative changes of the spine. No fracture. Soft tissues: Fat containing bilateral inguinal hernias. CT/CT abdomen pelvis w con* [id number] IMPRESSION: 1. Wall thickening in the urinary bladder, suspicious for cystitis. Clinical correlation recommended. 2. No evidence for bowel obstruction. 3. Inhomogenous prostate with an irregular margin which indents the urinary bladder. A neoplasm in the prostate is not excluded. Dictated By:Balbir Paez By:Balbir Paez Date/Time:08/16/212006DD/ 25 Discharge Plan Discharge Patient Disposition: Home Clinical Impression: Abdominal pain, Acute UTI Condition: Stable Prescriptions: New Pepcid 20 mg tablet 20 mg PO BID PRN (Reason: abdominal pain) 10 Days Qty: 20 RF: 0 Maalox Advanced 1,000-60 mg tablet,chewable 1 tab PO TID PRN (Reason: abdominal pain) 7 Days Qty: 21 RF: 0 cephalexin 500 mg capsule 500 mg PO BID 7 Days Qty: 14 RF: 0 No Action polyethylene glycol 3350 17 gram/dose powder 17 gm PO DAILY RF: 0 lovastatin 10 mg tablet 10 mg PO DAILY RF: 0 acetaminophen 325 mg capsule 650 mg PO Q4H PRN (Reason: Pain) RF: 0 Pepto-Bismol Max St 525 mg/15 mL suspension 525 mg PO Q4H PRN (Reason: Indigestion) RF: 0 melatonin 10 mg capsule 10 mg PO BEDTIME PRN (Reason: Insomnia) RF: 0 ibuprofen 100 mg/5 mL suspension 400 mg PO Q6H RF: 0 promethazine-DM 6.25-15 mg/5 mL syrup 5 ml PO Q6H PRN (Reason: to affected area) RF: 0 promethazine 25 mg tablet 25 mg PO Q6H PRN (Reason: Nausea) RF: 0 ondansetron 4 mg tablet,disintegrating 4 mg PO Q6H PRN (Reason: Nausea) RF: 0 lactulose [Constulose] 10 gram/15 mL solution 10 gm PO DAILY PRN (Reason: Constipation) RF: 0 bisacodyl [Dulcolax (bisacodyl)] 10 mg suppository 10 mg AK DAILY PRN (Reason: Constipation) RF: 0 Triple Antibiotic [place] 3.5-400-5,000 [id number] aerosol,spray 1 gm TOPICAL PRN RF: 0 loperamide 2 mg tablet 4 mg PO Q4H PRN (Reason: Diarrhea) RF: 0 Discharge Orders: Discharge ED (Routine); Ordered 08/16/21 Ordered By: Nita Morelos Referrals: Shu Anders MD [Primary Care Provider] - Discharge Diet: Advance as tolerated Discharge Activity: Resume usual activity Patient Instructions: Urinary Tract Infection in Men (ED), Abdominal Pain (ED) Activity Restrictions/Additional Instructions: Please come back if you have any worsening abdominal pain, fever or chills, nausea or vomiting, diarrhea, blood in the stool, inability hold down liquid or solids, or any new concerning complaints. Here's a copy of your CT report. Please follow up on the prostate issue: Our manager of case management will have you follow-up with Urology Dr. Dudley for prostate issues in the next few days. You would be expected to have a phone call with our manager of case management who will put you on the schedule. [address] [id number] Scan ReportSigned Patient: Grady Britton #: [id number]: 6Acct#:[id number]/Sex: 65 / MADM Date: 08/16/21Loc: ERRoom/Bed :Attending Dr: Ordering Provider/Ordering MD: Nita Morelos MD Date of Service: 08/16/21 Procedure(s): CT abdomen pelvis w con* [id number] Accession Number(s): [id number] Report Number: [id number] PROCEDURE INFORMATION: Exam: CT Abdomen And Pelvis With Contrast Exam date and time: 08/16/2021 6:26 PM Age: 65 years old Clinical indication: Abdominal pain; Generalized; Prior surgery; Surgery type: Hernia x 2 , bowel resection; Additional info: Eval for bowel obstruction TECHNIQUE: Imaging protocol: Computed tomography of the abdomen and pelvis with contrast. Radiation optimization: All CT scans at this facility use at least one of these dose optimization techniques: automated exposure control; mA and/or kV adjustment per patient size (includes targeted exams where dose is matched to clinical indication); or iterative reconstruction. Contrast material: VISI 320; Contrast volume: 95 ml; Contrast route: INTRAVENOUS (IV); COMPARISON: CT abdomen pelvis wo con [id number] 08/18/2020 1:24 AM RADIATION DOSE METRICS: Total DLP (mGy-cm): 1245.67 FINDINGS: Liver: Normal. No mass. Gallbladder and bile ducts: Partially contracted gallbladder with probable calculus. The bile ducts are normal. Pancreas: Normal. No ductal dilation. Spleen: Normal. No splenomegaly. Adrenal glands: Normal. No mass. Kidneys and ureters: Normal. No hydronephrosis. Stomach and bowel: Stool scattered stool throughout the colon to the rectum. Partial small bowel resection. The stomach and small bowel are unremarkable. No wall thickening or obstruction. Appendix: The appendix is visualized and is normal. Intraperitoneal space: Unremarkable. No free air. No significant fluid collection. Vasculature: 4.2 cm aneurysmal dilatation of the ascending thoracic aorta. Arterial calcifications. No abdominal aortic aneurysm. Lymph nodes: Unremarkable. No enlarged lymph nodes. Urinary bladder: Mild circumferential wall thickening in the urinary bladder. No focal mass identified. Reproductive: Inhomogenous enlarged prostate with coarse calcifications, and an irregular margin which indents the urinary bladder. Bones/joints: Degenerative changes of the spine. No fracture. Soft tissues: Fat containing bilateral inguinal hernias. CT/CT abdomen pelvis w con* [id number] IMPRESSION: 1. Wall thickening in the urinary bladder, suspicious for cystitis. Clinical correlation recommended. 2. No evidence for bowel obstruction. 3. Inhomogenous prostate with an irregular margin which indents the urinary bladder. A neoplasm in the prostate is not excluded. Dictated By:Balbir Paez By:Balbir Paez Date/Time:08/16/212006DD/ 1826 Coding Level of Care Code ED Sales Representative [employer] [place]
[2021-08-16 19:26] LABS: Basophils % 0.7 %; Eosinophils # 0.1 10^3/uL (0.0-0.8); Eosinophils % 1.8 %; Hematocrit 40.3 % (42.0-52.0); Hemoglobin 13.5 g/dL (11.7-16.6); Lymphocytes # 1.6 10^3/uL (0.8-4.8); Lymphocytes % 34.1 %; Mean Corpuscular HGB Conc 33.5 g/dL (30.0-36.0); Mean Corpuscular Hemoglobin 32.7 pg (28.0-34.0); Mean Corpuscular Volume 97.6 fl (80-94); Mean Platelet Volume 10.7 fL (7.4-10.4); Monocytes # 0.3 10^3/uL (0.2-0.9); Monocytes % 7.4 %; Neutrophils # 2.55 10^3/uL (1.8-7.7); Neutrophils % 55.8 %; Nucleated Red Blood Cells % 0 %; Platelet Count 164 10^3/cmm (130-400); Red Blood Count 4.13 10^6/uL (4.1-5.3); Red Cell Distribution Width 11.9 % (12.1-15.1); White Blood Count 4.6 10^3/uL (4.0-10.0)
[2021-08-16] MEDS: iodixanol 320 mg/mL 100mL Btl IV (19:45)
[2021-08-16 19:48] LABS: Alanine Aminotransferase 14 U/L (0-41); Albumin Level 3.7 g/dL (3.5-5.2); Alkaline Phosphatase 100 IU/L (40-130); Anion Gap 15.1 (5-19); Aspartate Amino Transferase 14 U/L (0-40); Blood Urea Nitrogen 20 mg/dL (8-23); Calcium 8.7 mg/dL (8.5-10.5); Carbon Dioxide 26 mmol/L (22-29); Chloride 104 mmol/L (98-107); Globulin 2.5 g/dL (1.3-4.6); Glomerular Filtration Rate 135.2 mL/min (90-130); Glucose 106 mg/dL (65-115); Lipase 47 U/L (13-60); Osmolality Calculated 295 mOsm/kg (285-295); Potassium 4.1 mmol/L (3.5-5.1); Sodium 141 mmol/L (136-145); Total Bilirubin 0.3 mg/dL (0.15-1.2); Total Protein 6.2 g/dL (6.6-8.7)
[2021-08-16] MEDS: sodium chloride 0.9% 1,000 ML 999 ML IV (19:57)
[2021-08-16] MEDS: famotidine 20 mg/2 mL INJ IVP (19:57)
[2021-08-16] MEDS: cephALEXin 500 mg Capsule PO (21:26)
[2021-08-16] MEDS: alum-mag-hydroxide-sime 30 mL UDC PO (21:26)
[2021-08-16 21:27] VITALS: BP 111/68; PULSE 67; RESP 16; TEMP 36.4; O2SAT 98
[2021-08-16 21:38] LABS: Glucose Urine UA Norm (Normal); Protein Urine Neg (Negative); Specific Gravity, Urine 1.015 (1.005-1.030); Urine Appearance Clear (CLEAR); Urine Color Yellow (Yellow); pH Urine 5 (5-7)
[2021-08-16 21:39] LABS: Add Urine Culture? No; Add Urine Microscopic? YES; Bacteria Urine TRACE /hpf; Bilirubin Urine Neg (Negative); Blood Urine 2+ (Negative); Ketones Urine Negative (Negative); Leukocyte Esterase Urine Negative (Negative); Mucus Urine 1+ /hpf; Nitrate Urine Negative (Negative); Squamous Epithelial Cell Urine 0-4 /hpf (0-5); Urobilinogen Urine Norm (Negative); WBC Urine 0-4 /hpf (0-5)
--- NOTE | 2021-08-19 09:32 | DCPLANNER ---
manager behavior had message to schedule a follow up appointment for patient with Dr. Dudley. manager behavior emailed patients information to Darien Sierra and Julie at the office of Dr. Dudley. Patients information will be printed and reviewed. Clinic will call patient with appointment information.
--- NOTE | 2021-08-20 14:31 | DCPLANNER ---
diabetes clinical manager had message to schedule a follow up appointment for patient with Dr. Anders. Patient has a follow up appointment scheduled for 08.28.21 at 1:[address] Anders. Patient is aware of appointment.
--- NOTE | 2021-08-28 08:42 | DCPLANNER ---
Addendum entered by Sharita Engel 09/12/21 07:35: Patient had a follow up appointment scheduled for 09.05.[address] Dudley - appointment was cancelled. Original Note: Patient has a followup appointment scheduled for Sunday, September 05, 2021 at 9:[address] Dudley. Clinic will contact patient with appointment information.
== END 2021-08-16 21:30 | disposition home or self-care (01) ==
PROVIDERS: Emergency Provider Emergency Medicine; PCP Internal Medicine
DX: N39.0 Urinary tract infection, site not specified (principal); I10 Essential (primary) hypertension; E11.9 Type 2 diabetes mellitus without complications
CPT/HCPCS: 74177; 80053; 81001; 83690; 85025; 96361; 96374; 99284; J3490; J7030; Q9967

== ENCOUNTER → 2021-11-21 07:38 | Outpatient (BNVA) | payer MEDICARE, MEDICAID, SELFPAY | PROVIDERS: PCP Internal Medicine; Visit Provider Urology | DX: R97.20 Elevated prostate specific antigen [PSA] (principal); N40.0 Benign prostatic hyperplasia without lower urinary tract symptoms; R33.9 Retention of urine, unspecified; N32.89 Other specified disorders of bladder; N39.0 Urinary tract infection, site not specified | CPT/HCPCS: 84153 ==

== ENCOUNTER 2021-12-23 14:41 | Outpatient (CLI) | payer MEDICARE, MEDICAID, SELFPAY ==
--- NOTE | 2021-12-23 14:56 | XR_ITS ---
WS: [id number] XR foot LT min 3V* [id number] REASON FOR EXAM: LEFT FOOT PAIN FINDINGS: No fracture or focal bone lesion. No periosteal reaction. Mild narrowing of the joint spaces with mild subchondral sclerosis and small marginal osteophytes in the DIP and PIP joints of the toes. Joint spaces of the midfoot and hindfoot are intact and relatively well-preserved. Moderate anterior plantar enthesophyte from the calcaneus. XR/XR foot LT min 3V* [id number] IMPRESSION: Mild osteoarthritis of the forefoot with no acute abnormality.
== END 2021-12-23 14:42 | disposition home or self-care (01) ==
PROVIDERS: PCP Internal Medicine; Visit Provider Nurse Practitioner Family
DX: M19.072 Primary osteoarthritis, left ankle and foot (principal)
CPT/HCPCS: 73630

== ENCOUNTER → 2022-01-16 09:34 | Outpatient (BNVA) | payer MEDICARE, MEDICAID, SELFPAY | PROVIDERS: PCP Internal Medicine; Visit Provider Urology | DX: N40.0 Benign prostatic hyperplasia without lower urinary tract symptoms (principal); N39.0 Urinary tract infection, site not specified | CPT/HCPCS: 51798; 99213 ==

== ENCOUNTER 2022-08-31 06:54 | Outpatient (CLI) | payer MEDICARE, MEDICAID, SELFPAY ==
--- NOTE | 2022-08-31 07:21 | CT_ITS ---
WS: [id number] CTA THORACIC AORTA WITH AND WITHOUT CONTRAST. 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 After noncontrast imaging is performed, CT angiogram is performed during injection of Omnipaque 350; 95 mL IV.. Sagittal and c oronal reconstructions, sagittal and coronal MIP imaging is submitted. All CT scans at [facility] use at least one of these dose optimization techniques: automated exposure control; mA and/or kV adjustment per patient size (includes targeted exams where dose is matched to clinical indication); or iterative reconstruction. DLP: 586.16 mGy.cm COMPARISON: 04/15/2018 Good enhancement of the thoracic aorta. No aneurysm or dissection. Very mild ectasia and atherosclero tic changes. Maximum transverse diameter of the ascending aorta is 3.7 cm. Origin of the great vessel s partially obscured by contrast injection. Pulmonary artery size is normal. No filling defects in th e proximal pulmonary arteries. New numerous bilateral scattered opacifications and groundglass attenuation throughout all lobes. Mor e focal consolidation at the lung bases, LEFT greater than RIGHT. No focal mass or increasing size of nodules previously described. Lung volumes are decreased due to poor inspiration. No adenopathy. Heart size is mildly enlarged. No pericardial or pleural effusions. Negative chest wall. In the upper abdomen is increased density in the region of the gallbladder. Only a very small portion of the gallbladder was imaged. Suspicious for stones. No adrenal mass. No destr uctive bone lesions. CT/CT angio chest [id number] IMPRESSION: 1. Normal-sized thoracic aorta. No aneurysm or dissection. 2. Mild atherosclerosis aorta. 3. New diffuse bilateral pulmonary opacifications and groundglass attenuation with greater consolidation at the lung bases. Suspect acute multilobar pneumoni tis and possible pneumonia at the LEFT lung base.
[2022-08-31] MEDS: iohexol 350 mg/mL 500 mL Btl (per mL) IV (07:50)
[2022-08-31 08:16] LABS: Blood Urea Nitrogen 29 mg/dL (8-23); Glomerular Filtration Rate 96.7 mL/min (90-130)
== END 2022-08-31 06:55 | disposition home or self-care (01) ==
LOC: RAD 06:57
PROVIDERS: PCP Internal Medicine; Visit Provider Physical Medicine & Rehabilitation
DX: I71.20 Thoracic aortic aneurysm, without rupture, unspecified (principal); I70.0 Atherosclerosis of aorta
CPT/HCPCS: 71275; 82565; 84520; Q9967

== ENCOUNTER 2022-12-07 10:03 | Emergency (ER) | payer MEDICARE, MEDICAID, SELFPAY ==
[2022-12-07 10:06] VITALS: BP 160/112; PULSE 121; RESP 17; TEMP 36.9; O2SAT 93
[2022-12-07 10:49] LABS: Basophils % 0.4 %; Eosinophils % 0.1 %; Hematocrit 44.3 % (42.0-52.0); Hemoglobin 14.6 g/dL (11.7-16.6); Lymphocytes # 0.8 10^3/uL (0.8-4.8); Lymphocytes % 11.7 %; Mean Corpuscular Hemoglobin 32.1 pg (28.0-34.0); Mean Corpuscular Volume 97.4 fl (80-94); Monocytes # 0.5 10^3/uL (0.2-0.9); Monocytes % 7.5 %; Neutrophils # 5.53 10^3/uL (1.8-7.7); Neutrophils % 79.9 %; Nucleated Red Blood Cells % 0 %; Platelet Count 210 10^3/cmm (130-400); Red Blood Count 4.55 10^6/uL (4.1-5.3); White Blood Count 6.9 10^3/uL (4.0-10.0)
--- NOTE | 2022-12-07 10:49 | PC.PHAR ---
pt is from [facility]-pts caregiver states pt had all am meds today
[2022-12-07 11:03] VITALS: BP 142/84
[2022-12-07 11:06] LABS: Add Urine Microscopic? NO; Charge for UA Resulting for Rev
[2022-12-07 11:08] LABS: Alanine Aminotransferase 15 U/L (0-41); Albumin Level 4.3 g/dL (3.5-5.2); Alkaline Phosphatase 103 U/L (40-130); Anion Gap 13.9 (5-19); Aspartate Amino Transferase 17 U/L (0-40); Blood Urea Nitrogen 25 mg/dL (8-23); Calcium 9.2 mg/dL (8.5-10.5); Carbon Dioxide 26 mmol/L (22-29); Chloride 101 mmol/L (98-107); Globulin 3.1 g/dL (1.3-4.6); Glomerular Filtration Rate 112.8 mL/min (90-130); Glucose 135 mg/dL (65-115); Osmolality Calculated 290 mOsm/kg (285-295); Potassium 3.9 mmol/L (3.5-5.1); Sodium 137 mmol/L (136-145); Total Bilirubin 0.4 mg/dL (0.15-1.2); Total Protein 7.4 g/dL (6.6-8.7)
[2022-12-07 11:16] LABS: Acetaminophen < 5.0 ug/mL (10-30); Alcohol Level < 10 mg/dL (0-10); Salicylate < 0.3 mg/dL (3-10)
[2022-12-07 11:16] LABS: Bilirubin Urine Neg (Negative); Blood Urine Neg (Negative); Glucose Urine UA Norm (Normal); Ketones Urine Negative (Negative); Leukocyte Esterase Urine Negative (Negative); Nitrate Urine Negative (Negative); Protein Urine Neg (Negative); Urine Appearance Clear (CLEAR); Urine Color Yellow (Yellow); Urobilinogen Urine Norm (Negative); pH Urine 6 (5-7)
[2022-12-07 11:20] LABS: Amphetamines Screen Urine Negative (Negative); Barbiturates Screen Urine Negative (Negative); Benzodiazepines Screen Urine Negative (Negative); Cocaine Screen Urine Negative (Negative); Opiate Screen Urine Negative (Negative); PCP Screen Urine Negative (Negative); THC Screen Urine Negative (Negative)
--- NOTE | 2022-12-07 11:31 | XR_ITS ---
WS: [id number] Exam: XR chest 1V portable [id number] Date/Time of Exam: 12/07/2022 11:35 AM Reason For Exam: dyspnea/cough Comparison 08/18/2020. The lungs are clear and fully inflated. Normal cardiomediastinal silhouette. Regional bony elements a re intact. Spondylosis of the thoracic and lumbar spine. No pleural effusions. Monitoring leads super impose the chest. XR/XR chest 1V portable [id number] IMPRESSION: 1. No acute cardiopulmonary finding.
--- NOTE | 2022-12-07 11:32 | W.ED.PSYCHS ---
Documented by User: Bobby Rosado DO 12/09/22 08:32 HPI - Psych General: Chief Complaint: Psychiatric Symptoms Stated Complaint: ABNORMAL BEHAVIOR/ HIGH BP Time Seen by Provider: 12/07/22 10:18 Source: patient Mode of arrival: EMS History of Present Illness: 66-year-old male arrives to the emergency room with a caregiver via ambulance. He is in a long term where he is cared for he has not been acting appropriately. He is nonverbal he vocalizes a lot but no identifiable words. They noticed his blood pressure and heart rate were elevated. He seems slightly more agitated. He is not on any new or different medications and not normally on any antihypertensives. No fever sweats or chills reported. He is not able to vocalize at all there is no self-harm reported. Associated psychiatric symptoms: none Review of Systems General: Reports: ROS unobtainable due to medical condition and ROS unobtainable due to mental status [facility] ED PFSH: Medical History Atherosclerosis Bladder wall thickening Elevated PSA Gross hematuria HTN (hypertension) Mental disorder Nonverbal Prostate enlargement Type 2 diabetes mellitus Surgical History Hx of inguinal hernia repair Family History Brother Intellectual disability Father , UNKNOWN AGE AND CAUSE No problems noted. Mother , UNKNOWN AGE AND CAUSE No problems noted. Social History Smoking and tobacco status: never smoked Alcohol intake: never Substance/Drug Use: never Caregiver/support person: Yes Lives independently: No Housing: Other Details: Fdc Marital status: Single Current occupational status: disabled Physical Exam Const: ORIENTATION/CONSCIOUSNESS: Yes awake HENMT: COMMON NORMALS: normocephalic, atraumatic and hearing grossly normal bilaterally HEAD & SCALP: normocephalic and atraumatic Resp: COMMON NORMALS: normal respiratory effort, No retractions, No use of accessory muscles and clear to auscultation bilaterally AUSCULTATION: clear to auscultation bilaterally Cardio: COMMON NORMALS: regular rhythm and No murmurs present (Cardio) RATE: tachycardic RHYTHM: regular rhythm GI: COMMON NORMALS: Soft to palpation and No hepatosplenomegaly present AUSCULTATION: Yes normoactive bowel sounds PALPATION: Yes Soft to palpation, No Tenderness to palpation present (GI), No Guarding due to palpation present (GI) and Yes No hepatosplenomegaly present Extremity: COMMON NORMALS: normal to inspection, capillary refill normal, no clubbing, cyanosis or edema, no calf tenderness and no pedal edema Skin: COMMON NORMALS: no rashes or lesions noted GENERAL SKIN EXAM: no rashes or lesions noted Course Vital Signs: Vital signs: Vital Signs Temperature 98.5 F 12/07/22 10:06 Pulse Rate 76 12/07/22 13:53 Respiratory Rate 18 12/07/22 13:53 Blood Pressure 123/84 12/07/22 13:53 Pulse Oximetry 95 12/07/22 13:53 Oxygen Delivery Me thod Room Air 12/07/22 13:[address] [facility] - Psych Medical Decision Making Care signed out to Dr. Baird at change of shift. See final notes for diagnosis and disposition. 66-year-old male checked out to me at by the previous physician at shift change. This gentleman had been more agitated today. He also has an increased heart rate. He is given oral metoprolol and 15 mg of Zyprexa Zydis here. We will keep him on the metoprolol for heart rate elevation. His CBC is normal. His BMP is not remarkable. Urinalysis is negative. Urine drug screen is negative. Ethyl alcohol is negative. They are encouraged to follow-up with primary care physician. He was slightly hypertensive as well. Further outpatient work-up may be needed Lab Data 12/07/22 10:34 12/07/22 10:34 Radiology Impressions Chest X-Ray 12/07/22 11:31 IMPRESSION: 1. No acute cardiopulmonary finding. Laboratory Results WBC 6.9 10^3/uL (4.0-10.0) 12/07/22 10:34 RBC 4.55 10^6/uL (4.1-5.3) 12/07/22 10:34 Hgb 14.6 g/dL (11.7-16.6) 12/07/22 10:34 Hct 44.3 % (42.0-52.0) 12/07/22 10:34 MCV 97.4 fl (80-94) H 12/07/22 10:34 MCH 32.1 pg (28.0-34.0) 12/07/22 10:34 MCHC 33.0 g/dL (30.0-36.0) 12/07/22 10:34 RDW 12.0 % (12.1-15.1) L 12/07/22 10:34 Plt Count 210 10^3/cmm (130-400) 12/07/22 10:34 MPV 10.0 fL (7.4-10.4) 12/07/22 10:34 Neut % (Auto) 79.9 % 12/07/22 10:34 Lymph % (Auto) 11.7 % 12/07/22 10:34 [place] % (Auto) 7.5 % 12/07/22 10:34 Eos % (Auto) 0.1 % 12/07/22 10:34 Baso % (Auto) 0.4 % 12/07/22 10:34 Neut # (Auto) 5.53 10^3/uL (1.8-7.7) 12/07/22 10:34 Lymph # (Auto) 0.8 10^3/uL (0.8-4.8) 12/07/22 10:34 [place] # (Auto) 0.5 10^3/uL (0.2-0.9) 12/07/22 10:34 Eos # (Auto) 0.0 10^3/uL (0.0-0.8) 12/07/22 10:34 Baso # (Auto) 0.0 10^3/uL (0.0-0.1) 12/07/22 10:34 Nucleated RBC % (auto) 0 % 12/07/22 10:34 Nucleated RBCs # 0.0 /100WBC 12/07/22 10:34 Sodium 137 mmol/L (136-145) 12/07/22 10:34 Potassium 3.9 mmol/L (3.5-5.1) 12/07/22 10:34 Chloride 101 mmol/L (98-107) 12/07/22 10:34 Carbon Dioxide 26 mmol/L (22-29) 12/07/22 10:34 Anion Gap 13.9 (5-19) 12/07/22 10:34 BUN 25 mg/dL (8-23) H 12/07/22 10:34 Creatinine 0.7 mg/dL (0.7-1.2) 12/07/22 10:34 GFR Calculation 112.8 mL/min (90-130) 12/07/22 10:34 Glucose 135 mg/dL (65-115) H 12/07/22 10:34 Calculated Osmolality 290 mOsm/kg (285-295) 12/07/22 10:34 Calcium 9.2 mg/dL (8.5-10.5) 12/07/22 10:34 Total Bilirubin 0.4 mg/dL (0.15-1.2) 12/07/22 10:34 AST 17 U/L (0-40) 12/07/22 10:34 ALT 15 U/L (0-41) 12/07/22 10:34 Alkaline Phosphatase 103 U/L (40-130) 12/07/22 10:34 Total Protein 7.4 g/dL (6.6-8.7) 12/07/22 10:34 Albumin 4.3 g/dL (3.5-5.2) 12/07/22 10:34 Globulin 3.1 g/dL (1.3-4.6) 12/07/22 10:34 Urine Color Yellow (Yellow) 12/07/22 10:58 Urine Appearance Clear (CLEAR) 12/07/22 10:58 Urine pH 6 (5-7) 12/07/22 10:58 Ur Specific [place] 1.020 (1.005-1.030) 12/07/22 10:58 Urine Protein Neg (Negative) 12/07/22 10:58 Urine Glucose (UA) Norm (Normal) 12/07/22 10:58 Urine Ketones Negative (Negative) 12/07/22 10:58 Urine Blood Neg (Negative) 12/07/22 10:58 Urine Nitrate Negative (Negative) 12/07/22 10:58 Urine Bilirubin Neg (Negative) 12/07/22 10:58 Urine Urobilinogen Norm mg/dL (Negative) 12/07/22 10:58 Ur Leukocyte Esterase Negative (Negative) 12/07/22 10:58 Salicylates < 0.3 mg/dL (3-10) L 12/07/22 10:34 Urine Opiates Screen Negative ng/mL (Negative) 12/07/22 10:58 Acetaminophen < 5.0 ug/mL (10-30) L 12/07/22 10:34 Ur Barbiturates Screen Negative ng/mL (Negative) 12/07/22 10:58 Ur Phencyclidine Scrn Negative ng/mL (Negative) 12/07/22 10:58 Ur Amphetamines Screen Negative ng/mL (Negative) 12/07/22 10:58 U Benzodiazepines Scrn Negative ng/mL (Negative) 12/07/22 10:58 Urine Cocaine Screen Negative ng/mL (Negative) 12/07/22 10:58 U Marijuana (THC) Screen Negative ng/mL (Negative) 12/07/22 10:58 Ethyl Alcohol < 10 mg/dL (0-10) 12/07/22 10:34 Discharge Plan Discharge Patient Disposition: Home Clinical Impression: Sinus tachycardia, Agitation Condition: Stable Prescriptions: New metoprolol tartrate 25 mg tablet 25 mg PO BID Qty: 60 0RF No Action polyethylene glycol 3350 17 gram/dose powder 17 gm PO DAILY@08 Rx Instructions: hold 2 days if diarrhea ocurs lovastatin 10 mg tablet 10 mg PO BEDTIME@20 acetaminophen 325 mg capsule 650 mg PO Q4H MDD 6 doses PRN (Reason: Pain) Pepto-Bismol Max St 525 mg/15 mL suspension 1,050 mg PO Q4H MDD 6 doses PRN (Reason: upset stomach) melatonin 10 mg capsule 10 mg PO BEDTIME PRN (Reason: Insomnia) ibuprofen 100 mg/5 mL suspension 400 mg PO Q8H MDD 3 doses PRN (Reason: Pain) promethazine-DM 6.25-15 mg/5 mL syrup 5 ml PO Q6H MDD 4 doses PRN (Reason: Cough) promethazine 25 mg tablet 25 mg PO Q6H MDD 4 doses PRN (Reason: Nausea) lactulose [Constulose] 10 gram/15 mL solution 10 gm PO DAILY PRN (Reason: Constipation) bisacodyl [Dulcolax (bisacodyl)] 10 mg suppository 10 mg PA DAILY PRN (Reason: Constipation) Rx Instructions: for no bm x4 days loperamide 2 mg tablet See Rx Instructions .ROUTE .COMPLEX Rx Instructions: 4mg (2 caps) po after 1st loose stool then one cap after each loose stool thereafter -max of 4 caps in 24 hours simethicone [Gas Relief (simethicone)] 125 mg capsule 125 mg PO Q6H MDD 4 doses PRN (Reason: unknown) Tussin DM 10-100 mg/5 mL Liquid 10 ml PO Q4H MDD 6 doses PRN (Reason: Cough) ondansetron HCl 4 mg tablet 4 mg PO Q6H MDD 4 doses PRN (Reason: Nausea And Vomiting) Flonase 50 mcg/actuation [place],Suspension 2 spray INTRANASAL DAILY@20 Rx Instructions: administer into each nostril finasteride 5 mg tablet 5 mg PO BEDTIME@20 Triple Antibiotic 3.5mg-400 unit- 5,000 unit/gram Ointment See Rx Instructions .ROUTE .COMPLEX Rx Instructions: apply topically to affected area q12h prn cuts/abrasions Vitamin C 1,000 mg tablet 1,000 mg PO BID@08,20 Rx Instructions: TAKE WITH EACH DOSE OF METHENAMINE methenamine hippurate 1 gram tablet 1 g PO BID@08,20 Rx Instructions: for recurrent uti. take with 1000 MG of vitamin c at each dose tamsulosin 0.4 mg capsule 0.4 mg PO BID@08,20 Discharge Orders: Discharge ED (Routine); Ordered 12/07/22 Ordered By: Davy Baird Referrals: Shu Anders MD [Primary Care Provider] - Patient Instructions: Tachycardia (ED) Activity Restrictions/Additional Instructions: Examination and laboratory did not reveal a cause of increased heart rate or agitation today. We will treat the increased heart rate with medication. If possible monitor blood pressure and heart rate twice daily. Call your doctor for a follow-up appointment this week. Further outpatient work-up may be needed. Return for any increase in agitation or aggressive behavior, any other concerning symptoms. Coding Level of Care Code ED Custodial Maintenance Worker for Chg Fwd Documented by User: Davy Baird DO 12/07/22 22:37 HPI - Psych General: Chief Complaint: Psychiatric Symptoms Stated Complaint: ABNORMAL BEHAVIOR/ HIGH BP Time Seen by Provider: 12/07/22 10:18 [facility] ED PFSH: Medical History Atherosclerosis Bladder wall thickening Elevated PSA Gross hematuria HTN (hypertension) Mental disorder Nonverbal Prostate enlargement Type 2 diabetes mellitus Surgical History Hx of inguinal hernia repair Family History Brother Intellectual disability Father , UNKNOWN AGE AND CAUSE No problems noted. Mother , UNKNOWN AGE AND CAUSE No problems noted. Social History Smoking and tobacco status: never smoked Alcohol intake: never Substance/Drug Use: never Caregiver/support person: Yes Lives independently: No Housing: Other Details: Fdc Marital status: Single Current occupational status: disabled Course Vital Signs: Vital signs: Vital Signs Temperature 98.5 F 12/07/22 10:06 Pulse Rate 76 12/07/22 13:53 Respiratory Rate 18 12/07/22 13:53 Blood Pressure 123/84 12/07/22 13:53 Pulse Oximetry 95 12/07/22 13:53 Oxygen Delivery Me thod Room Air 12/07/22 13:53 MDM - Psych Medical Decision Making 66-year-old male checked out to me at by the previous physician at shift change. This gentleman had been more agitated today. He also has an increased heart rate. He is given oral metoprolol and 15 mg of Zyprexa Zydis here. We will keep him on the metoprolol for heart rate elevation. His CBC is normal. His BMP is not remarkable. Urinalysis is negative. Urine drug screen is negative. Ethyl alcohol is negative. They are encouraged to follow-up with primary care physician. He was slightly hypertensive as well. Further outpatient work-up may be needed Lab Data 12/07/22 10:34 12/07/22 10:34 Radiology Impressions Chest X-Ray 12/07/22 11:31 IMPRESSION: 1. No acute cardiopulmonary finding. Laboratory Results WBC 6.9 10^3/uL (4.0-10.0) 12/07/22 10:34 RBC 4.55 10^6/uL (4.1-5.3) 12/07/22 10:34 Hgb 14.6 g/dL (11.7-16.6) 12/07/22 10:34 Hct 44.3 % (42.0-52.0) 12/07/22 10:34 MCV 97.4 fl (80-94) H 12/07/22 10:34 MCH 32.1 pg (28.0-34.0) 12/07/22 10:34 MCHC 33.0 g/dL (30.0-36.0) 12/07/22 10:34 RDW 12.0 % (12.1-15.1) L 12/07/22 10:34 Plt Count 210 10^3/cmm (130-400) 12/07/22 10:34 MPV 10.0 fL (7.4-10.4) 12/07/22 10:34 Neut % (Auto) 79.9 % 12/07/22 10:34 Lymph % (Auto) 11.7 % 12/07/22 10:34 [place] % (Auto) 7.5 % 12/07/22 10:34 Eos % (Auto) 0.1 % 12/07/22 10:34 Baso % (Auto) 0.4 % 12/07/22 10:34 Neut # (Auto) 5.53 10^3/uL (1.8-7.7) 12/07/22 10:34 Lymph # (Auto) 0.8 10^3/uL (0.8-4.8) 12/07/22 10:34 [place] # (Auto) 0.5 10^3/uL (0.2-0.9) 12/07/22 10:34 Eos # (Auto) 0.0 10^3/uL (0.0-0.8) 12/07/22 10:34 Baso # (Auto) 0.0 10^3/uL (0.0-0.1) 12/07/22 10:34 Nucleated RBC % (auto) 0 % 12/07/22 10:34 Nucleated RBCs # 0.0 /100WBC 12/07/22 10:34 Sodium 137 mmol/L (136-145) 12/07/22 10:34 Potassium 3.9 mmol/L (3.5-5.1) 12/07/22 10:34 Chloride 101 mmol/L (98-107) 12/07/22 10:34 Carbon Dioxide 26 mmol/L (22-29) 12/07/22 10:34 Anion Gap 13.9 (5-19) 12/07/22 10:34 BUN 25 mg/dL (8-23) H 12/07/22 10:34 Creatinine 0.7 mg/dL (0.7-1.2) 12/07/22 10:34 GFR Calculation 112.8 mL/min (90-130) 12/07/22 10:34 Glucose 135 mg/dL (65-115) H 12/07/22 10:34 Calculated Osmolality 290 mOsm/kg (285-295) 12/07/22 10:34 Calcium 9.2 mg/dL (8.5-10.5) 12/07/22 10:34 Total Bilirubin 0.4 mg/dL (0.15-1.2) 12/07/22 10:34 AST 17 U/L (0-40) 12/07/22 10:34 ALT 15 U/L (0-41) 12/07/22 10:34 Alkaline Phosphatase 103 U/L (40-130) 12/07/22 10:34 Total Protein 7.4 g/dL (6.6-8.7) 12/07/22 10:34 Albumin 4.3 g/dL (3.5-5.2) 12/07/22 10:34 Globulin 3.1 g/dL (1.3-4.6) 12/07/22 10:34 Urine Color Yellow (Yellow) 12/07/22 10:58 Urine Appearance Clear (CLEAR) 12/07/22 10:58 Urine pH 6 (5-7) 12/07/22 10:58 Ur Specific [place] 1.020 (1.005-1.030) 12/07/22 10:58 Urine Protein Neg (Negative) 12/07/22 10:58 Urine Glucose (UA) Norm (Normal) 12/07/22 10:58 Urine Ketones Negative (Negative) 12/07/22 10:58 Urine Blood Neg (Negative) 12/07/22 10:58 Urine Nitrate Negative (Negative) 12/07/22 10:58 Urine Bilirubin Neg (Negative) 12/07/22 10:58 Urine Urobilinogen Norm mg/dL (Negative) 12/07/22 10:58 Ur Leukocyte Esterase Negative (Negative) 12/07/22 10:58 Salicylates < 0.3 mg/dL (3-10) L 12/07/22 10:34 Urine Opiates Screen Negative ng/mL (Negative) 12/07/22 10:58 Acetaminophen < 5.0 ug/mL (10-30) L 12/07/22 10:34 Ur Barbiturates Screen Negative ng/mL (Negative) 12/07/22 10:58 Ur Phencyclidine Scrn Negative ng/mL (Negative) 12/07/22 10:58 Ur Amphetamines Screen Negative ng/mL (Negative) 12/07/22 10:58 U Benzodiazepines Scrn Negative ng/mL (Negative) 12/07/22 10:58 Urine Cocaine Screen Negative ng/mL (Negative) 12/07/22 10:58 U Marijuana (THC) Screen Negative ng/mL (Negative) 12/07/22 10:58 Ethyl Alcohol < 10 mg/dL (0-10) 12/07/22 10:34 Discharge Plan Discharge Patient Disposition: Home Clinical Impression: Sinus tachycardia, Agitation Condition: Stable Prescriptions: New metoprolol tartrate 25 mg tablet 25 mg PO BID Qty: 60 0RF No Action polyethylene glycol 3350 17 gram/dose powder 17 gm PO DAILY@08 Rx Instructions: hold 2 days if diarrhea ocurs lovastatin 10 mg tablet 10 mg PO BEDTIME@20 acetaminophen 325 mg capsule 650 mg PO Q4H MDD 6 doses PRN (Reason: Pain) Pepto-Bismol Max St 525 mg/15 mL suspension 1,050 mg PO Q4H MDD 6 doses PRN (Reason: upset stomach) melatonin 10 mg capsule 10 mg PO BEDTIME PRN (Reason: Insomnia) ibuprofen 100 mg/5 mL suspension 400 mg PO Q8H MDD 3 doses PRN (Reason: Pain) promethazine-DM 6.25-15 mg/5 mL syrup 5 ml PO Q6H MDD 4 doses PRN (Reason: Cough) promethazine 25 mg tablet 25 mg PO Q6H MDD 4 doses PRN (Reason: Nausea) lactulose [Constulose] 10 gram/15 mL solution 10 gm PO DAILY PRN (Reason: Constipation) bisacodyl [Dulcolax (bisacodyl)] 10 mg suppository 10 mg PA DAILY PRN (Reason: Constipation) Rx Instructions: for no bm x4 days loperamide 2 mg tablet See Rx Instructions .ROUTE .COMPLEX Rx Instructions: 4mg (2 caps) po after 1st loose stool then one cap after each loose stool thereafter -max of 4 caps in 24 hours simethicone [Gas Relief (simethicone)] 125 mg capsule 125 mg PO Q6H MDD 4 doses PRN (Reason: unknown) Tussin DM 10-100 mg/5 mL Liquid 10 ml PO Q4H MDD 6 doses PRN (Reason: Cough) ondansetron HCl 4 mg tablet 4 mg PO Q6H MDD 4 doses PRN (Reason: Nausea And Vomiting) Flonase 50 mcg/actuation [place],Suspension 2 spray INTRANASAL DAILY@20 Rx Instructions: administer into each nostril finasteride 5 mg tablet 5 mg PO BEDTIME@20 Triple Antibiotic 3.5mg-400 unit- 5,000 unit/gram Ointment See Rx Instructions .ROUTE .COMPLEX Rx Instructions: apply topically to affected area q12h prn cuts/abrasions Vitamin C 1,000 mg tablet 1,000 mg PO BID@08,20 Rx Instructions: TAKE WITH EACH DOSE OF METHENAMINE methenamine hippurate 1 gram tablet 1 g PO BID@08,20 Rx Instructions: for recurrent uti. take with 1000 MG of vitamin c at each dose tamsulosin 0.4 mg capsule 0.4 mg PO BID@08,20 Discharge Orders: Discharge ED (Routine); Ordered 12/07/22 Ordered By: Davy Baird Referrals: Shu Anders MD [Primary Care Provider] - Patient Instructions: Tachycardia (ED) Activity Restrictions/Additional Instructions: Examination and laboratory did not reveal a cause of increased heart rate or agitation today. We will treat the increased heart rate with medication. If possible monitor blood pressure and heart rate twice daily. Call your doctor for a follow-up appointment this week. Further outpatient work-up may be needed. Return for any increase in agitation or aggressive behavior, any other concerning symptoms. Coding Level of Care Code ED Custodial Maintenance Worker for Santino Stringer
[2022-12-07] MEDS: OLANZapine 10 mg ODT 15 MG PO (12:54)
[2022-12-07] MEDS: metoprolol tartrate 25 mg Tablet PO (12:56)
[2022-12-07 13:53] VITALS: BP 123/84; PULSE 76; RESP 18; O2SAT 95
== END 2022-12-07 13:54 | disposition home or self-care (01) ==
PROVIDERS: Family Medicine; Emergency Provider Emergency Medicine; PCP Internal Medicine
DX: R00.0 Tachycardia, unspecified (principal); R45.1 Restlessness and agitation; I25.10 Atherosclerotic heart disease of native coronary artery without angina pectoris; I10 Essential (primary) hypertension; E11.9 Type 2 diabetes mellitus without complications
CPT/HCPCS: 36415; 71045; 80053; 80306; 80307; 81003; 85025; 93005; 99284

== ENCOUNTER 2022-12-07 17:55 | Emergency (ER) | payer MEDICARE, MEDICAID, SELFPAY ==
[2022-12-07 18:00] VITALS: BP 161/82; PULSE 70; RESP 16; TEMP 36; O2SAT 97
--- NOTE | 2022-12-07 18:03 | ECG_ITS ---
[facility] Test Date: 2022-12-07 Pat Name: Grady Britton Department: Room: Gender: Male Pot [employer]: : 1955 Requested By: Edvin Rosales Order Number: [id number] Sarahi MD: Gurpreet Raines M.D. Measurements Intervals [place] Rate: 64 P: -8 [place]: 167 QRS: -20 QRSD: 93 T: -18 QT: 400 QTc: 413 Interpretive Statements SINUS RHYTHM VOLTAGE CRITERIA FOR LVH [MEETS CRITERIA IN ONE OF: R(aVL), S(V1), R(V5), R(V5/V6)+S(V1)] Compared to ECG 12/07/2022 12:14:31 Left ventricular hypertrophy now present Electronically Signed On 12-08-2022 10:11:14 CDT by Gurpreet Raines M.D. [email or web address]
--- NOTE | 2022-12-07 18:27 | ED_ITS ---
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 Review of Systems General: Reports: ROS unobtainable due to mental status PFS ED PFSH: Medical History Atherosclerosis Bladder wall thickening Elevated PSA Gross hematuria HTN (hypertension) Mental disorder Nonverbal Prostate enlargement Type 2 diabetes mellitus Surgical History Hx of inguinal hernia repair Family History Brother Intellectual disability Father , UNKNOWN AGE AND CAUSE No problems noted. Mother , UNKNOWN AGE AND CAUSE No problems noted. Social History Smoking and tobacco status: never smoked Alcohol intake: never Substance/Drug Use: never Caregiver/support person: Yes Lives independently: No Housing: Other Details: Skilled Nursing Marital status: Single Current occupational status: disabled Course Vital Signs: Vital signs: Vital Signs Temperature 96.8 F L 12/07/22 18:00 Pulse Rate 70 12/07/22 18:00 Respiratory Rate 16 12/07/22 18:00 Blood Pressure 161/82 12/07/22 18:00 Pulse Oximetry 97 12/07/22 18:00 Oxygen Delivery Me thod Room Air 12/07/22 18:00 MDM - Syncope Medical Decision Making Patient presents here with a possible syncopal event per EMS retirement had 1 hypotensive reading his blood pressures with EMS and here have all been normal his blood works normal he is at his baseline he has no signs of head injury he is stable for discharge he is to follow-up with PCP and return if worsening. Lab Data 12/07/22 19:24 12/07/22 19: Laboratory Results WBC 11.8 10^3/uL (4.0-10.0) H 12/07/22 19:24 RBC 4.12 10^6/uL (4.1-5.3) 12/07/22 19: Hgb 13.4 g/dL (11.7-16.6) 12/07/22 19: Hct 41.2 % (42.0-52.0) L 12/07/22 19: MCV 100.0 fl (80-94) H 12/07/22 19: MCH 32.5 pg (28.0-34.0) 12/07/22 19: MCHC 32.5 g/dL (30.0-36.0) 12/07/22: RDW 12.2 % (12.1-15.1) 12/07/22: Plt Count 203 10^3/cmm (130-400) 12/07/22 19: MPV 10.2 fL (7.4-10.4) 12/07/22: Neut % (Auto) 87.7 % 12/07/22: Lymph % (Auto) 7.2 % 12/07/22 19: [place] % (Auto) 4.2 % 12/07/22 19: Eos % (Auto) 0.2 % 12/07/22: Baso % (Auto) 0.4 % 12/07/22: Neut # (Auto) 10.32 10^3/uL (1.8-7.7) H 12/07/22 19: Lymph # (Auto) 0.9 10^3/uL (0.8-4.8) 12/07/22: [place] # (Auto) 0.5 10^3/uL (0.2-0.9) 12/07/22 19: Eos # (Auto) 0.0 10^3/uL (0.0-0.8) 12/07/22 19: Baso # (Auto) 0.1 10^3/uL (0.0-0.1) 12/07/22 19:24 Nucleated RBC % (auto) 0 % 12/07/22 19:24 Nucleated RBCs # 0.0 /100WBC 12/07/22 19:24 Sodium 137 mmol/L (136-145) 12/07/22 19:24 Chloride 103 mmol/L (98-107) 12/07/22 19:24 Carbon Dioxide 26 mmol/L (22-29) 12/07/22 19:24 Creatinine 0.7 mg/dL (0.7-1.2) 12/07/22 19:24 GFR Calculation 112.8 mL/min (90-130) 12/07/22 19:24 Glucose 113 mg/dL (65-115) 12/07/22 19:24 Calculated Osmolality 289 mOsm/kg (285-295) 12/07/22 19:24 Calcium 8.7 mg/dL (8.5-10.5) 12/07/22 19:24 Total Bilirubin 0.4 mg/dL (0.15-1.2) 12/07/22 19:24 AST 18 U/L (0-40) 12/07/22 19:24 ALT 15 U/L (0-41) 12/07/22 19:24 Alkaline Phosphatase 96 U/L (40-130) 12/07/22 19:24 Total Protein 6.8 g/dL (6.6-8.7) 12/07/22 19:24 Albumin 4.0 g/dL (3.5-5.2) 12/07/22 19:24 Globulin 2.8 g/dL (1.3-4.6) 12/07/22 19:24 EKG Data EKG 1: I personally reviewed and interpreted this EKG as follows: EKG interpretation date: 12/07/22 EKG interpretation time: 18:45 Interpretation: nsr hr [address] or t wave abnormalities qrs 93 qtc 409 Discharge Plan Discharge Patient Disposition: Home Clinical Impression: Hypotension Condition: Stable Prescriptions: No Action polyethylene glycol 3350 17 gram/dose powder 17 gm PO DAILY@08 Rx Instructions: hold 2 days if diarrhea ocurs lovastatin 10 mg tablet 10 mg PO BEDTIME@20 acetaminophen 325 mg capsule 650 mg PO Q4H MDD 6 doses PRN (Reason: Pain) Pepto-Bismol Max St 525 mg/15 mL suspension 1,050 mg PO Q4H MDD 6 doses PRN (Reason: upset stomach) melatonin 10 mg capsule 10 mg PO BEDTIME PRN (Reason: Insomnia) ibuprofen 100 mg/5 mL suspension 400 mg PO Q8H MDD 3 doses PRN (Reason: Pain) promethazine-DM 6.25-15 mg/5 mL syrup 5 ml PO Q6H MDD 4 doses PRN (Reason: Cough) promethazine 25 mg tablet 25 mg PO Q6H MDD 4 doses PRN (Reason: Nausea) lactulose [Constulose] 10 gram/15 mL solution 10 gm PO DAILY PRN (Reason: Constipation) bisacodyl [Dulcolax (bisacodyl)] 10 mg suppository 10 mg VT DAILY PRN (Reason: Constipation) Rx Instructions: for no bm x4 days loperamide 2 mg tablet See Rx Instructions .ROUTE .COMPLEX Rx Instructions: 4mg (2 caps) po after 1st loose stool then one cap after each loose stool thereafter -max of 4 caps in 24 hours simethicone [Gas Relief (simethicone)] 125 mg capsule 125 mg PO Q6H MDD 4 doses PRN (Reason: unknown) Tussin DM 10-100 mg/5 mL Liquid 10 ml PO Q4H MDD 6 doses PRN (Reason: Cough) ondansetron HCl 4 mg tablet 4 mg PO Q6H MDD 4 doses PRN (Reason: Nausea And Vomiting) Flonase 50 mcg/actuation [place],Suspension 2 spray INTRANASAL DAILY@20 Rx Instructions: administer into each nostril finasteride 5 mg tablet 5 mg PO BEDTIME@20 Triple Antibiotic 3.5mg-400 unit- 5,000 unit/gram Ointment See Rx Instructions .ROUTE .COMPLEX Rx Instructions: apply topically to affected area q12h prn cuts/abrasions Vitamin C 1,000 mg tablet 1,000 mg PO BID@08,20 Rx Instructions: TAKE WITH EACH DOSE OF METHENAMINE methenamine hippurate 1 gram tablet 1 g PO BID@08,20 Rx Instructions: for recurrent uti. 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
[2022-12-07 19:41] LABS: Basophils # 0.1 10^3/uL (0.0-0.1); Basophils % 0.4 %; Eosinophils % 0.2 %; Hematocrit 41.2 % (42.0-52.0); Hemoglobin 13.4 g/dL (11.7-16.6); Lymphocytes # 0.9 10^3/uL (0.8-4.8); Lymphocytes % 7.2 %; Mean Corpuscular HGB Conc 32.5 g/dL (30.0-36.0); Mean Corpuscular Hemoglobin 32.5 pg (28.0-34.0); Mean Platelet Volume 10.2 fL (7.4-10.4); Monocytes # 0.5 10^3/uL (0.2-0.9); Monocytes % 4.2 %; Neutrophils # 10.32 10^3/uL (1.8-7.7); Neutrophils % 87.7 %; Nucleated Red Blood Cells % 0 %; Platelet Count 203 10^3/cmm (130-400); Red Blood Count 4.12 10^6/uL (4.1-5.3); Red Cell Distribution Width 12.2 % (12.1-15.1); White Blood Count 11.8 10^3/uL (4.0-10.0)
[2022-12-07 19:53] LABS: Alanine Aminotransferase 15 U/L (0-41); Alkaline Phosphatase 96 U/L (40-130); Aspartate Amino Transferase 18 U/L (0-40); Blood Urea Nitrogen 24 mg/dL (8-23); Calcium 8.7 mg/dL (8.5-10.5); Carbon Dioxide 26 mmol/L (22-29); Chloride 103 mmol/L (98-107); Globulin 2.8 g/dL (1.3-4.6); Glomerular Filtration Rate 112.8 mL/min (90-130); Glucose 113 mg/dL (65-115); Osmolality Calculated 289 mOsm/kg (285-295); Sodium 137 mmol/L (136-145); Total Bilirubin 0.4 mg/dL (0.15-1.2); Total Protein 6.8 g/dL (6.6-8.7)
[2022-12-07 19:58] LABS: Anion Gap 12.1 (5-19); Potassium 4.1 mmol/L (3.5-5.1)
[2022-12-07 20:08] VITALS: BP 163/87; PULSE 68; RESP 18; O2SAT 98
== END 2022-12-07 20:10 | disposition home or self-care (01) ==
PROVIDERS: Emergency Provider Emergency Medicine; PCP Internal Medicine
DX: I95.9 Hypotension, unspecified (principal); I25.10 Atherosclerotic heart disease of native coronary artery without angina pectoris; E11.9 Type 2 diabetes mellitus without complications; I10 Essential (primary) hypertension
CPT/HCPCS: 36415; 80053; 85025; 93005; 99284

== ENCOUNTER → 2023-01-19 09:21 | Outpatient (BNVA) | payer MEDICARE, MEDICAID, SELFPAY | PROVIDERS: PCP Internal Medicine; Visit Provider Urology | DX: N40.1 Benign prostatic hyperplasia with lower urinary tract symptoms (principal); N39.0 Urinary tract infection, site not specified; R97.20 Elevated prostate specific antigen [PSA] | CPT/HCPCS: 51798; 81003; 99213 ==

== ENCOUNTER → 2023-05-28 17:55 | Outpatient (BNVA) | payer MEDICARE, MEDICAID, SELFPAY | PROVIDERS: PCP Internal Medicine; Visit Provider Emergency Medicine | DX: S90.112A Contusion of left great toe without damage to nail, initial encounter (principal); X58.XXXA Exposure to other specified factors, initial encounter | CPT/HCPCS: 73630 ==

== ENCOUNTER 2023-07-17 11:06 | Emergency (ER) | payer MEDICARE, MEDICAID, SELFPAY ==
[2023-07-17 11:55] VITALS: BP 106/40; PULSE 66; RESP 16; O2SAT 100
--- NOTE | 2023-07-17 13:15 | XRR_ITS ---
PROCEDURE INFORMATION: Exam: XR Right Ribs with PA Chest Exam date and time: 07/17/2023 1:58 PM Age: 67 years old Clinical indication: Injury or trauma; Other: Unknown; Rib area; Blunt trauma (contusions or hematomas); Additional info: Injury, bruising TECHNIQUE: Imaging protocol: Radiologic exam of the right ribs with PA chest. Views: 3 views COMPARISON: CR XR chest 1V portable [id number] 12/07/2022 11:37 AM FINDINGS: Lungs: Unremarkable. No consolidation. Pleural spaces: Unremarkable. No pleural effusion. No pneumothorax. Heart/Mediastinum: Unremarkable. No cardiomegaly. Bones/joints: Unremarkable. No displaced rib fracture. XR/XR ribs RT mn 3V w [id number] IMPRESSION: No acute findings.
[2023-07-17 15:03] VITALS: BP 120/73; PULSE 71; O2SAT 96
--- NOTE | 2023-07-17 15:41 | ED_ITS ---
HPI - General Adult General: Chief complaint: General Medical Stated complaint: hurt right side of ribs Time Seen by Provider: 07/17/23 14:50 History of Present Illness: 67-year-old male patient comes in today with bruising to the right posterior ribs. Patient is with a caregiver from the assisted living nursing center he lives that. They believe he might of fell against the rail that they use in the bathroom in order for him to urinate. Patient is ambulatory. Patient appears in no pain. Patient appears nontoxic. Patient is nonverbal with intellectual disability. Review of Systems General: Reports: 10 or more systems reviewed and unremarkable except in HPI and below Musc: Reports: other (Right posterior rib bruising) PFS ED PFSH: Medical History Atherosclerosis Bladder wall thickening Elevated PSA Gross hematuria HTN (hypertension) Mental disorder Nonverbal Prostate enlargement Type 2 diabetes mellitus Surgical History Hx of inguinal hernia repair Family History Brother Intellectual disability Father , UNKNOWN AGE AND CAUSE No problems noted. Mother , UNKNOWN AGE AND CAUSE No problems noted. Social History Smoking and tobacco/nicotine status: never used tobacco/nicotine Alcohol intake: never Substance/Drug Use: never Caregiver/support person: Yes Lives independently: No Housing: Other Details: [facility] Marital status: Single Current occupational status: disabled Physical Exam Const: COMMON NORMALS: alert HENMT: COMMON NORMALS: normocephalic HEAD & SCALP: normocephalic Neck/C-Spine: COMMON NORMALS: full ROM Chest: CHEST: Yes Ecchymosis present (Posterior right, 4 cm circular area) and Yes other (No crepitus or subcutaneous emphysema) Resp: COMMON NORMALS: normal respiratory effort and clear to auscultation bilaterally AUSCULTATION: clear to auscultation bilaterally Cardio: COMMON NORMALS: regular rate and regular rhythm RATE: regular rate RHYTHM: regular rhythm GI: COMMON NORMALS: Soft to palpation and non-tender PALPATION: Yes Soft to palpation : COMMON NORMALS: Yes no CVA tenderness BLADDER/KIDNEY EXAM: Yes no CVA tenderness Back/Pelvis: COMMON NORMALS: no CVA tenderness and thoracic and lumbar spine normal to inspection Extremity: COMMON NORMALS: normal to inspection and full ROM Neuro: SENSORIUM/ORIENTATION: Yes alert Skin: COMMON NORMALS: turgor normal GENERAL SKIN EXAM: turgor normal Course Vital Signs: Vital signs: Vital Signs Pulse Rate 71 07/17/23 15:03 Respiratory Rate 16 07/17/23 11:55 Blood Pressure 120/73 07/17/23 15:03 Pulse Oximetry 96 07/17/23 15:03 Oxygen Delivery Me thod Room Air 07/17/23 15:03 MDM - General Adult Medical Decision Making 67-year-old male patient that resides at an assisted living center comes in today for evaluation of bruising to the right posterior ribs. On exam patient has an area of bruising approximately 4 cm circular to the right posterior rib area. No crepitus, or subcutaneous emphysema is noted. Vital signs are normal. Lungs are clear to auscultation. Differential diagnosis includes rib fracture, pneumothorax, contusion, accidental versus intentional injury. X-ray of the ribs showed no signs of fracture. Reviewed exam with patient's caregiver with recommendations for treatment and follow-up. Caregiver reports understanding. Lab Data Radiology Impressions Ribs X-Ray 07/17/23 13:15 IMPRESSION: No acute findings. All radiology interpretation(s) finalized by discharge Discharge Plan Discharge Patient Disposition: Home Clinical Impression: Contusion of rib on left side Qualifiers: Encounter type: initial encounter Qualified Code(s): S20.212A - Contusion of left front wall of thorax, initial encounter Condition: Stable Prescriptions: No Action polyethylene glycol 3350 17 gram/dose powder 17 gm PO DAILY@08 Rx Instructions: hold 2 days if diarrhea ocurs lovastatin 10 mg tablet 10 mg PO BEDTIME@20 acetaminophen 325 mg capsule 650 mg PO Q4H MDD 6 doses PRN (Reason: Pain) Pepto-Bismol Max St 525 mg/15 mL suspension 1,050 mg PO Q4H MDD 6 doses PRN (Reason: upset stomach) melatonin 10 mg capsule 10 mg PO BEDTIME PRN (Reason: Insomnia) ibuprofen 100 mg/5 mL suspension 400 mg PO Q8H MDD 3 doses PRN (Reason: Pain) promethazine-DM 6.25-15 mg/5 mL syrup 5 ml PO Q6H MDD 4 doses PRN (Reason: Cough) promethazine 25 mg tablet 25 mg PO Q6H MDD 4 doses PRN (Reason: Nausea) lactulose [Constulose] 10 gram/15 mL solution 10 gm PO DAILY PRN (Reason: Constipation) bisacodyl [Dulcolax (bisacodyl)] 10 mg suppository 10 mg VT DAILY PRN (Reason: Constipation) Rx Instructions: for no bm x4 days loperamide 2 mg tablet See Rx Instructions .ROUTE .COMPLEX Rx Instructions: 4mg (2 caps) po after 1st loose stool then one cap after each loose stool thereafter -max of 4 caps in 24 hours simethicone [Gas Relief (simethicone)] 125 mg capsule 125 mg PO Q6H MDD 4 doses PRN (Reason: unknown) tamsulosin 0.4 mg capsule 0.4 mg PO BID@08,20 Qty: 180 3RF methenamine hippurate 1 gram tablet 1 g PO BID@08,20 Qty: 180 3RF Rx Instructions: for recurrent uti. take with 1000 MG of vitamin c at each dose finasteride 5 mg tablet 5 mg PO BEDTIME@20 Qty: 90 3RF Tussin DM 10-100 mg/5 mL Liquid 10 ml PO Q4H MDD 6 doses PRN (Reason: Cough) ondansetron HCl 4 mg tablet 4 mg PO Q6H MDD 4 doses PRN (Reason: Nausea And Vomiting) Flonase 50 mcg/actuation [place],Suspension 2 spray INTRANASAL DAILY@20 Rx Instructions: administer into each nostril Triple Antibiotic 3.5mg-400 unit- 5,000 unit/gram Ointment See Rx Instructions .ROUTE .COMPLEX Rx Instructions: apply topically to affected area q12h prn cuts/abrasions Vitamin C 1,000 mg tablet 1,000 mg PO BID@08,20 Rx Instructions: TAKE WITH EACH DOSE OF METHENAMINE metoprolol tartrate 25 mg tablet 25 mg PO BID Qty: 60 0RF Discharge Orders: Discharge ED (Routine); Ordered 07/17/23 Ordered By: Armando Phelps Referrals: Shu Anders MD [Primary Care Provider] - Discharge Diet: Usual diet Discharge Activity: Increase activity as tolerated Patient Instructions: Rib Contusion (ED) Activity Restrictions/Additional Instructions: Activity as tolerated. Acetaminophen or ibuprofen as needed for pain. Follow- up with primary care for further instructions. Return to ED for new concerns or worsening symptoms such as increasing shortness of breath, or high fever. Coding Level of Care Code ED Air Sampling And Monitoring for [employer]ino [employer]er
== END 2023-07-17 15:59 | disposition home or self-care (01) ==
PROVIDERS: Emergency Provider Nurse Practitioner Family; PCP Internal Medicine
DX: S20.211A Contusion of right front wall of thorax, initial encounter (principal); I10 Essential (primary) hypertension; E11.9 Type 2 diabetes mellitus without complications; W19.XXXA Unspecified fall, initial encounter; Y92.099 Unspecified place in other non-institutional residence as the place of occurrence of the external cause
CPT/HCPCS: 71101; 99283

== ENCOUNTER → 2023-09-21 13:25 | Outpatient (BNVA) | payer MEDICARE, MEDICAID, SELFPAY | PROVIDERS: PCP Internal Medicine; Visit Provider Registered Nurse Neonatal Intensive Care | DX: R50.9 Fever, unspecified (principal); J06.9 Acute upper respiratory infection, unspecified | CPT/HCPCS: 87400; 87426 ==

== ENCOUNTER 2023-09-28 16:01 | Emergency (ER) | payer MEDICARE, MEDICAID, SELFPAY ==
[2023-09-28 16:17] VITALS: BP 125/70; PULSE 103; RESP 16; TEMP 36.4; O2SAT 97; BMI 20.7
--- NOTE | 2023-09-28 16:27 | W.ED.MALEGU ---
Documented by User: MOON Asif 09/28/23 16:55 HPI - Male Genitourinary General: Chief complaint: Urogenital-Male Stated complaint: trouble urinating Time Seen by Provider: 09/28/23 16:26 Source: other (care staff) Mode of arrival: ambulatory Limitations: other (Significant disability/nonverbal) History of Present Illness: Patient is a 67-year-old male with significant disability along with being nonverbal here with his care staff for concerns of oliguria. Care staff states they routinely toilet patient hourly as he has a history of urinary obstruction secondary to BPH. They state he normally has urine outputs of over 2000 mL daily but states today from the hours of 8 AM to 3 PM he only voided one time and has had a total of 100 mL. They contacted their primary care provider and had an RN on staff who attempted a straight cath with very minimal urine output. They did state urine was dark and foul-smelling. Patient is completely nonverbal and therefore not available for any history. Care staff does state that when patient is in pain he becomes aggressive and waves his arms which he has been doing recently. He has not been running fevers. No history of kidney disease. Onset (ago): hour(s) Related Data: Sexually active: No Review of Systems General: Reports: ROS unobtainable due to medical condition, ROS unobtainable due to mental status and Other (pt is non-verbal) PFSH ED PFSH: Medical History HTN (hypertension) Bladder wall thickening Type 2 diabetes mellitus Atherosclerosis Mental disorder Nonverbal Gross hematuria Elevated PSA Prostate enlargement Surgical History Hx of inguinal hernia repair Family History Brother Intellectual disability Father , UNKNOWN AGE AND CAUSE No problems noted. Mother , UNKNOWN AGE AND CAUSE No problems noted. Social History Smoking and tobacco/nicotine status: never used tobacco/nicotine Alcohol intake: never Substance/Drug Use: never Caregiver/support person: Yes Lives independently: No Housing: Other Details: [facility] Marital status: Single Current occupational status: disabled Physical Exam Const: COMMON NORMALS: average body habitus and alert EXAM LIMITATIONS: other limitations (pt has severe disability/nonverbal) GENERAL APPEARANCE: cooperative Eye: COMMON NORMALS: no scleral icterus Resp: COMMON NORMALS: normal respiratory effort Cardio: COMMON NORMALS: regular rhythm RATE: tachycardic (mild) RHYTHM: regular rhythm GI: COMMON NORMALS: Normal to inspection, nondistended, normoactive bowel sounds present, Soft to palpation, non-tender, No hepatosplenomegaly present and no masses INSPECTION: Yes normal to inspection PALPATION: Yes Soft to palpation and Yes No hepatosplenomegaly present OTHER: bladder does not appear to be over-distended : COMMON NORMALS: Yes no CVA tenderness BLADDER/KIDNEY EXAM: Yes no CVA tenderness Back/Pelvis: COMMON NORMALS: no CVA tenderness Neuro: SENSORIUM/ORIENTATION: Yes alert Course Vital Signs: Vital signs: Vital Signs Temperature 97.6 F 09/28/23 16:17 Pulse Rate 103 H 09/28/23 16:17 Respiratory Rate 16 09/28/23 16:17 Blood Pressure 125/70 09/28/23 16:17 Pulse Oximetry 97 09/28/23 16:17 Oxygen Delivery Me thod Room Air 09/28/23 16:17 MDM - Male Lab Data 09/28/23 16:56 09/28/23 16:56 Laboratory Results WBC 9.03 10^3/uL (3.29-11.43) 09/28/23 16:56 RBC 3.86 10^6/uL (3.85-5.65) 09/28/23 16:56 Hgb 12.80 g/dL (11.27-16.99) 09/28/23 16:56 Hct 38.6 % (37-53) 09/28/23 16:56 MCV 100.0 fl (82-101) 09/28/23 16:56 MCH 33.2 pg (27-33) H 09/28/23 16:56 MCHC 33.2 g/dL (30-55) 09/28/23 16:56 RDW 11.8 % (12.1-15.1) L 09/28/23 16:56 Plt Count 187 10^3/cmm (157-399) 09/28/23 16:56 MPV 10.5 fL (7.4-10.4) H 09/28/23 16:56 Neut % (Auto) 80.5 % 09/28/23 16:56 Lymph % (Auto) 12.7 % 09/28/23 16:56 [place] % (Auto) 6.0 % 09/28/23 16:56 Eos % (Auto) 0.2 % 09/28/23 16:56 Baso % (Auto) 0.3 % 09/28/23 16:56 Neut # (Auto) 7.26 10^3/uL (1.8-7.7) 09/28/23 16:56 Lymph # (Auto) 1.2 10^3/uL (0.8-4.8) 09/28/23 16:56 [place] # (Auto) 0.5 10^3/uL (0.2-0.9) 09/28/23 16:56 Eos # (Auto) 0.0 10^3/uL (0.0-0.8) 09/28/23 16:56 Baso # (Auto) 0.0 10^3/uL (0.0-0.1) 09/28/23 16:56 Nucleated RBC % (auto) 0 % 09/28/23 16:56 Nucleated RBCs # 0.0 /100WBC 09/28/23 16:56 Sodium 142 mmol/L (136-145) 09/28/23 16:56 Potassium 4.2 mmol/L (3.5-5.1) 09/28/23 16:56 Chloride 106 mmol/L (98-107) 09/28/23 16:56 Carbon Dioxide 27 mmol/L (22-29) 09/28/23 16:56 Anion Gap 13.2 (5-19) 09/28/23 16:56 BUN 32 mg/dL (8-23) H 09/28/23 16:56 Creatinine 0.8 mg/dL (0.7-1.2) 09/28/23 16:56 GFR Calculation 96.4 mL/min (90-130) 09/28/23 16:56 Glucose 116 mg/dL (65-115) H 09/28/23 16:56 Calculated Osmolality 302 mOsm/kg (285-295) H 09/28/23 16:56 Calcium 9.1 mg/dL (8.5-10.5) 09/28/23 16:56 Total Bilirubin 0.3 mg/dL (0.15-1.2) 09/28/23 16:56 AST 17 U/L (0-40) 09/28/23 16:56 ALT 27 U/L (0-41) 09/28/23 16:56 Alkaline Phosphatase 123 U/L (40-130) 09/28/23 16:56 Total Protein 6.8 g/dL (6.6-8.7) 09/28/23 16:56 Albumin 3.9 g/dL (3.5-5.2) 09/28/23 16:56 Globulin 2.9 g/dL (1.3-4.6) 09/28/23 16:56 Urine Color Yellow (Yellow) 09/28/23 18:21 Urine Appearance Clear (CLEAR) 09/28/23 18:21 Urine pH 6 (5-7) 09/28/23 18:21 Ur Specific [place] 1.020 (1.005-1.030) 09/28/23 18:21 Urine Protein Neg (Negative) 09/28/23 18:21 Urine Glucose (UA) Norm (Normal) 09/28/23 18:21 Urine Ketones Negative (Negative) 09/28/23 18:21 Urine Blood 3+ (Negative) H 09/28/23 18:21 Urine Nitrate Negative (Negative) 09/28/23 18:21 Urine Bilirubin Neg (Negative) 09/28/23 18:21 Urine Urobilinogen Norm mg/dL (Negative) 09/28/23 18:21 Ur Leukocyte Esterase Negative (Negative) 09/28/23 18:21 Urine RBC 40-50 /hpf (0-2) H 09/28/23 18:21 Urine WBC 10-15 /hpf (0-5) H 09/28/23 18:21 Ur Squamous Epith Cells 0-4 /hpf (0-5) H 09/28/23 18:21 Amorphous Sediment Not Reportable 09/28/23 18:21 Urine Bacteria None /hpf (NONE) 09/28/23 18:21 Urine Mucus None /hpf 09/28/23 18:21 Discharge Plan Discharge Patient Disposition: Home Clinical Impression: Decreased urine output Condition: Stable Prescriptions: No Action polyethylene glycol 3350 17 gram/dose powder 17 gm PO DAILY@08 Rx Instructions: hold 2 days if diarrhea ocurs lovastatin 10 mg tablet 10 mg PO BEDTIME@20 acetaminophen 325 mg capsule 650 mg PO Q4H MDD 6 doses PRN (Reason: Pain) Pepto-Bismol Max St 525 mg/15 mL suspension 1,050 mg PO Q4H MDD 6 doses PRN (Reason: upset stomach) melatonin 10 mg capsule 10 mg PO BEDTIME PRN (Reason: Insomnia) ibuprofen 100 mg/5 mL suspension 400 mg PO Q8H MDD 3 doses PRN (Reason: Pain) promethazine-DM 6.25-15 mg/5 mL syrup 5 ml PO Q6H MDD 4 doses PRN (Reason: Cough) promethazine 25 mg tablet 25 mg PO Q6H MDD 4 doses PRN (Reason: Nausea) lactulose [Constulose] 10 gram/15 mL solution 10 gm PO DAILY PRN (Reason: Constipation) bisacodyl [Dulcolax (bisacodyl)] 10 mg suppository 10 mg MI DAILY PRN (Reason: Constipation) Rx Instructions: for no bm x4 days loperamide 2 mg tablet See Rx Instructions .ROUTE .COMPLEX Rx Instructions: 4mg (2 caps) po after 1st loose stool then one cap after each loose stool thereafter -max of 4 caps in 24 hours simethicone [Gas Relief (simethicone)] 125 mg capsule 125 mg PO Q6H MDD 4 doses PRN (Reason: unknown) tamsulosin 0.4 mg capsule 0.4 mg PO BID@08,20 Qty: 180 3RF methenamine hippurate 1 gram tablet 1 g PO BID@08,20 Qty: 180 3RF Rx Instructions: for recurrent uti. take with 1000 MG of vitamin c at each dose finasteride 5 mg tablet 5 mg PO BEDTIME@20 Qty: 90 3RF Tussin DM 10-100 mg/5 mL Liquid 10 ml PO Q4H MDD 6 doses PRN (Reason: Cough) ondansetron HCl 4 mg tablet 4 mg PO Q6H MDD 4 doses PRN (Reason: Nausea And Vomiting) Flonase 50 mcg/actuation Guide [place],Suspension 2 spray INTRANASAL DAILY@20 Rx Instructions: administer into each nostril Triple Antibiotic 3.5mg-400 unit- 5,000 unit/gram Ointment See Rx Instructions .ROUTE .COMPLEX Rx Instructions: apply topically to affected area q12h prn cuts/abrasions Vitamin C 1,000 mg tablet 1,000 mg PO BID@08,20 Rx Instructions: TAKE WITH EACH DOSE OF METHENAMINE metoprolol tartrate 25 mg tablet 25 mg PO BID Qty: 60 0RF Discharge Orders: Discharge ED (Routine); Ordered 09/28/23 Ordered By: Joanna Randall Referrals: Shu Anders MD [Primary Care Provider] - Discharge Diet: Advance as tolerated Discharge Activity: Resume usual activity Patient Instructions: Benign Prostatic Hypertrophy (BPH) Activity Restrictions/Additional Instructions: Patient's evaluation here in the emergency department found only a small amount of urine in the patient's bladder upon his arrival to the emergency department. He was able to tolerate p.o. intake and independently provided a urine specimen for us to test. His urinalysis revealed no acute concerns. Urine pH was 6 with a specific gravity 1.020. Patient had no bacteria, no leukocyte Estrace, no nitrites or protein found. There was 3+ blood and 40-50 red blood cells but from report, there was a straight cath attempt on the patient earlier today. There is a urine culture ordered for continued testing of the patient's urine over the next 48 hours. Lab work today showed no signs of an elevated white blood cell count. All of his electrolytes were within normal limits. GFR was 96.4 and a creatinine of 0.8. At this time, I am not concerned of any acute kidney injury, significant dehydration, or urinary tract infection. It is possible patient is having acute flareup of BPH but, as he is still passing urine-and only having a small amount of urine originally found within his bladder, we would encourage continued monitoring of his I's and O's. If there is concerns for urinary retention such as indications of pain, swelling in the lower abdomen, pain on palpation in the lower abdomen or palpable bladder you do recommend he be seen and reevaluated for the possibility of an indwelling Coles catheter. Sign Out Sign Out Data: Patient Sign Out occurred on 09/28/23 at 17:12. Patient's care was discussed, and care was transferred from MOON Asif to MOON Banuelos. 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 Mother , UNKNOWN AGE AND CAUSE No problems noted. Social History Smoking and tobacco/nicotine status: never used tobacco/nicotine Alcohol intake: never Substance/Drug Use: never Caregiver/support person: Yes Lives independently: No Housing: Other Details: [facility] Marital status: Single Current occupational status: disabled Course Vital Signs: Vital signs: Vital Signs Temperature 97.6 F 09/28/23 16:17 Pulse Rate 103 H 09/28/23 16:17 Respiratory Rate 16 09/28/23 16:17 Blood Pressure 125/70 09/28/23 16:17 Pulse Oximetry 97 09/28/23 16:17 Oxygen Delivery Me thod Room Air 09/28/23 16:17 MDM - Male Medical Decision Making Joanna Randall PA-C: Transfer of care at 1700 from Lucretia Strickland PA-C. Lucretia discussed me the patient's presenting concerns. As patient is nonverbal, history is being provided from a guardian from his care facility. It was reported that patient had very little output through the day today and it was recommended by the doctor that he be brought to the emergency department. Patient had a bladder scan performed here in the emergency department which showed only approximately 50 cc of urine. However, the nurse came to inform me that when she did the bladder scan, the patient's adult briefs was saturated with urine. Patient is tolerating oral intake so I encouraged fluids here in the emergency department. They report patient had greater than 1000 mL of fluids here in the emergency department. Recheck of the patient's bladder just after his oral intake showed 75 cc and, patient was able to produce a urine specimen on request. While the UA was being run, the patient's lab work was coming back. Showed no signs of an elevated white blood cell count. No signs of any electrolyte abnormality. GFR and creatinine were within normal limits. Urinalysis showed no bacteria. There was a small amount of white blood cells but no leukocyte esterase, no protein, and no nitrites. Patient did have positive findings of blood however, the patient's guardian indicated there was a straight cath attempt at the facility around 3 PM this afternoon. As the patient is tolerating oral intake, is producing urine upon request and came in with a saturated adult depends, I do think he is passing urine without acute urinary retention at this time. He is afebrile without any signs in his lab work to make me concerns of acute kidney failure/acute kidney injury, or sepsis. The patient's guardian had a form requesting a brief synopsis of the patient's evaluation here in the emergency department which was filled out, scanned into the patient's chart, and requested by the community health nursing director to be faxed to Ivania Kaur RN. It was requested that I&O's be continually monitored as patient had significant oral intake in the emergency department and was suspect good output in the next 8 to 10 hours. However, if they notice signs of discomfort, swelling of the lower abdomen or palpable bladder, no urinary output during the next 8 to 10 hours or new onset vomiting/fever, we recommended to be seen and reevaluated again for potential acute urinary retention requiring placement of an indwelling Coles catheter. Guardian verbalized understanding and agreement to treatment plan. Differential Diagnosis Unlikely urinary tract infection, priapism, urethritis, epididymitis, prostatitis, acute retention of urine or inguinal hernia Lab Data 09/28/23 16:56 09/28/23 16:56 Laboratory Results WBC 9.03 10^3/uL (3.29-11.43) 09/28/23 16:56 RBC 3.86 10^6/uL (3.85-5.65) 09/28/23 16:56 Hgb 12.80 g/dL (11.27-16.99) 09/28/23 16:56 Hct 38.6 % (37-53) 09/28/23 16:56 MCV 100.0 fl (82-101) 09/28/23 16:56 MCH 33.2 pg (27-33) H 09/28/23 16:56 MCHC 33.2 g/dL (30-55) 09/28/23 16:56 RDW 11.8 % (12.1-15.1) L 09/28/23 16:56 Plt Count 187 10^3/cmm (157-399) 09/28/23 16:56 MPV 10.5 fL (7.4-10.4) H 09/28/23 16:56 Neut % (Auto) 80.5 % 09/28/23 16:56 Lymph % (Auto) 12.7 % 09/28/23 16:56 [place] % (Auto) 6.0 % 09/28/23 16:56 Eos % (Auto) 0.2 % 09/28/23 16:56 Baso % (Auto) 0.3 % 09/28/23 16:56 Neut # (Auto) 7.26 10^3/uL (1.8-7.7) 09/28/23 16:56 Lymph # (Auto) 1.2 10^3/uL (0.8-4.8) 09/28/23 16:56 [place] # (Auto) 0.5 10^3/uL (0.2-0.9) 09/28/23 16:56 Eos # (Auto) 0.0 10^3/uL (0.0-0.8) 09/28/23 16:56 Baso # (Auto) 0.0 10^3/uL (0.0-0.1) 09/28/23 16:56 Nucleated RBC % (auto) 0 % 09/28/23 16:56 Nucleated RBCs # 0.0 /100WBC 09/28/23 16:56 Sodium 142 mmol/L (136-145) 09/28/23 16:56 Potassium 4.2 mmol/L (3.5-5.1) 09/28/23 16:56 Chloride 106 mmol/L (98-107) 09/28/23 16:56 Carbon Dioxide 27 mmol/L (22-29) 09/28/23 16:56 Anion Gap 13.2 (5-19) 09/28/23 16:56 BUN 32 mg/dL (8-23) H 09/28/23 16:56 Creatinine 0.8 mg/dL (0.7-1.2) 09/28/23 16:56 GFR Calculation 96.4 mL/min (90-130) 09/28/23 16:56 Glucose 116 mg/dL (65-115) H 09/28/23 16:56 Calculated Osmolality 302 mOsm/kg (285-295) H 09/28/23 16:56 Calcium 9.1 mg/dL (8.5-10.5) 09/28/23 16:56 Total Bilirubin 0.3 mg/dL (0.15-1.2) 09/28/23 16:56 AST 17 U/L (0-40) 09/28/23 16:56 ALT 27 U/L (0-41) 09/28/23 16:56 Alkaline Phosphatase 123 U/L (40-130) 09/28/23 16:56 Total Protein 6.8 g/dL (6.6-8.7) 09/28/23 16:56 Albumin 3.9 g/dL (3.5-5.2) 09/28/23 16:56 Globulin 2.9 g/dL (1.3-4.6) 09/28/23 16:56 Urine Color Yellow (Yellow) 09/28/23 18:21 Urine Appearance Clear (CLEAR) 09/28/23 18:21 Urine pH 6 (5-7) 09/28/23 18:21 Ur Specific [place] 1.020 (1.005-1.030) 09/28/23 18:21 Urine Protein Neg (Negative) 09/28/23 18:21 Urine Glucose (UA) Norm (Normal) 09/28/23 18:21 Urine Ketones Negative (Negative) 09/28/23 18:21 Urine Blood 3+ (Negative) H 09/28/23 18:21 Urine Nitrate Negative (Negative) 09/28/23 18:21 Urine Bilirubin Neg (Negative) 02/13/24 18:21 Urine Urobilinogen Norm mg/dL (Negative) 09/28/23 18:21 Ur Leukocyte Esterase Negative (Negative) 09/28/23 18:21 Urine RBC 40-50 /hpf (0-2) H 09/28/23 18:21 Urine WBC 10-15 /hpf (0-5) H 09/28/23 18:21 Ur Squamous Epith Cells 0-4 /hpf (0-5) H 09/28/23 18:21 Amorphous Sediment Not Reportable 09/28/23 18:21 Urine Bacteria None /hpf (NONE) 09/28/23 18:21 Urine Mucus None /hpf 09/28/23 18:21 No radiology studies performed this visit Discharge Plan Discharge Patient Disposition: Home Clinical Impression: Decreased urine output Condition: Stable Prescriptions: No Action polyethylene glycol 3350 17 gram/dose powder 17 gm PO DAILY@08 Rx Instructions: hold 2 days if diarrhea ocurs lovastatin 10 mg tablet 10 mg PO BEDTIME@20 acetaminophen 325 mg capsule 650 mg PO Q4H MDD 6 doses PRN (Reason: Pain) Pepto-Bismol Max St 525 mg/15 mL suspension 1,050 mg PO Q4H MDD 6 doses PRN (Reason: upset stomach) melatonin 10 mg capsule 10 mg PO BEDTIME PRN (Reason: Insomnia) ibuprofen 100 mg/5 mL suspension 400 mg PO Q8H MDD 3 doses PRN (Reason: Pain) promethazine-DM 6.25-15 mg/5 mL syrup 5 ml PO Q6H MDD 4 doses PRN (Reason: Cough) promethazine 25 mg tablet 25 mg PO Q6H MDD 4 doses PRN (Reason: Nausea) lactulose [Constulose] 10 gram/15 mL solution 10 gm PO DAILY PRN (Reason: Constipation) bisacodyl [Dulcolax (bisacodyl)] 10 mg suppository 10 mg MI DAILY PRN (Reason: Constipation) Rx Instructions: for no bm x4 days loperamide 2 mg tablet See Rx Instructions .ROUTE .COMPLEX Rx Instructions: 4mg (2 caps) po after 1st loose stool then one cap after each loose stool thereafter -max of 4 caps in 24 hours simethicone [Gas Relief (simethicone)] 125 mg capsule 125 mg PO Q6H MDD 4 doses PRN (Reason: unknown) tamsulosin 0.4 mg capsule 0.4 mg PO BID@08, Qty: 180 3RF methenamine hippurate 1 gram tablet 1 g PO BID@,20 Qty: 180 3RF Rx Instructions: for recurrent uti. take with 1000 MG of vitamin c at each dose finasteride 5 mg tablet 5 mg PO BEDTIME@20 Qty: 90 3RF Tussin DM 10-100 mg/5 mL Liquid 10 ml PO Q4H MDD 6 doses PRN (Reason: Cough) ondansetron HCl 4 mg tablet 4 mg PO Q6H MDD 4 doses PRN (Reason: Nausea And Vomiting) Flonase 50 mcg/actuation [place],Suspension 2 spray INTRANASAL DAILY@20 Rx Instructions: administer into each nostril Triple Antibiotic 3.5mg-400 unit- 5,000 unit/gram Ointment See Rx Instructions .ROUTE .COMPLEX Rx Instructions: apply topically to affected area q12h prn cuts/abrasions Vitamin C 1,000 mg tablet 1,000 mg PO BID@08,20 Rx Instructions: TAKE WITH EACH DOSE OF METHENAMINE metoprolol tartrate 25 mg tablet 25 mg PO BID Qty: 60 0RF Discharge Orders: Discharge ED (Routine); Ordered 09/28/23 Ordered By: Joanna Randall Referrals: Shu Anders MD [Primary Care Provider] - Discharge Diet: Advance as tolerated Discharge Activity: Resume usual activity Patient Instructions: Benign Prostatic Hypertrophy (BPH) Activity Restrictions/Additional Instructions: Patient's evaluation here in the emergency department found only a small amount of urine in the patient's bladder upon his arrival to the emergency department. He was able to tolerate p.o. intake and independently provided a urine specimen for us to test. His urinalysis revealed no acute concerns. Urine pH was 6 with a specific gravity 1.020. Patient had no bacteria, no leukocyte Estrace, no nitrites or protein found. There was 3+ blood and 40-50 red blood cells but from report, there was a straight cath attempt on the patient earlier today. There is a urine culture ordered for continued testing of the patient's urine over the next 48 hours. Lab work today showed no signs of an elevated white blood cell count. All of his electrolytes were within normal limits. GFR was 96.4 and a creatinine of 0.8. At this time, I am not concerned of any acute kidney injury, significant dehydration, or urinary tract infection. It is possible patient is having acute flareup of BPH but, as he is still passing urine-and only having a small amount of urine originally found within his bladder, we would encourage continued monitoring of his I's and O's. If there is concerns for urinary retention such as indications of pain, swelling in the lower abdomen, pain on palpation in the lower abdomen or palpable bladder you do recommend he be seen and reevaluated for the possibility of an indwelling Coles catheter. Sign Out Sign Out Data: Patient Sign Out occurred on 09/28/23 at 17:12. Patient's care was discussed, and care was transferred from MOON Asif to MOON Banuelos. 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
[2023-09-28 17:28] LABS: Basophils % 0.3 %; Eosinophils % 0.2 %; Hematocrit 38.6 % (37-53); Lymphocytes # 1.2 10^3/uL (0.8-4.8); Lymphocytes % 12.7 %; Mean Corpuscular HGB Conc 33.2 g/dL (30-55); Mean Corpuscular Hemoglobin 33.2 pg (27-33); Mean Platelet Volume 10.5 fL (7.4-10.4); Monocytes # 0.5 10^3/uL (0.2-0.9); Neutrophils # 7.26 10^3/uL (1.8-7.7); Neutrophils % 80.5 %; Nucleated Red Blood Cells % 0 %; Platelet Count 187 10^3/cmm (157-399); Red Blood Count 3.86 10^6/uL (3.85-5.65); Red Cell Distribution Width 11.8 % (12.1-15.1); White Blood Count 9.03 10^3/uL (3.29-11.43)
[2023-09-28 18:08] LABS: Alanine Aminotransferase 27 U/L (0-41); Albumin Level 3.9 g/dL (3.5-5.2); Alkaline Phosphatase 123 U/L (40-130); Anion Gap 13.2 (5-19); Aspartate Amino Transferase 17 U/L (0-40); Blood Urea Nitrogen 32 mg/dL (8-23); Calcium 9.1 mg/dL (8.5-10.5); Carbon Dioxide 27 mmol/L (22-29); Chloride 106 mmol/L (98-107); Globulin 2.9 g/dL (1.3-4.6); Glomerular Filtration Rate 96.4 mL/min (90-130); Glucose 116 mg/dL (65-115); Osmolality Calculated 302 mOsm/kg (285-295); Potassium 4.2 mmol/L (3.5-5.1); Sodium 142 mmol/L (136-145); Total Bilirubin 0.3 mg/dL (0.15-1.2); Total Protein 6.8 g/dL (6.6-8.7)
[2023-09-28 18:44] LABS: Urine Appearance Clear (CLEAR); Urine Color Yellow (Yellow); pH Urine 6 (5-7)
[2023-09-28 18:45] LABS: Add Urine Microscopic? YES; Bilirubin Urine Neg (Negative); Blood Urine 3+ (Negative); Glucose Urine UA Norm (Normal); Ketones Urine Negative (Negative); Leukocyte Esterase Urine Negative (Negative); Nitrate Urine Negative (Negative); Protein Urine Neg (Negative); Urobilinogen Urine Norm (Negative)
[2023-09-28 18:48] LABS: Add Urine Culture? Yes; RBC Urine 40-50 /hpf (0-2); Squamous Epithelial Cell Urine 0-4 /hpf (0-5)
== END 2023-09-28 19:52 | disposition home or self-care (01) ==
PROVIDERS: Emergency Medicine; Physician Assistant; Emergency Provider Physician Assistant; PCP Internal Medicine
DX: R33.9 Retention of urine, unspecified (principal); I10 Essential (primary) hypertension; E11.9 Type 2 diabetes mellitus without complications
CPT/HCPCS: 36415; 51798; 80053; 81001; 85025; 87086; 99283

== ENCOUNTER → 2024-07-17 12:23 | Outpatient (BNVA) | payer MEDICARE, MEDICAID, SELFPAY | PROVIDERS: PCP Internal Medicine; Visit Provider Nurse Practitioner Family | DX: J06.9 Acute upper respiratory infection, unspecified (principal); N39.0 Urinary tract infection, site not specified | CPT/HCPCS: 81000; 87400; 87426 ==

== ENCOUNTER 2024-08-03 14:11 | Outpatient (CLI) | payer MEDICARE, MEDICAID, SELFPAY ==
--- NOTE | 2024-08-03 14:17 | XRR_ITS ---
PROCEDURE INFORMATION: Exam: XR Abdomen Exam date and time: 08/03/2024 2:35 PM Age: 68 years old Clinical indication: Constipation; Additional info: Constipation, pain, R/O bowel obstruction TECHNIQUE: Imaging protocol: Radiologic exam of the abdomen. Views: Frontal supine view of the abdomen. 1 View. COMPARISON: CT abdomen pelvis w con* [id number] 08/16/2021 7:35 PM FINDINGS: Gastrointestinal tract: Moderately increased colonic stool burden. Moderate rectal fecal impaction. No definitive bowel obstruction. Bones/joints: Degenerative changes of the thoracolumbar spine. XR/XR KUB [id number] IMPRESSION: Moderate constipation and rectal fecal impaction. No definitive visualized bowel obstruction.
== END 2024-08-03 14:12 | disposition home or self-care (01) ==
PROVIDERS: PCP Internal Medicine; Visit Provider Nurse Practitioner Family
DX: K59.00 Constipation, unspecified (principal); K56.41 Fecal impaction; Z90.49 Acquired absence of other specified parts of digestive tract; M51.35 Other intervertebral disc degeneration, thoracolumbar region
CPT/HCPCS: 74018

== ENCOUNTER 2024-10-24 09:43 | Emergency (ER) | payer MEDICARE, MEDICAID, SELFPAY ==
[2024-10-24 09:55] VITALS: BP 130/71; PULSE 83; RESP 17; TEMP 36; O2SAT 99
[2024-10-24 10:41] LABS: Basophils % 0.4 %; Eosinophils # 0.1 10^3/uL (0.0-0.8); Eosinophils % 1.7 %; Hematocrit 40.8 % (37-53); Lymphocytes # 1.1 10^3/uL (0.8-4.8); Lymphocytes % 22.9 %; Mean Corpuscular HGB Conc 32.8 g/dL (30-55); Mean Corpuscular Hemoglobin 33.6 pg (27-33); Mean Corpuscular Volume 102.3 fl (82-101); Mean Platelet Volume 10.3 fL (7.4-10.4); Monocytes # 0.5 10^3/uL (0.2-0.9); Monocytes % 9.9 %; Neutrophils # 2.99 10^3/uL (1.8-7.7); Neutrophils % 64.7 %; Nucleated Red Blood Cells % 0 %; Platelet Count 152 10^3/cmm (157-399); Red Blood Count 3.99 10^6/uL (3.85-5.65); Red Cell Distribution Width 11.9 % (12.1-15.1); White Blood Count 4.63 10^3/uL (3.29-11.43)
--- NOTE | 2024-10-24 10:53 | ED_ITS ---
HPI - Abdominal Pain 2 General: Chief Complaint: Abdominal Pain Stated Complaint: abd distension Time Seen by Provider: 10/24/24 10:03 History of Present Illness: 68-year-old male presents emergency room with complaint of abdominal pain and distention. Get progressively worse for the last 7 to 8 days. No fever sweats chills no vomiting or diarrhea no hematochezia or melena. He has had some incontinence intermittently. Associated Symptoms: Denies chills, dysuria and fever(s) Related Data Home Medications ?Medication ?Instructions ?Recorded ?Confirmed acetaminophen 325 mg capsule 650 mg PO Q4H PRN Pain 10/24/24 bisacodyl 10 mg rectal suppository 10 mg MI DAILY PRN Constipation 02/21/20 10/24/24 (Dulcolax (bisacodyl)) bismuth subsalicylate 525 mg/15 mL 1,050 mg PO Q4H PRN upset stomach 02/21/20 10/24/24 oral suspension (Pepto-Bismol Max St) ibuprofen 100 mg/5 mL oral 400 mg PO Q8H PRN Pain 0 04/0410/24/24 suspension lactulose 10 gram/15 mL oral 10 gm PO DAILY PRN Consti pation 02/21/20 10/24/24 solution (Constulose) loperamide 2 mg tablet See Rx Instructions .Route . COMPLEX 02/21/20 10/24/24 lovastatin 10 mg tablet 10 mg PO BEDTIME@02/21/20 10/24/24 melatonin 10 mg capsule 10 mg PO BEDTIME PRN Insomni a 02/21/20 10/24/24 polyethylene glycol 3350 17 17 gm PO DAILY@02/21/20 10/24/24 gram/dose oral powder promethazine 25 mg tablet 25 mg PO Q6H PRN Nausea 04/0410/24/24 promethazine-DM 6.25 mg-15 mg/5 mL 5 ml PO Q6H PRN Cou gh 02/21/20 10/24/24 oral syrup simethicone 125 mg capsule (Gas 125 mg PO Q6H PRN unkn own 11/21/21 10/24/24 Relief (simethicone)) ascorbic acid (vitamin C) 1,000 mg 1,000 mg PO BID@08, 20 12/07/22 10/24/24 tablet (Vitamin C) dextromethorphan-guaifenesin 10 10 ml PO Q8H PRN Cough 12/07/22 10/24/24 mg-100 mg/5 mL oral liquid (Tussin DM) fluticasone propionate 50 2 spray intranasal DAILY@20 12/07/22 10/24/24 mcg/actuation nasal spray,suspension neomycin-bacitracn Zn-polymyx 3.5 See Rx Instructions .Route .COMPLEX 12/07/22 10/24/24 mg-400 unit-5,000 unit/gram top oint (Triple Antibiotic) ondansetron HCl 4 mg tablet 4 mg PO Q6H PRN Nausea And Vomiting 12/07/22 10/24/24 amlodipine 2.5 mg tablet 2.5 mg PO DAILY 07/17/2407/10 food supplemt, lactose-reduced 1 ea PO DAILY 10/24/24 10/24/24 (High-Protein Nutritional Shake oral liquid) sodium phosphates 19 gram-7 118 ml MI DAILY PRN Consti pation 10/24/24 10/24/24 gram/118 mL enema (Fleet Enema) starch (thickening) (Thick-It oral See Rx Instructions .Route .COMPLEX 10/24/24 10/24/24 powder) Previous Rx's ?Medication ?Instructions ?Recorded finasteride 5 mg tablet 5 mg PO BEDTIME@20 #90 tabs 01/19/23 methenamine hippurate 1 gram tablet 1 g PO BID@08,20 # 180 tabs 01/19/23 tamsulosin 0.4 mg capsule 0.4 mg PO BID@08,20 #180 cap s 01/19/23 glycerin (adult) (Fleet Glycerin 1 supp MI DAILY PRN c onstipation 08/03/24 (Adult) rectal suppository) #12 ea Allergies Allergy/AdvReac Type Severity Reaction Status Date / Time No Known Allergies Allergy Verified 08/03/24 13:32 Review of Systems 2 Const: Denies: fever(s) or chills Card: Denies: chest pain Resp: Denies: dyspnea GI: Reports: abdominal pain : Denies: dysuria, urinary frequency or urinary urgency Musc: Denies: neck pain or back pain Skin/Breast: Denies: rash PFSH ED 2 PFSH: Medical History HTN (hypertension) Bladder wall thickening Type 2 diabetes mellitus Atherosclerosis Mental disorder Nonverbal Gross hematuria Elevated PSA Prostate enlargement Surgical History Hx of resection of small bowel Hx of inguinal hernia repair Family History Brother Intellectual disability Father , UNKNOWN AGE AND CAUSE No problems noted. Mother , UNKNOWN AGE AND CAUSE No problems noted. Social History Smoking and tobacco/nicotine status: never used tobacco/nicotine Alcohol intake: never Substance/Drug Use: never Caregiver/support person: Yes Lives independently: No Housing: Other Details: Intermediate Marital status: Single Current occupational status: disabled Physical Exam 2 Const: COMMON NORMALS: no acute distress GENERAL APPEARANCE: cooperative and comfortable ORIENTATION/CONSCIOUSNESS: Yes awake, Yes oriented to person, Yes oriented to place and Yes oriented to time HENMT: COMMON NORMALS: normocephalic, atraumatic and hearing grossly normal bilaterally HEAD & SCALP: normocephalic and atraumatic Resp: COMMON NORMALS: normal respiratory effort, No retractions, No use of accessory muscles and clear to auscultation bilaterally AUSCULTATION: clear to auscultation bilaterally Cardio: COMMON NORMALS: regular rate, regular rhythm and No murmurs present (Cardio) RATE: regular rate RHYTHM: regular rhythm GI: COMMON NORMALS: No hepatosplenomegaly present AUSCULTATION: Yes normoactive bowel sounds PALPATION: Yes Tenderness to palpation present (GI) (Suprapubic), No Guarding due to palpation present (GI) and Yes No hepatosplenomegaly present Extremity: COMMON NORMALS: normal to inspection, capillary refill normal, no clubbing, cyanosis or edema, no calf tenderness and no pedal edema Neuro: SENSORIUM/ORIENTATION: Yes oriented to person, Yes oriented to place and Yes oriented to time Skin: COMMON NORMALS: no rashes or lesions noted GENERAL SKIN EXAM: no rashes or lesions noted Course 2 Vital Signs: Vital signs: Vital Signs Temperature 96.8 F L 10/24/24 09:55 Pulse Rate 68 10/24/24 13:56 Respiratory Rate 17 10/24/24 09:55 Blood Pressure 126/64 10/24/24 13:56 Pulse Oximetry 98 10/24/24 13:56 Oxygen Delivery Me thod Room Air 10/24/24 11:30 MDM - Abdominal Pain Medical Decision Making Urinary retention will place Coles patient is already on tamsulosin 0.4 mg twice daily refer to urology Medical Records Abdominal distention on exam confirmed to be urinary retention place leg bag and Coles is already on tamsulosin 0.4 twice daily refer to urology. Discussed with caregivers some bladder Benuryl they are going to continue like to go back thank at the moment Lab Data 10/24/24 10:20 10/24/24 10:20 Labs/Radiology: Radiology Impressions Abdomen/Pelvis CT 10/24/24 11:25 IMPRESSION: 1. Small to moderate esophageal hiatal hernia. 2. Markedly enlarged nodular prostate with evidence of bladder outlet obstruction. Recommend correlation PSA. 3. No hydronephrosis in either kidney. 4. Contracted gallbladder with dense cholelithiasis appears unchanged. 5. Bilateral fat-containing inguinal hernias. Small amount of fluid along the LEFT proximal inguinal canal is unchanged. Laboratory Results WBC 4.63 10^3/uL (3.29-11.43) 10/24/24 10:20 RBC 3.99 10^6/uL (3.85-5.65) 10/24/24 10:20 Hgb 13.40 g/dL (11.27-16.99) 10/24/24 10:20 Hct 40.8 % (37-53) 10/24/24 10:20 MCV 102.3 fl (82-101) H 10/24/24 10:20 MCH 33.6 pg (27-33) H 10/24/24 10:20 MCHC 32.8 g/dL (30-55) 10/24/24 10:20 RDW 11.9 % (12.1-15.1) L 10/24/24 10:20 Plt Count 152 10^3/cmm (157-399) L 10/24/24 10:20 MPV 10.3 fL (7.4-10.4) 10/24/24 10:20 Neut % (Auto) 64.7 % 10/24/24 10:20 Lymph % (Auto) 22.9 % 10/24/24 10:20 Mineral % (Auto) 9.9 % 10/24/24 10:20 Eos % (Auto) 1.7 % 10/24/24 10:20 Baso % (Auto) 0.4 % 10/24/24 10:20 Neut # (Auto) 2.99 10^3/uL (1.8-7.7) 10/24/24 10:20 Lymph # (Auto) 1.1 10^3/uL (0.8-4.8) 10/24/24 10:20 Mineral # (Auto) 0.5 10^3/uL (0.2-0.9) 10/24/24 10:20 Eos # (Auto) 0.1 10^3/uL (0.0-0.8) 10/24/24 10:20 Baso # (Auto) 0.0 10^3/uL (0.0-0.1) 10/24/24 10:20 Nucleated RBC % (auto) 0 % 10/24/24 10:20 Nucleated RBCs # 0.0 /100WBC 10/24/24 10:20 Sodium 140 mmol/L (136-145) 10/24/24 10:20 Potassium 4.4 mmol/L (3.5-5.1) 10/24/24 10:20 Chloride 103 mmol/L (98-107) 10/24/24 10:20 Carbon Dioxide 29 mmol/L (22-29) 10/24/24 10:20 Anion Gap 12.4 (5-19) 10/24/24 10:20 BUN 19 mg/dL (8-23) 10/24/24 10:20 Creatinine 0.6 mg/dL (0.7-1.2) L 10/24/24 10:20 GFR Calculation 134.0 mL/min (90-130) H 10/24/24 10:20 Glucose 103 mg/dL (65-115) 10/24/24 10:20 Calculated Osmolality 293 mOsm/kg (285-295) 10/24/24 10:20 Calcium 8.9 mg/dL (8.5-10.5) 10/24/24 10:20 Total Bilirubin 0.3 mg/dL (0.15-1.2) 10/24/24 10:20 AST 20 U/L (0-40) 10/24/24 10:20 ALT 26 U/L (0-41) 10/24/24 10:20 Alkaline Phosphatase 126 U/L (40-130) 10/24/24 10:20 Total Protein 6.8 g/dL (6.6-8.7) 10/24/24 10:20 Albumin 3.8 g/dL (3.5-5.2) 10/24/24 10:20 Globulin 3.0 g/dL (1.3-4.6) 10/24/24 10:20 Lipase 42 U/L (13-60) 10/24/24 10:20 Urine Color Yellow (Yellow) 10/24/24 10:41 Urine Appearance Clear (CLEAR) 10/24/24 10:41 Urine pH 5.5 (5-7) 10/24/24 10:41 Ur Specific [place] 1.022 (1.005-1.030) 10/24/24 10:41 Urine Protein Negative (Negative) 10/24/24 10:41 Urine Glucose (UA) Negative (Normal) 10/24/24 10:41 Urine Ketones Negative (Negative) 10/24/24 10:41 Urine Blood Negative (Negative) 10/24/24 10:41 Urine Nitrate Negative (Negative) 10/24/24 10:41 Urine Bilirubin Negative (Negative) 10/24/24 10:41 Urine Urobilinogen 0.2 mg/dL (Negative) 10/24/24 10:41 Ur Leukocyte Esterase Negative (Negative) 10/24/24 10:41 Urine RBC 0-2 /hpf (0-2) 10/24/24 10:41 Urine WBC 0-5 /hpf (0-5) 10/24/24 10:41 Ur Squamous Epith Cells 0-5 /hpf (0-5) 10/24/24 10:41 Amorphous Sediment Not Reportable 10/24/24 10:41 Urine Bacteria None seen /hpf (NONE) 10/24/24 10:41 Hyaline Casts 0-4 /lpf H 10/24/24 10:41 All radiology interpretation(s) finalized by discharge Discharge Plan Discharge Patient Disposition: Home Clinical Impression: BPH loc w urin obs/LUTS, Acute urinary retention Condition: Stable Prescriptions: No Action polyethylene glycol 3350 17 gram/dose powder 17 gm PO DAILY@08 Rx Instructions: hold 2 days if diarrhea ocurs lovastatin 10 mg tablet 10 mg PO BEDTIME@20 acetaminophen 325 mg capsule 650 mg PO Q4H MDD 6 doses PRN (Reason: Pain) Pepto-Bismol Max St 525 mg/15 mL suspension 1,050 mg PO Q4H MDD 6 doses PRN (Reason: upset stomach) melatonin 10 mg capsule 10 mg PO BEDTIME PRN (Reason: Insomnia) Rx Instructions: Not to exceed one dose daily ibuprofen 100 mg/5 mL suspension 400 mg PO Q8H MDD 3 doses PRN (Reason: Pain) promethazine-DM 6.25-15 mg/5 mL syrup 5 ml PO Q6H MDD 4 doses PRN (Reason: Cough) promethazine 25 mg tablet 25 mg PO Q6H MDD 4 doses PRN (Reason: Nausea) lactulose [Constulose] 10 gram/15 mL solution 10 gm PO DAILY PRN (Reason: Constipation) bisacodyl [Dulcolax (bisacodyl)] 10 mg suppository 10 mg MI DAILY PRN (Reason: Constipation) Rx Instructions: for no bm x4 days loperamide 2 mg tablet See Rx Instructions .ROUTE .COMPLEX Rx Instructions: 4mg (2 caps) po after 1st loose stool then one cap after each loose stool thereafter -max of 4 caps in 24 hours simethicone [Gas Relief (simethicone)] 125 mg capsule 125 mg PO Q6H MDD 4 doses PRN (Reason: unknown) tamsulosin 0.4 mg capsule 0.4 mg PO BID@08,20 Qty: 180 3RF methenamine hippurate 1 gram tablet 1 g PO BID@08,20 Qty: 180 3RF Rx Instructions: for recurrent uti. take with 1000 MG of vitamin c at each dose finasteride 5 mg tablet 5 mg PO BEDTIME@20 Qty: 90 3RF glycerin (adult) [Fleet Glycerin (Adult)] Suppository 1 supp MI DAILY PRN (Reason: constipation) Qty: 12 0RF amlodipine 2.5 mg tablet 2.5 mg PO DAILY dextromethorphan-guaifenesin [Tussin DM] 10-100 mg/5 mL Liquid 10 ml PO Q8H MDD 6 doses PRN (Reason: Cough) ondansetron HCl 4 mg tablet 4 mg PO Q6H MDD 4 doses PRN (Reason: Nausea And Vomiting) fluticasone propionate [Flonase] 50 mcg/actuation [place],Suspension 2 spray INTRANASAL DAILY@20 Rx Instructions: administer into each nostril Triple Antibiotic 3.5mg-400 unit- 5,000 unit/gram Ointment See Rx Instructions .ROUTE .COMPLEX Rx Instructions: apply topically to affected area q12h prn cuts/abrasions not to exceed 2 applications in 24 hours ascorbic acid (vitamin C) [Vitamin C] 1,000 mg tablet 1,000 mg PO BID@08,20 Rx Instructions: TAKE WITH EACH DOSE OF METHENAMINE Fleet Enema 19-7 gram/118 mL Enema 118 ml MI DAILY PRN (Reason: Constipation) Thick-It Powder See Rx Instructions .ROUTE .COMPLEX Rx Instructions: Use as directed High-Protein Nutritional Shake Liquid 1 ea PO DAILY Discharge Orders: Discharge ED (Routine); Ordered 10/24/24 Ordered By: Bobby Rosado Referrals: Shu Anders MD [Primary Care Provider] - Discharge Diet: Usual diet Discharge Activity: Increase activity as tolerated Patient Instructions: Opioid Safety, Pain Management Activity Restrictions/Additional Instructions: Thank you for choosing [facility] for your healthcare needs today. It is very important that you follow up as instructed or that you return to the Emergency Department should you have concerns or if your condition changes or worsens in any way. You were seen in the emergency room with complaint of abdominal distention. Evaluation showed you had retained urine. Due to your prostate you are not able to empty your bladder completely. A Coles catheter was placed to allow for bladder drainage. Continue the tamsulosin you have previously been prescribed. activities manager will make arrangements for you to follow-up with urology. Print Language: Bulgarian Coding Level of Care Code ED Filter Helper for Santino Stringer
[2024-10-24 10:55] LABS: Bilirubin Urine Negative (Negative); Blood Urine Negative (Negative); Glucose Urine UA Negative (Normal); Ketones Urine Negative (Negative); Leukocyte Esterase Urine Negative (Negative); Nitrate Urine Negative (Negative); Protein Urine Negative (Negative); Specific Gravity, Urine 1.022 (1.005-1.030); Urine Appearance Clear (CLEAR); Urine Color Yellow (Yellow); Urobilinogen Urine 0.2 mg/dL (Negative); pH Urine 5.5 (5-7)
[2024-10-24 10:58] VITALS: PULSE 58; O2SAT 98
[2024-10-24 11:00] LABS: Add Urine Microscopic? YES; Bacteria Urine None Seen /hpf; Hyaline Casts Urine 0-4 /lpf; RBC Urine 0-2 /hpf (0-2); Squamous Epithelial Cell Urine 0-5 /hpf (0-5); WBC Urine 0-5 /hpf (0-5)
[2024-10-24 11:01] LABS: Alanine Aminotransferase 26 U/L (0-41); Albumin Level 3.8 g/dL (3.5-5.2); Alkaline Phosphatase 126 U/L (40-130); Anion Gap 12.4 (5-19); Aspartate Amino Transferase 20 U/L (0-40); Blood Urea Nitrogen 19 mg/dL (8-23); Calcium 8.9 mg/dL (8.5-10.5); Carbon Dioxide 29 mmol/L (22-29); Chloride 103 mmol/L (98-107); Glucose 103 mg/dL (65-115); Lipase 42 U/L (13-60); Osmolality Calculated 293 mOsm/kg (285-295); Potassium 4.4 mmol/L (3.5-5.1); Sodium 140 mmol/L (136-145); Total Bilirubin 0.3 mg/dL (0.15-1.2); Total Protein 6.8 g/dL (6.6-8.7)
[2024-10-24 11:06] LABS: Add Urine Culture? No
--- NOTE | 2024-10-24 11:25 | CT_ITS ---
WS: [id number] CT ABDOMEN PELVIS TECHNIQUE: Noncontrast CT of the abdomen and pelvis with coronal and sagittal reformatted images. CLINICAL INFORMATION: Abdominal pain COMPARISON: 2021 DLP: 521.[address] scans at [facility] use at least one of these dose optimization techniques: automated exposure control; mA and/or kV adjustment per patient size (includes targeted exams where dose is matched to clinical indication); or iterative reconstruction. FINDINGS: Multinodular lobulated prostate with calcifications. Prostate measures 4.2 x 4.5 cm. Recommend correlation PSA. Normal appendix in the RIGHT lower quadrant. Fat-containing RIGHT greater than LEFT inguinal hernias. Small mild fluid along the LEFT proximal inguinal hernia unchanged since 2021 bibasilar atelectasis. Gallbladder is contracted with dense cholelithiasis. This is similar to previous. Otherwise normal noncontrast liver. Moderate esophageal hiatal hernia. Tiny pericardial effusion. Noncontrast pancreas is normal. Normal appendix in the RIGHT lower quadrant. Mild lumbar curve. Spondylitic changes lumbar spine. CT/CT abdomen pelvis wo con [id number] IMPRESSION: 1. Small to moderate esophageal hiatal hernia. 2. Markedly enlarged nodular prostate with evidence of bladder outlet obstruct ion. Recommend correlation PSA. 3. No hydronephrosis in either kidney. 4. Contracted gallbladder with dense cholelithiasis appears unchanged. 5. Bilateral fat-containing inguinal hernias. Small amount of fluid along the LEFT proximal inguinal canal is unchanged.
[2024-10-24 11:30] VITALS: BP 111/73; PULSE 56; O2SAT 98
[2024-10-24 13:00] VITALS: BP 113/58; PULSE 61; O2SAT 99
[2024-10-24 13:56] VITALS: BP 126/64; PULSE 68; O2SAT 98
--- NOTE | 2024-10-25 07:38 | DCPLANNER ---
Urology referral sent to [facility]
== END 2024-10-24 13:58 | disposition home or self-care (01) ==
PROVIDERS: Physician Assistant; Emergency Provider Family Medicine; PCP Internal Medicine
DX: N40.1 Benign prostatic hyperplasia with lower urinary tract symptoms (principal); R33.9 Retention of urine, unspecified; E11.9 Type 2 diabetes mellitus without complications; I10 Essential (primary) hypertension
CPT/HCPCS: 36415; 51702; 74176; 80053; 81001; 83690; 85025; 99284

== ENCOUNTER 2024-11-05 17:08 | Outpatient (CLI) | payer MEDICARE, MEDICAID, SELFPAY ==
[2024-11-06 09:02] LABS: Bilirubin Urine Negative (Negative); Blood Urine 1+ (Negative); Glucose Urine UA Negative (Normal); Ketones Urine Negative (Negative); Leukocyte Esterase Urine 1+ (Negative); Nitrate Urine Negative (Negative); Protein Urine Trace (Negative); Specific Gravity, Urine 1.025 (1.005-1.030); Urine Appearance Turbid (CLEAR); Urine Color Yellow (Yellow); Urobilinogen Urine 0.2 mg/dL (Negative); pH Urine 5.5 (5-7)
[2024-11-06 09:23] LABS: Add Urine Microscopic? YES; Bacteria Urine 4+ /hpf; Squamous Epithelial Cell Urine 0-4 /hpf (0-5); UA Manual Slide Review YES
== END 2024-11-05 17:09 | disposition home or self-care (01) ==
LOC: LAB 17:12
PROVIDERS: PCP Internal Medicine; Visit Provider Internal Medicine
DX: N30.00 Acute cystitis without hematuria (principal)
CPT/HCPCS: 81001; 87086

== ENCOUNTER 2025-01-16 12:57 | Emergency (ER) | payer MEDICARE, MEDICAID, SELFPAY ==
[2025-01-16 13:04] VITALS: BP 119/72; PULSE 78; TEMP 36.4; O2SAT 96
--- NOTE | 2025-01-16 13:31 | ED_ITS ---
HPI - Male Genitourinary 2 General: Chief complaint: Urogenital-Male Stated complaint: urinary surg December 25, bleeding Time Seen by Provider: 01/16/25 13:18 History of Present Illness: 69-year-old male with a history of hyper tension, type 2 diabetes, coronary artery disease, developmental delay and is nonverbal, BPH with recent TURP in [place] who presents to the emergency room with hematuria. No reports of fever. No change in his mentation. Has been going on for couple days. At the home he is from they had checked a urine and at that time it was negative for infection. He said he has been having clots now. No evidence of urinary retention. He had had a suprapubic catheter placed at the time of the TURP last week. The suprapubic catheter is capped off and he has been urinating normally. They recheck output from the suprapubic catheter each shift and he has had no issues. Related Data Home Medications ?Medication ?Instructions ?Recorded ?Confirmed acetaminophen 325 mg capsule 650 mg PO Q4H PRN Pain 01/16/25 bisacodyl 10 mg rectal suppository 10 mg OH DAILY PRN Constipation 02/21/20 01/16/25 (Dulcolax (bisacodyl)) bismuth subsalicylate 525 mg/15 mL 1,050 mg PO Q4H PRN upset stomach 02/21/20 01/16/25 oral suspension (Pepto-Bismol Max St) ibuprofen 100 mg/5 mL oral 400 mg PO Q8H PRN Pain 07/0 04/0401/16/25 suspension lactulose 10 gram/15 mL oral 10 gm PO DAILY PRN Consti pation 02/21/20 01/16/25 solution (Constulose) loperamide 2 mg tablet See Rx Instructions .Route . COMPLEX 02/21/20 01/16/25 lovastatin 10 mg tablet 10 mg PO BEDTIME@02/21/20 01/16/25 melatonin 10 mg capsule 10 mg PO BEDTIME PRN Insomni a 02/21/20 01/16/25 polyethylene glycol 3350 17 17 gm PO DAILY@08 02/21/20 01/16/25 gram/dose oral powder promethazine 25 mg tablet 25 mg PO Q6H PRN Nausea 07/0 04/0401/16/25 promethazine-DM 6.25 mg-15 mg/5 mL 5 ml PO Q6H PRN Cou gh 02/21/20 01/16/25 oral syrup simethicone 125 mg capsule (Gas 125 mg PO Q6H PRN unkn own 11/21/21 01/16/25 Relief (simethicone)) ascorbic acid (vitamin C) 1,000 mg 1,000 mg PO BID@08, 20 12/07/22 01/16/25 tablet (Vitamin C) dextromethorphan-guaifenesin 10 10 ml PO Q8H PRN Cough 12/07/22 01/16/25 mg-100 mg/5 mL oral liquid (Tussin DM) fluticasone propionate 50 2 spray intranasal DAILY@20 12/07/22 01/16/25 mcg/actuation nasal spray,suspension neomycin-bacitracn Zn-polymyx 3.5 See Rx Instructions .Route .COMPLEX 12/07/22 01/16/25 mg-400 unit-5,000 unit/gram top oint (Triple Antibiotic) ondansetron HCl 4 mg tablet 4 mg PO Q6H PRN Nausea And Vomiting 12/07/22 01/16/25 amlodipine 2.5 mg tablet 2.5 mg PO QAM 07/17/2401/16 food supplemt, lactose-reduced 1 ea PO QAM 10/24/24 (High-Protein Nutritional Shake oral liquid) sodium phosphates 19 gram-7 118 ml OH DAILY PRN Consti pation 10/24/24 01/16/25 gram/118 mL enema (Fleet Enema) starch (thickening) (Thick-It oral See Rx Instructions .Route .COMPLEX 10/24/24 01/16/25 powder) Previous Rx's ?Medication ?Instructions ?Recorded finasteride 5 mg tablet 5 mg PO BEDTIME@20 #90 tabs 01/19/23 methenamine hippurate 1 gram tablet 1 g PO BID@08,20 # 180 tabs 01/19/23 tamsulosin 0.4 mg capsule 0.4 mg PO BID@08,20 #180 cap s 01/19/23 glycerin (adult) (Fleet Glycerin 1 supp OH DAILY PRN c onstipation 08/03/24 (Adult) rectal suppository) #12 ea cephalexin 500 mg tablet 500 mg PO TID 7 days #21 tab s 01/16/25 Allergies Allergy/AdvReac Type Severity Reaction Status Date / Time No Known Allergies Allergy Verified 01/16/25 13:12 Review of Systems 2 General: Reports: ROS unobtainable due to medical condition PFSH ED 2 PFSH: Medical History HTN (hypertension) Bladder wall thickening Type 2 diabetes mellitus Atherosclerosis Mental disorder Nonverbal Gross hematuria Elevated PSA Prostate enlargement Surgical History Hx of resection of small bowel Hx of inguinal hernia repair Family History Brother Intellectual disability Father , UNKNOWN AGE AND CAUSE No problems noted. Mother , UNKNOWN AGE AND CAUSE No problems noted. Social History Smoking and tobacco/nicotine status: never used tobacco/nicotine Alcohol intake: never Substance/Drug Use: never Caregiver/support person: Yes Lives independently: No Housing: Other Details: Retirement Marital status: Single Current occupational status: disabled Physical Exam 2 Narrative: EXAM NARRATIVE: General: Alert, no acute distress. Skin: Warm, dry. Head: Normocephalic, atraumatic. Neck: Supple, trachea midline. Eye: Extraocular movements are intact. Ears, nose, mouth and throat: mucosa moist. Cardiovascular: Regular, Normal peripheral perfusion. Respiratory: Lungs are clear to auscultation, respirations are non-labored, breath sounds are equal, Symmetrical chest wall expansion. Gastrointestinal: Soft, Nontender, Non distended Musculoskeletal: Normal ROM, no deformity. Neurological: Alert and oriented, No focal neurological deficit observed. Psychiatric: Cooperative, appropriate mood & affect. Course 2 Vital Signs: Vital signs: Vital Signs Temperature 97.6 F 01/16/25 13:04 Pulse Rate 78 01/16/25 13:04 Blood Pressure 119/72 01/16/25 13:04 Pulse Oximetry 96 01/16/25 13:04 Oxygen Delivery Me thod Room Air 01/16/25 13:04 MDM - Male Medical Decision Making Medical decision making: Differential diagnosis for complaint of hematuria including but not limited to and based on the above HPI, review of systems and physical exam: UTI / hemorrhagic cystitis, pyelonephritis, kidney stones, bladder cancer Orders placed to evaluate differential diagnosis based on the above differential, HPI and physical exam LAb Review: Laboratory results were reviewed and interpreted by myself the emergency room physician. No leukocytosis. No anemia. No renal failure. Urinalysis is positive for leukocyte esterase and leukocytes. Some mild amount of hematuria. No bacteria. I reviewed the patient's medical record. Reexamination: Patient remained stable. No increased work of breathing. No altered mental status. No focal motor deficits. Consultation: I spoke with the urologist on-call who would perform the patient's procedure at [facility]. He says that he would expect bleeding and clots at this point at 2 weeks out because of a scab coming loose at about this time. He says antibiotics likely are necessary but send a culture and if they are negative antibiotics can be stopped. Assessment and plan: Hematuria Urinary tract infection ? IV cefepime in the emergency room - Discharged home - Discussed plan with patient. Answered any questions. - Evaluation and treatment of this problem were appropriate in the emergency setting. Lab Data 01/16/25 14:12 01/16/25 14:57 Laboratory Results WBC 6.78 10^3/uL (3.29-11.43) 01/16/25 14:12 RBC 4.06 10^6/uL (3.85-5.65) 01/16/25 14:12 Hgb 12.90 g/dL (11.27-16.99) 01/16/25 14:12 Hct 40.4 % (37-53) 01/16/25 14:12 MCV 99.5 fl (82-101) 01/16/25 14:12 MCH 31.8 pg (27-33) 01/16/25 14:12 MCHC 31.9 g/dL (30-55) 01/16/25 14:12 RDW 11.9 % (12.1-15.1) L 01/16/25 14:12 Plt Count 239 10^3/cmm (157-399) 01/16/25 14:12 MPV 9.9 fL (7.4-10.4) 01/16/25 14:12 Neut % (Auto) 59.3 % 01/16/25 14:12 Lymph % (Auto) 25.8 % 01/16/25 14:12 [place] % (Auto) 9.3 % 01/16/25 14:12 Eos % (Auto) 4.3 % 01/16/25 14:12 Baso % (Auto) 0.9 % 01/16/25 14:12 Neut # (Auto) 4.02 10^3/uL (1.8-7.7) 01/16/25 14:12 Lymph # (Auto) 1.8 10^3/uL (0.8-4.8) 01/16/25 14:12 [place] # (Auto) 0.6 10^3/uL (0.2-0.9) 01/16/25 14:12 Eos # (Auto) 0.3 10^3/uL (0.0-0.8) 01/16/25 14:12 Baso # (Auto) 0.1 10^3/uL (0.0-0.1) 01/16/25 14:12 Nucleated RBC % (auto) 0 % 01/16/25 14:12 Nucleated RBCs # 0.0 /100WBC 01/16/25 14:12 Sodium 137 mmol/L (136-145) 01/16/25 14:57 Potassium 4.0 mmol/L (3.5-5.1) 01/16/25 14:57 Chloride 99 mmol/L (98-107) 01/16/25 14:57 Carbon Dioxide 28 mmol/L (22-29) 01/16/25 14:57 Anion Gap 14.0 (5-19) 01/16/25 14:57 BUN 17 mg/dL (8-23) 01/16/25 14:57 Creatinine 0.7 mg/dL (0.7-1.2) 01/16/25 14:57 GFR Calculation 111.8 mL/min (90-130) 01/16/25 14:57 Glucose 88 mg/dL (65-115) 01/16/25 14:57 Calculated Osmolality 285 mOsm/kg (285-295) 01/16/25 14:57 Lactic Acid 1.2 mmol/L (0.5-2.2) 01/16/25 14:57 Calcium 8.9 mg/dL (8.5-10.5) 01/16/25 14:57 Total Bilirubin 0.2 mg/dL (0.15-1.2) 01/16/25 14:57 AST 14 U/L (0-40) 01/16/25 14:57 ALT 13 U/L (0-41) 01/16/25 14:57 Alkaline Phosphatase 126 U/L (40-130) 01/16/25 14:57 Total Protein 6.7 g/dL (6.6-8.7) 01/16/25 14:57 Albumin 3.3 g/dL (3.5-5.2) L 01/16/25 14:57 Globulin 3.4 g/dL (1.3-4.6) 01/16/25 14:57 Urine Color Red (Yellow) A 01/16/25 13:25 Urine Appearance Cloudy (CLEAR) A 01/16/25 13:25 Urine pH 6.5 (5-7) 01/16/25 13:25 Ur Specific [place] 1.006 (1.005-1.030) 01/16/25 13:25 Urine Protein 2+ (Negative) A 01/16/25 13:25 Urine Glucose (UA) Negative (Normal) 01/16/25 13:25 Urine Ketones Negative (Negative) 01/16/25 13:25 Urine Blood 3+ (Negative) A 01/16/25 13:25 Urine Nitrate Negative (Negative) 01/16/25 13:25 Urine Bilirubin Negative (Negative) 01/16/25 13:25 Urine Urobilinogen 0.2 mg/dL (Negative) 01/16/25 13:25 Ur Leukocyte Esterase 3+ (Negative) A 01/16/25 13:25 Urine RBC 3-5 /hpf (0-2) 01/16/25 13:25 Urine WBC >100 /hpf (0-5) H 01/16/25 13:25 Ur Squamous Epith Cells 0-5 /hpf (0-5) 01/16/25 13:25 Amorphous Sediment Not Reportable 01/16/25 13:25 Urine Bacteria None seen /hpf (NONE) 01/16/25 13:25 Hyaline Casts 2.46 /lpf 01/16/25 13:25 All radiology interpretation(s) finalized by discharge Discharge Plan Discharge Patient Disposition: Home Clinical Impression: Hematuria, Recurrent UTI Condition: Stable Prescriptions: New cephalexin 500 mg tablet 500 mg PO TID 7 Days Qty: 21 0RF No Action polyethylene glycol 3350 17 gram/dose powder 17 gm PO DAILY@08 Rx Instructions: hold 2 days if diarrhea ocurs lovastatin 10 mg tablet 10 mg PO BEDTIME@20 acetaminophen 325 mg capsule 650 mg PO Q4H MDD 6 doses PRN (Reason: Pain) Pepto-Bismol Max St 525 mg/15 mL suspension 1,050 mg PO Q4H MDD 6 doses PRN (Reason: upset stomach) melatonin 10 mg capsule 10 mg PO BEDTIME PRN (Reason: Insomnia) Rx Instructions: Not to exceed one dose daily ibuprofen 100 mg/5 mL suspension 400 mg PO Q8H MDD 3 doses PRN (Reason: Pain) promethazine-DM 6.25-15 mg/5 mL syrup 5 ml PO Q6H MDD 4 doses PRN (Reason: Cough) promethazine 25 mg tablet 25 mg PO Q6H MDD 4 doses PRN (Reason: Nausea) lactulose [Constulose] 10 gram/15 mL solution 10 gm PO DAILY PRN (Reason: Constipation) bisacodyl [Dulcolax (bisacodyl)] 10 mg suppository 10 mg OH DAILY PRN (Reason: Constipation) Rx Instructions: for no bm x4 days loperamide 2 mg tablet See Rx Instructions .ROUTE .COMPLEX Rx Instructions: 4mg (2 caps) po after 1st loose stool then one cap after each loose stool thereafter -max of 4 caps in 24 hours simethicone [Gas Relief (simethicone)] 125 mg capsule 125 mg PO Q6H MDD 4 doses PRN (Reason: unknown) tamsulosin 0.4 mg capsule 0.4 mg PO BID@08,20 Qty: 180 3RF methenamine hippurate 1 gram tablet 1 g PO BID@08,20 Qty: 180 3RF Rx Instructions: for recurrent uti. take with 1000 MG of vitamin c at each dose finasteride 5 mg tablet 5 mg PO BEDTIME@20 Qty: 90 3RF glycerin (adult) [Fleet Glycerin (Adult)] Suppository 1 supp OH DAILY PRN (Reason: constipation) Qty: 12 0RF amlodipine 2.5 mg tablet 2.5 mg PO QAM dextromethorphan-guaifenesin [Tussin DM] 10-100 mg/5 mL Liquid 10 ml PO Q8H MDD 6 doses PRN (Reason: Cough) ondansetron HCl 4 mg tablet 4 mg PO Q6H MDD 4 doses PRN (Reason: Nausea And Vomiting) fluticasone propionate [Flonase] 50 mcg/actuation [place],Suspension 2 spray INTRANASAL DAILY@20 Rx Instructions: administer into each nostril Triple Antibiotic 3.5mg-400 unit- 5,000 unit/gram Ointment See Rx Instructions .ROUTE .COMPLEX Rx Instructions: Apply topically to affected area every 12 hours as needed for cuts/abrasions not to exceed 2 applications in 24 hours ascorbic acid (vitamin C) [Vitamin C] 1,000 mg tablet 1,000 mg PO BID@08,20 Rx Instructions: TAKE WITH EACH DOSE OF METHENAMINE Fleet Enema 19-7 gram/118 mL Enema 118 ml OH DAILY PRN (Reason: Constipation) Thick-It Powder See Rx Instructions .ROUTE .COMPLEX Rx Instructions: Use as directed High-Protein Nutritional Shake Liquid 1 ea PO QAM Discharge Orders: Discharge ED (Routine); Ordered 01/16/25 Ordered By: Luana Saenz Referrals: Shu Anders MD [Primary Care Provider, Internal Medicine] Discharge Diet: Usual diet Discharge Activity: Increase activity as tolerated Patient Instructions: Hematuria (ED), Opioid Safety, Pain Management Activity Restrictions/Additional Instructions: Call back for urine culture results in 2 to 3 days and if cultures are negative antibiotics can be discontinued. Continue to follow-up with urology as previously instructed Thank you for choosing [facility] for your healthcare needs today. You have been screened and evaluated and felt safe for discharge. Health conditions do change or evolve sometimes and as such it is important that you follow up with your Primary Doctor to be re checked, 3-5 days is a general good time frame for follow up. You are always welcome to return to the ED for re assessment if your symptoms are worsening or you have new concerns Print Language: Taiwanese Coding Level of Care Code ED [employer] Coordinator for Santino Stringer
[2025-01-16 13:33] LABS: Bilirubin Urine Negative (Negative); Blood Urine 3+ (Negative); Glucose Urine UA Negative (Normal); Ketones Urine Negative (Negative); Leukocyte Esterase Urine 3+ (Negative); Nitrate Urine Negative (Negative); Protein Urine 2+ (Negative); Specific Gravity, Urine 1.006 (1.005-1.030); Urine Appearance Cloudy (CLEAR); Urobilinogen Urine 0.2 mg/dL (Negative); pH Urine 6.5 (5-7)
[2025-01-16 13:36] LABS: Bacteria Urine None Seen /hpf; Hyaline Casts Urine 2.46 /lpf; Squamous Epithelial Cell Urine 0-5 /hpf (0-5); WBC Urine >100 /hpf (0-5)
[2025-01-16 13:49] LABS: Add Urine Culture? Yes; Urine Color Red (Yellow)
[2025-01-16] MEDS: cefepime 2,000 mg SDV 2000 MG IVP (14:34)
[2025-01-16 14:43] LABS: Basophils # 0.1 10^3/uL (0.0-0.1); Basophils % 0.9 %; Eosinophils # 0.3 10^3/uL (0.0-0.8); Eosinophils % 4.3 %; Hematocrit 40.4 % (37-53); Lymphocytes # 1.8 10^3/uL (0.8-4.8); Lymphocytes % 25.8 %; Mean Corpuscular HGB Conc 31.9 g/dL (30-55); Mean Corpuscular Hemoglobin 31.8 pg (27-33); Mean Corpuscular Volume 99.5 fl (82-101); Mean Platelet Volume 9.9 fL (7.4-10.4); Monocytes # 0.6 10^3/uL (0.2-0.9); Monocytes % 9.3 %; Neutrophils # 4.02 10^3/uL (1.8-7.7); Neutrophils % 59.3 %; Nucleated Red Blood Cells % 0 %; Platelet Count 239 10^3/cmm (157-399); Red Blood Count 4.06 10^6/uL (3.85-5.65); Red Cell Distribution Width 11.9 % (12.1-15.1); White Blood Count 6.78 10^3/uL (3.29-11.43)
--- NOTE | 2025-01-16 14:46 | PC.PHAR ---
Pt is from [facility]-has guardian
[2025-01-16 15:00] VITALS: PULSE 77; O2SAT 100
[2025-01-16 15:30] LABS: Alanine Aminotransferase 13 U/L (0-41); Albumin Level 3.3 g/dL (3.5-5.2); Alkaline Phosphatase 126 U/L (40-130); Aspartate Amino Transferase 14 U/L (0-40); Blood Urea Nitrogen 17 mg/dL (8-23); Calcium 8.9 mg/dL (8.5-10.5); Carbon Dioxide 28 mmol/L (22-29); Chloride 99 mmol/L (98-107); Globulin 3.4 g/dL (1.3-4.6); Glomerular Filtration Rate 111.8 mL/min (90-130); Glucose 88 mg/dL (65-115); Osmolality Calculated 285 mOsm/kg (285-295); Sodium 137 mmol/L (136-145); Total Bilirubin 0.2 mg/dL (0.15-1.2); Total Protein 6.7 g/dL (6.6-8.7)
[2025-01-16 15:31] LABS: Lactic Sepsis W/Reflex 1.2 mmol/L (0.5-2.2)
[2025-01-16 15:49] VITALS: BP 134/81; PULSE 74; O2SAT 97
== END 2025-01-16 15:51 | disposition home or self-care (01) ==
PROVIDERS: Emergency Provider Emergency Medicine; PCP Internal Medicine
DX: R31.9 Hematuria, unspecified (principal); N39.0 Urinary tract infection, site not specified; E11.9 Type 2 diabetes mellitus without complications; I10 Essential (primary) hypertension
CPT/HCPCS: 36415; 51798; 80053; 81001; 83605; 85025; 87040; 87077; 87086; 87186; 96374; 99284; J0692